=== PATIENT | male | born 1955 | race Caucasian/White ===

== ENCOUNTER → 2018-08-28 | Outpatient (CLI) | payer MEDICARE, OTHER | LOC: M.WC 07:49 | DX: E11.621 Type 2 diabetes mellitus with foot ulcer (principal); L97.522 Non-pressure chronic ulcer of other part of left foot with fat layer exposed; L97.512 Non-pressure chronic ulcer of other part of right foot with fat layer exposed; S80.212A Abrasion, left knee, initial encounter; I50.9 Heart failure, unspecified; E11.22 Type 2 diabetes mellitus with diabetic chronic kidney disease; N18.6 End stage renal disease; E11.40 Type 2 diabetes mellitus with diabetic neuropathy, unspecified; Z86.73 Personal history of transient ischemic attack (TIA), and cerebral infarction without residual deficits; Z79.4 Long term (current) use of insulin; Z99.2 Dependence on renal dialysis; X58.XXXA Exposure to other specified factors, initial encounter; Y93.89 Activity, other specified; Y92.89 Other specified places as the place of occurrence of the external cause; Y99.8 Other external cause status ==

== ENCOUNTER → 2018-08-30 | Outpatient (CLI) | payer MEDICARE, OTHER | LOC: M.WC 04:31 | DX: E11.621 Type 2 diabetes mellitus with foot ulcer (principal); L97.511 Non-pressure chronic ulcer of other part of right foot limited to breakdown of skin; L97.521 Non-pressure chronic ulcer of other part of left foot limited to breakdown of skin; S80.211A Abrasion, right knee, initial encounter; E11.22 Type 2 diabetes mellitus with diabetic chronic kidney disease; N18.6 End stage renal disease; I50.9 Heart failure, unspecified; Z99.2 Dependence on renal dialysis; Z86.73 Personal history of transient ischemic attack (TIA), and cerebral infarction without residual deficits; Z79.4 Long term (current) use of insulin; X58.XXXA Exposure to other specified factors, initial encounter; Y93.89 Activity, other specified; Y92.89 Other specified places as the place of occurrence of the external cause; Y99.8 Other external cause status ==

== ENCOUNTER → 2018-09-04 | Outpatient (CLI) | payer MEDICARE, OTHER | LOC: M.WC 04:56 | DX: E11.621 Type 2 diabetes mellitus with foot ulcer (principal); L97.511 Non-pressure chronic ulcer of other part of right foot limited to breakdown of skin; L97.521 Non-pressure chronic ulcer of other part of left foot limited to breakdown of skin; S80.211A Abrasion, right knee, initial encounter; E11.22 Type 2 diabetes mellitus with diabetic chronic kidney disease; N18.6 End stage renal disease; I50.9 Heart failure, unspecified; Z86.73 Personal history of transient ischemic attack (TIA), and cerebral infarction without residual deficits; Z79.4 Long term (current) use of insulin; X58.XXXA Exposure to other specified factors, initial encounter; Y93.89 Activity, other specified; Y92.89 Other specified places as the place of occurrence of the external cause; Y99.8 Other external cause status ==

== ENCOUNTER → 2018-09-11 | Outpatient (CLI) | payer MEDICARE, OTHER | LOC: M.WC 03:31 | DX: E11.621 Type 2 diabetes mellitus with foot ulcer (principal); L97.512 Non-pressure chronic ulcer of other part of right foot with fat layer exposed; L97.522 Non-pressure chronic ulcer of other part of left foot with fat layer exposed; L84 Corns and callosities; E11.22 Type 2 diabetes mellitus with diabetic chronic kidney disease; N18.6 End stage renal disease; I50.9 Heart failure, unspecified; Z99.2 Dependence on renal dialysis; Z79.4 Long term (current) use of insulin; Z86.73 Personal history of transient ischemic attack (TIA), and cerebral infarction without residual deficits ==

== ENCOUNTER → 2018-09-16 | Outpatient (CLI) | payer MEDICARE, OTHER | LOC: M.ULTRA 12:20 | DX: E11.621 Type 2 diabetes mellitus with foot ulcer (principal); L97.529 Non-pressure chronic ulcer of other part of left foot with unspecified severity; L97.519 Non-pressure chronic ulcer of other part of right foot with unspecified severity ==

== ENCOUNTER → 2018-09-18 | Outpatient (CLI) | payer MEDICARE, OTHER | LOC: M.WC 05:24 | DX: E11.621 Type 2 diabetes mellitus with foot ulcer (principal); L97.521 Non-pressure chronic ulcer of other part of left foot limited to breakdown of skin; L97.512 Non-pressure chronic ulcer of other part of right foot with fat layer exposed; L97.411 Non-pressure chronic ulcer of right heel and midfoot limited to breakdown of skin; L84 Corns and callosities; E11.22 Type 2 diabetes mellitus with diabetic chronic kidney disease; N18.6 End stage renal disease; E11.42 Type 2 diabetes mellitus with diabetic polyneuropathy; I50.9 Heart failure, unspecified; Z86.73 Personal history of transient ischemic attack (TIA), and cerebral infarction without residual deficits; Z99.2 Dependence on renal dialysis ==

== ENCOUNTER → 2018-10-02 | Outpatient (CLI) | payer MEDICARE, OTHER | LOC: M.WC 05:10 | DX: E11.621 Type 2 diabetes mellitus with foot ulcer (principal); L97.512 Non-pressure chronic ulcer of other part of right foot with fat layer exposed; L97.521 Non-pressure chronic ulcer of other part of left foot limited to breakdown of skin; E11.22 Type 2 diabetes mellitus with diabetic chronic kidney disease; N18.6 End stage renal disease; I50.9 Heart failure, unspecified; Z86.73 Personal history of transient ischemic attack (TIA), and cerebral infarction without residual deficits; Z99.2 Dependence on renal dialysis ==

== ENCOUNTER → 2018-10-16 | Outpatient (CLI) | payer MEDICARE, OTHER | LOC: M.WC 10-09 14:30 | DX: E11.621 Type 2 diabetes mellitus with foot ulcer (principal); L97.512 Non-pressure chronic ulcer of other part of right foot with fat layer exposed; L97.412 Non-pressure chronic ulcer of right heel and midfoot with fat layer exposed; L97.521 Non-pressure chronic ulcer of other part of left foot limited to breakdown of skin; E11.42 Type 2 diabetes mellitus with diabetic polyneuropathy; E11.22 Type 2 diabetes mellitus with diabetic chronic kidney disease; N18.6 End stage renal disease; I50.9 Heart failure, unspecified; Z86.73 Personal history of transient ischemic attack (TIA), and cerebral infarction without residual deficits; Z99.2 Dependence on renal dialysis ==

== ENCOUNTER → 2018-10-23 | Outpatient (CLI) | payer MEDICARE, OTHER | LOC: M.WC 04:57 | DX: E11.621 Type 2 diabetes mellitus with foot ulcer (principal); L97.521 Non-pressure chronic ulcer of other part of left foot limited to breakdown of skin; L97.511 Non-pressure chronic ulcer of other part of right foot limited to breakdown of skin; E11.22 Type 2 diabetes mellitus with diabetic chronic kidney disease; I50.9 Heart failure, unspecified; N18.6 End stage renal disease; Z86.73 Personal history of transient ischemic attack (TIA), and cerebral infarction without residual deficits; Z99.2 Dependence on renal dialysis ==

== ENCOUNTER 2018-11-06 04:57 | Inpatient (IN) | payer MEDICARE, OTHER ==
[~2018-11-06] VITALS: Ht 180.3 cm; Wt 82.6 kg
[2018-11-06 14:35] VITALS: BP 150/90
[2018-11-06 15:41] LABS: ABSOLUTE BASOPHILS 0.1 thou/uL (0.0-0.2); ABSOLUTE EOSINOPHILS 0.2 thou/uL (0.0-0.7); ABSOLUTE LYMPHOCYTES 1.2 thou/uL (0.8-5.3); ABSOLUTE MONOCYTES 0.4 thou/uL (0.0-1.2); ABSOLUTE NEUTROPHILS 6.3 thou/uL (1.6-8.1); BASOPHILS 0.8 %; EOSINOPHILS 1.9 %; HEMATOCRIT 27.4 % (42.0-52.0); HEMOGLOBIN 9.4 gm/dL (14.0-18.0); LYMPHOCYTES 14.1 %; MCH 31.7 pg (26.0-34.0); MCHC 34.4 g/dL (28.0-37.0); MCV 92.1 fL (80.0-100.0); MONOCYTES 5.5 %; MPV 7.7 fl. (7.2-11.1); NUCLEATED RBCS 0 /100WBC; PLATELET COUNT* 389 thou/uL (150-400); POLYS 77.7 %; RBC 2.97 mil/uL (4.50-6.00); RDW-CV 14.2 % (10.5-14.5); WBC 8.2 thou/uL (4.0-11.0)
[2018-11-06 15:51] LABS: APTT 31.9 Seconds (25.0-31.3); INR 1.1; PROTIME 10.8 Seconds (9.20-11.50)
[2018-11-06 15:55] LABS: ALBUMIN 2.4 g/dL (3.4-5.0); CALCIUM 7.5 mg/dL (8.5-10.1); CREATININE 5.1 mg/dL (0.6-1.3); MAGNESIUM 1.9 mg/dL (1.8-2.4); POTASSIUM 3.8 mmol/L (3.5-5.1); TOTAL BILIRUBIN 0.3 mg/dL (<0.1-1.0)
[2018-11-06 16:00] VITALS: BP 142/84
[2018-11-06] MEDS ORDERED: BUMEX2 MG PO (17:12)
[2018-11-06] MEDS ORDERED: DULERA 100 MCG/13 GM INH (17:13)
[2018-11-06] MEDS ORDERED: NEURONTIN 300300 M1 PO (17:13)
[2018-11-06] MEDS ORDERED: GABAPENTIN 100100 MG PO (17:14)
[2018-11-06] MEDS ORDERED: HUMULIN R100 UNIT/M SUBQ (17:14)
[2018-11-06] MEDS ORDERED: SYNTHROID125 MC1 PO (17:15)
[2018-11-06] MEDS ORDERED: HUMULIN N100 UNIT/1 SUBQ (17:15)
[2018-11-06] MEDS ORDERED: SIMVASTATIN40 MG PO (17:16)
[2018-11-06] MEDS ORDERED: PROTONIX40 M1 PO (17:16)
[2018-11-06] MEDS ORDERED: PLAVIX 75 MG TA75 M1 PO (17:17)
[2018-11-06] MEDS ORDERED: RENVELA800 MG PO (17:17)
[2018-11-06] MEDS ORDERED: ASPIR 8181 MG PO (17:17)
[2018-11-06] MEDS ORDERED: RENAL CAPS SOFTG1 MG PO (17:17)
--- NOTE | 2018-11-06 17:40 | NUR ---
PATIENT ARRIVED FROM WOUND CARE CENTER THIS AFTERNOON DIRECT ADMIT. WOUNDS TO RIGHT FOOT. IV STARTED AND IV ANTIBIOTICS INFUSED ORDERED. PATIENT HAS COMPLAINTS OF PAIN, TREATED ADEQUATELY WITH MORPHINE. PATIENT SEEN BY DR BROWNING AND WOUND CARE NURSE AND DR HUTCHINSON. PATIENT HAS DIALYSIS T//SAT NEPHROLOGY AWARE. PATIENT IS UP AD ISRAEL WITH SCOOTER. PATIENT DENIES ANY NEEDS AT THIS TIME. CALL LIGHT WITHIN REACH.
[2018-11-06 21:11] VITALS: BP 135/58
[2018-11-07 03:56] VITALS: BP 122/48
[2018-11-07 04:58] LABS: ALBUMIN 2.2 g/dL (3.4-5.0); CALCIUM 7.4 mg/dL (8.5-10.1); CREATININE 5.4 mg/dL (0.6-1.3); POTASSIUM 3.6 mmol/L (3.5-5.1); TOTAL BILIRUBIN 0.3 mg/dL (<0.1-1.0); TOTAL PROTEIN 5.7 g/dL (6.4-8.2)
--- NOTE | 2018-11-07 05:15 | NUR ---
PATIENT A/O X4. UP AD ISRAEL. LOWER EXTREMETIES ARE SWOLLEN. HE HAS DIALYSIS PORT ON LEFT SIDE. DIALYSIS NURSE KAYLENE CALLED AND REQUESTED A CMP FOR DR DURÁN SHE WILL BE IN TODAY FOR DIALYSIS APPOINTMENT AROUND 0730. PATIENT RECEIVED SCHEDULED NAFCILLIN IV THROUGH SHIFT AND MORPHINE 4MG EVERY 2 HOURS. HE WAS ABLE TO SLEEP THROUGH THE NIGHT. DOPPLERS ORDERED FOR TODAY AND PAIN MANAGEMENT STILL AN ISSUE. HE ONLY WANTED 30 OF HIS 40 UNITS INSULIN AND REFUSED HIS 3 UNITS OF SLIDING SCALE WITH BS AT 159 AT BED TIME. WILL CONTINUE TO MONITOR.
[2018-11-07 08:55] VITALS: BP 145/58
--- NOTE | 2018-11-07 12:10 | CON ---
[address] [address] CONSULTATION Name: ARTEM MANCILLA SALEEM Room: [address] ADM IN M.R.#: [id number] Admission: 11/06/18 Attend Phys: Vincent Greco MD Discharge: Date of : 59 Report #: [id number] THIS REPORT FOR: //name// CC: Pippa Greco DATE OF SERVICE: 11/06/2018 INFECTIOUS DISEASE CONSULTATION ATTENDING PHYSICIAN: Vincent Greco MD REASON FOR EVALUATION: Gangrenous changes involving the fourth and fifth right toes setting of chronic ulcers vasculopathy. HISTORY OF PRESENT ILLNESS: Chart reviewed, patient examined. This is a 63-year-old man with diabetes mellitus diagnosed roughly 40 years ago, has been complicated by vasculopathy, end-stage renal disease, on hemodialysis for the last 1-2 years, who has had a chronic ulceration involving the plantar aspect of his right foot as well as the lateral foot. Subsequently, developed gangrenous changes. He describes his toes turning black specifically the fourth and fifth due to concerns about progressive illness. It is felt he needed more intensive care. He is tentatively scheduled to undergo operative procedure. He did have a culture collected on 10/23/2018, polymicrobial growth including susceptible Staph aureus as well as pseudomonas. The latter vitro sensitive to ciprofloxacin, empirically placed on Cipro add nafcillin. At this point, he is not encephalopathic. He has a moderate amount of pain associated with the right distal lower extremity. No recent fevers or chills. Appetite has been fair. Weight has been reasonably stable. No pulmonary or gastrointestinal related complaints. ALLERGIES: None known. MEDICATIONS: Include nafcillin 1 gram q. 4h, Cipro, insulin, p.r.n. analgesics and antiemetics. PAST MEDICAL HISTORY: Includes above noted diabetes mellitus with sequelae including peripheral neuropathy, vasculopathy, end-stage renal disease, on thrice weekly hemodialysis, COPD, cardiomyopathy with congestive heart failure, previous stroke. FAMILY HISTORY: Reviewed available. REVIEW OF SYSTEMS: Otherwise, unremarkable 10-point review of systems was otherwise noted in [place] [address] CONSULTATION Name: ARTEM MANCILLA Room: [address] IN [facility]#: [id number] Admission: 11/06/18 Attend Phys: Vincent Greco MD Discharge: Date of : 59 Report #: [id number] PHYSICAL EXAMINATION: GENERAL: He is alert, cooperative, appropriate, appears reasonably well nourished, mild distress. VITAL SIGNS: Stable. HEENT: Normocephalic. Extraocular muscles intact. NECK: Supple. LUNGS: Somewhat diminished, otherwise clear breath sounds. HEART: Regular. Does have a systolic murmur. ABDOMEN: Soft, nontender, no peritoneal signs. EXTREMITIES: Distal lower extremities noted as a dressing on the right-side, review the photographs for areas of concern including the fifth toe, fourth toe, lateral foot as well as the plantar foot. GENITOURINARY: Deferred. LABORATORY DATA: Reviewed culture results from 10/23/2018 susceptible Pseudomonas including quinolones and also Staph aureus in vitro resistant to clindamycin, erythromycin, Oxacillin JOVANNY of 1. ASSESSMENT: Right distal lower extremity deep infection apparently polymicrobial. At this point, he is not toxic appearing or systemically ill. We will continue combination therapy. Did discussed with Dr. Casper ongoing evaluation. I suspect will need operative intervention. We will monitor expectantly. Certainly at risk for additional nosocomial related complications. <ELECTRONICALLY SIGNED> By: David Zabala MD 11/07/18 1210 1518 [id number] antonio Zabala MD /nt
--- NOTE | 2018-11-07 12:21 | NUR ---
SW met with pt to complete initial assessment, introduce self, and SW role. Pt expressed that he was not able to sleep well and he keeps trying to go to sleep but staff coming in and out of pt room as needed; pt said he was getting "grumpy". Pt lives at home with his son. Pt is unsure of any dc needs at this time. SW to continue to follow to assist with safe dc planning.
--- NOTE | 2018-11-07 18:50 | NUR ---
REPORT RECEIVED FROM KAYLENE AT 1740. PATIENT RETURNED TO UNIT 1750. PATIENT AWAKE IN BED WITH FAMILY AT BEDSIDE. NO SIGNS OF DISTRESS OBSERVED. ALL SAFETY MEASURES MAINTAINED.
[2018-11-07 19:40] VITALS: BP 116/50
[2018-11-08 03:57] LABS: HEMATOCRIT 27.2 % (42.0-52.0); HEMOGLOBIN 9.3 gm/dL (14.0-18.0); MCH 31.6 pg (26.0-34.0); MCHC 34.3 g/dL (28.0-37.0); MCV 92.2 fL (80.0-100.0); MPV 7.3 fl. (7.2-11.1); RBC 2.96 mil/uL (4.50-6.00); RDW-CV 14.8 % (10.5-14.5); WBC 9.7 thou/uL (4.0-11.0)
[2018-11-08 04:20] LABS: ALBUMIN 2.4 g/dL (3.4-5.0); CALCIUM 7.5 mg/dL (8.5-10.1); MAGNESIUM 1.7 mg/dL (1.8-2.4); POTASSIUM 4.1 mmol/L (3.5-5.1); TOTAL BILIRUBIN 0.5 mg/dL (<0.1-1.0); TOTAL PROTEIN 5.9 g/dL (6.4-8.2)
[2018-11-08 04:27] LABS: CREATININE 3.7 mg/dL (0.6-1.3)
--- NOTE | 2018-11-08 05:36 | NUR ---
PATIENT HAS REMAINED ALERT AND ORIENTED X 4 THROUGHOUT THE SHIFT AND RESTING AT INTERVALS ON HOURLY ROUNDS. MEDICATED FOR PAIN UTILIZING BOTH ORAL AND IV MEDICATIONS TO GOOD EFFECT. NPO AT MIDNIGHT FOR TODAY'S PROCEDURE. PER ORDER WHEN NPO RECEIVED 1/2 DOSE HS NPH INSULIN AND NO SLIDING SCALE. LAB DRAW GLUCOSE AT 0330 AND RESULTING AT 0430 WAS 49. FLOOR CHECK AT 0430 33. PER STANDING ORDERS RECEIVED 100ML D10 OVER SIX MINUTES BY PUMP. FOLLOW-UP GLUCOSE BY LAB DRAW POST INFUSION 87. PATIENT WAS NOT AWARE HIS SUGAR HAD DROPPED. SKIN WARM AND DRY. DRESSING RIGHT FOOT CLEAN AND DRY. ANTIBIOTICS PROVIDED ORDERED. VITAL SIGNS STABLE. CONTINUE TO MONITOR.
--- NOTE | 2018-11-08 09:08 | CON ---
[address] [address] CONSULTATION Name: ARTEM MANCILLA Room: [address] IN M.R.#: [id number] Admission: 11/06/18 Attend Phys: Vincent Greco MD Discharge: Date of : 59 Report #: [id number] THIS REPORT FOR: //name// CC: Pippa Greco DATE OF SERVICE: 11/07/2018 REASON FOR CONSULTATION: Consultation was obtained by Dr. Soto for end-stage renal disease, to provide dialysis during the hospital stay. HISTORY OF PRESENT ILLNESS: The patient is a 63-year-old gentleman well known to me. He has a history of end-stage renal disease, on hemodialysis at the [facility]. His dialysis days are Sunday, and Sunday. He was admitted because of worsening infection and gangrenous changes in his right foot second toe. He is supposed to have an amputation of the toe. We were asked to provide dialysis during the hospital stay. PAST MEDICAL HISTORY: End-stage renal disease, on hemodialysis; diabetes, he is on insulin; history of chronic obstructive pulmonary disease; history of cerebrovascular accidents; history of pacemaker and congestive heart failure. PERSONAL, SOCIAL AND FAMILY HISTORY: Reviewed. He continues to smoke. PHYSICAL EXAMINATION: GENERAL: On my examination, he is awake. He is alert. He answers all questions appropriately. No fevers, rigors or chills are reported. VITAL SIGNS: Blood pressure is 145/58, pulse is 78 and temperature is 36.3. LUNGS: Clear. HEART: Regular S1, S2. ABDOMEN: Soft. EXTREMITIES: Left upper arm brachiocephalic fistula with good thrill; 2+ edema bilateral lower extremities, more so on the right; right foot has a dressing and was not opened. LABORATORY DATA: His labs show white count of 8.2, hemoglobin of 9.4; BUN is 40, creatinine is 5.4, potassium is 3.6. ASSESSMENT: 1. End-stage renal disease. 2. Peripheral vascular disease. 3. Diabetes. 4. Hypertension. 5. Lower extremity edema. 6. Left [place] [address] CONSULTATION Name: ARTEM MANCILLA Room: [address] IN [facility]#: [id number] Admission: 11/06/18 Attend Phys: Vincent Greco MD Discharge: Date of : 59 Report #: [id number] PLAN: 1. End-stage renal disease, dialysis today on Sunday, and Sunday schedule and continue the same while in the hospital. 2. Anemia. Epogen while the patient is in the hospital. 3. Foot surgery with amputation planned for tomorrow morning. 4. We will continue to follow while the patient is in the hospital. Thank you for the consultation. <ELECTRONICALLY SIGNED> By: Conor Parks MD 11/08/18907 1232 0001Hemmary Parks MD /nt
[2018-11-08 09:35] VITALS: BP 136/55
[2018-11-08 10:48] VITALS: BP 136/55
--- NOTE | 2018-11-08 10:48 | NUR ---
PROVIDER ON FLOOR WHEN BLOOD SUGAR WAS TAKEN AND CL AT 30.
--- NOTE | 2018-11-08 12:04 | NUR ---
PT IN PREOP FOR BLOOD SUGAR OF 35.
--- NOTE | 2018-11-08 14:47 | NUR ---
PT ARRIVED BACK FROM PACU ABOUT 1430. VITALS STABLE. DENIED PAIN. IV PATENT. DRESSING C/D/I. WILL CONTINUE TO MONITOR.
--- NOTE | 2018-11-08 15:02 | EKG ---
[place] [address] ELECTROCARDIOGRAM REPORT Name: ARTEM MANCILLA Room: [address] ADM IN M.R.#: [id number] Admission: 11/06/18 Attend Phys: Vincent Greco MD Discharge: Date of : 59 Report #: [id number] THIS REPORT FOR: //name// [facility] Test Date: 2018-11-08 Test Time: 10:39:42 Pat Name: ARTEM MANCILLA Department: Room: [address] Gender: M Dramatic Director: AT : 1955 Requested By: Jasson Casper Order Number: [id number] Capri MD: Xu Cornelius Measurements Intervals [place] Rate: 65 P: 33 AK: 130 QRS: 129 QRSD: 157 T: -26 QT: 491 QTc: 511 Interpretive Statements Atrial-sensed ventricular-paced complexes No further analysis attempted due to paced rhythm No previous ECG available for comparison Electronically Signed On 11-08-2018 15:02:29 CDT by Xu Cornelius [email or web address] <ELECTRONICALLY SIGNED> By: Xu Cornelius MD, [facility] 11/08/18 1502 1039 Xu Cornelius MD, FACC /EPI
--- NOTE | 2018-11-08 16:45 | NUR ---
PT A&Ox4. VITALS STABLE. DRESSING IS C/D/I. DENIED PAIN. DENIED N/V. FAMILY IN ROOM. IV PATENT, SL. TOLERATING FOOD AND DRINK. HAS NOT GOT UP SINCE SURGERY. CALL LIGHT WITHIN REACH. FALL PRECAUTIONS IN PLACE. WILL CONTINUE TO MONITOR.
[2018-11-08 17:40] VITALS: BP 146/104
[2018-11-08 20:00] VITALS: BP 137/58
[2018-11-09 01:15] VITALS: BP 137/59
[2018-11-09 04:47] LABS: HEMATOCRIT 26.5 % (42.0-52.0); HEMOGLOBIN 8.9 gm/dL (14.0-18.0); MCHC 33.4 g/dL (28.0-37.0); MCV 92.8 fL (80.0-100.0); MPV 7.7 fl. (7.2-11.1); RBC 2.86 mil/uL (4.50-6.00); RDW-CV 14.6 % (10.5-14.5); WBC 9.7 thou/uL (4.0-11.0)
[2018-11-09 04:59] LABS: CALCIUM 7.8 mg/dL (8.5-10.1); MAGNESIUM 1.9 mg/dL (1.8-2.4); POTASSIUM 4.8 mmol/L (3.5-5.1)
[2018-11-09 05:00] VITALS: BP 147/57
[2018-11-09 05:00] LABS: CREATININE 5.4 mg/dL (0.6-1.3)
--- NOTE | 2018-11-09 06:30 | NUR ---
Alert and oriented x 4. He has been in bed all of this shift. R foot bulky acewrap dressing is clean,dry and intact and elevated on a pillow. Vitals have been stable all of this shift. O2 on roomair has been 94-95%. His left upper arm has dialysis fistula and it has positive bruit and thrill. He is supposed to have dialysis today. He has not had any urine output this shift but he said that is not unusual. His blood sugar was 98 at bedtime but no insulin was given b/c of sudden drops in blood sugar yesterday and also he's had a poor appetite and he has dialysis today. He has had pain meds x 4 this shift. He as slept in very short intervals this shift.
[2018-11-09 08:15] VITALS: BP 149/60
--- NOTE | 2018-11-09 10:37 | CON ---
[address] [address] CONSULTATION Name: ARTEM MANCILLA SALEEM Room: [address] IN M.R.#: [id number] Admission: 11/06/18 Attend Phys: Vincent Greco MD Discharge: Date of : 59 Report #: [id number] THIS REPORT FOR: //name// CC: Pippa Greco DATE OF SERVICE: 11/06/2018 REASON FOR ADMISSION: Gangrene right fourth toe with cellulitis and worsening pain. HISTORY OF PRESENT ILLNESS: The patient is a 63-year-old male admitted directly from [facility] for worsening infection to the right distal foot with gangrene of the fourth toe. He has type 2 diabetes mellitus with peripheral arterial disease with end-stage renal disease, on hemodialysis. Recent wound cultures grew methicillin sensitive Staph aureus and Pseudomonas. He has been on oral Cipro 250 mg p.o. b.i.d. for roughly 2 weeks with good tolerance. I have been treating him as an outpatient at [facility] for bilateral plantar forefoot wound sustained while walking on a hot surface around the pool. The foot wounds have healed, but he has residual ulceration to the right medial hallux and right fourth and fifth toes. He has had increasing pain, swelling and inflammation of the distal right foot with some purplish discoloration to the lateral fifth metatarsophalangeal joint. He denies fevers, chills, nausea or malaise. He has been limping on the foot in a surgical shoe the last several days. Recent foot radiographs were negative for osteomyelitis to the fourth toe. Recent arterial Doppler showed triphasic waveforms to the right leg, becoming monophasic to the infrapopliteal region with falsely elevated ABIs likely due to calcific medial sclerosis. He dialyzes Sunday, and Sunday. LABORATORY DATA: WBC 8.2, RBC 2.97, hemoglobin 9.4, hematocrit 27.4, platelets 389, BUN 40, creatinine 5.4, glucose 45, albumin 2.2. PHYSICAL EXAMINATION: VITAL SIGNS: Temperature 98.1, pulse 62, respirations 16, blood pressure 135/58. EXTREMITIES: The right fourth toe is completely necrotic with black discoloration and wet gangrene. No visible bone noted. There is localized inflammation to the base of the toe and to the distal right forefoot consistent with cellulitis. The area is exquisitely painful to touch. There is a full thickness ulceration with fibrotic tissue to the distal medial aspect of the right fifth toe. There is some purplish blotchy discoloration to the right lateral fifth metatarsophalangeal joint region. No popliteal adenopathy noted. Negative Homans' and Nicole sign to bilateral extremities. The lesions to the plantar forefoot are healed bilaterally without inflammation[place] [address] CONSULTATION Name: ARTEM MANCILLA SALEEM Room: [address] IN [facility]#: [id number] Admission: 11/06/18 Attend Phys: Vincent Greco MD Discharge: Date of : 59 Report #: [id number] pulses bilaterally. IMPRESSION: Gangrene right fourth toe with localized cellulitis, type 2 diabetes mellitus with peripheral artery disease, end-stage renal disease, on dialysis. PLAN: The patient requires further vascular workup and future toe amputation. He was directly admitted from [facility], and I ordered a noninvasive arterial Doppler ultrasound and foot radiographs. We will follow tomorrow with further recommendation. <ELECTRONICALLY SIGNED> By: Jasson Casper DPM 11/09/18 1037 1841 0207Jasson Casper DPM /nt
--- NOTE | 2018-11-09 10:37 | CON ---
[address] [address] CONSULTATION Name: ARTEM MANCILLA SALEEM Room: [address] IN M.R.#: [id number] Admission: 11/06/18 Attend Phys: Vincent Greco MD Discharge: Date of : 59 Report #: [id number] THIS REPORT FOR: //name// CC: Pippa Greco DATE OF SERVICE: 11/06/2018 ADMISSION DIAGNOSES: Gangrene, right fourth toe, with osteomyelitis, and diabetes mellitus with peripheral arterial disease. HISTORY OF PRESENT ILLNESS: A 63-year-old male admitted directly from [facility] for wet gangrene to the right fourth toe and clinical ischemia to the distal right foot. I have been treating him as an outpatient at [facility] for plantar forefoot wound sustained when he walked on hot concrete surrounding a pool earlier this summer. He had multiple full thickness ulcerations to the plantar forefeet with several digital wounds. X-ray from 10/23/2018 was negative for bone destruction. Arterial Doppler from 09/16/2018 showed triphasic waveforms to the right leg, becoming monophasic to the infrapopliteal region with no signs of focal stenosis. ABIs are falsely elevated bilaterally, likely due to medial calcific sclerosis. Wound culture from 10/23 grew Pseudomonas and methicillin-sensitive Staphylococcus aureus. He has been on oral Cipro 250 mg b.i.d. since with good tolerance. He has been afebrile. Denies fevers, chills, or malaise. He has had increasing pain to the right distal foot, particularly the necrotic fourth toe. He has chronic kidney disease, on hemodialysis. Currently placed on parenteral Cipro 400 mg b.i.d. PHYSICAL EXAMINATION: Right fourth toe is completely necrotic and moist. It is exquisitely tender to the touch, no visible bone. There is localized inflammation proximal to the toe with some ischemic skin changes to the distal forefoot along the base of the fourth and fifth toes, extending to the lateral fifth metatarsal region. There is some blotchy purpura along the lateral fifth metatarsal head and base of the fifth toe, which also has a wound to the distal medial aspect with necrotic slough. He has nonpalpable pedal pulses bilaterally. He has a wound to the right medial hallux with yellow slough. The plantar forefeet have dry keratosis with no exposure of the subcutaneous layer. No popliteal adenopathy, negative calf pain. Toenails are dystrophic, consistent with onychomycosis. IMPRESSION: Wet gangrene, right fourth toe; peripheral arterial disease; type 2 diabetes mellitus; and chronic kidney disease, on hemodialysis. PLAN: The patient requires amputation of the right fourth and possibly fifth toes. I would like a vascular consultation prior to surgical intervention since the distal forefoot has some changes typical [place] [address] CONSULTATION Name: MORENAIldaARTEMSAMSON MONGE Room: [address] IN ..#: [id number] Admission: 11/06/18 Attend Phys: Vincent Greco MD Discharge: Date of : 59 Report #: [id number] Infectious Disease consult note read, recommend painting the toe with Betadine and placing Aquacel Ag between them with a dry gauze dressing. We will follow the patient tomorrow. I ordered a noninvasive arterial Doppler exam with PVRs, ABIs, and segmental pressures. Foot radiographs were also ordered. <ELECTRONICALLY SIGNED> By: Jasson Casper DPM 11/09/18 1037 0726 [id number] Casper DPM /vinny
--- NOTE | 2018-11-09 10:37 | CON ---
[address] [address] CONSULTATION Name: ARTEM MANCILLA Room: [address] ADM IN M.R.#: [id number] Admission: 11/06/18 Attend Phys: Vincent Greco MD Discharge: Date of : 59 Report #: [id number] THIS REPORT FOR: //name// CC: Pippa Greco DATE OF SERVICE: 11/07/2018 CHIEF COMPLAINT: Followup of gangrene, right fourth toe with diabetes mellitus, PAD and cellulitis. Results of his arterial Doppler ultrasound are pending. A read Vascular Surgery's note, unclear at this time whether he will require any endovascular procedure. The patient's pain is improved on medication. He has been afebrile, nonweightbearing today. He is on parenteral nafcillin and Cipro per Dr. Zabala. Yesterday's foot radiographs were negative for bone destruction or subcutaneous emphysema. Blood cultures pending x 2. He dialyzed today. LABORATORY DATA: Sodium 138, potassium 3.6, chloride 101, CO2 of 30, BUN 40, creatinine 5.4, glucose 45 and albumin 2.2. PHYSICAL EXAMINATION: Right fourth toe has dry gangrene with localized inflammation of the distal forefoot along the articulation of the metatarsophalangeal joints. Ulceration at the distal medial fifth toe and some purplish splotchy discoloration along the lateral fifth metatarsophalangeal joint. The foot is exquisitely painful to the touch, no popliteal adenopathy. No pallor, cyanosis or signs of acute vascular embarrassment. Nonpalpable pedal pulses bilaterally. IMPRESSION: 1. Gangrene, right fourth toe. 2. Diabetes mellitus. 3. Peripheral arterial disease. 4. End-stage renal disease, on dialysis. 5. Right lower extremity cellulitis. PLAN: We will discuss with Vascular Surgery. He will require fourth and fifth toe amputation, unclear whether he will require any endovascular procedure at this point. Continue pain control, nonweightbearing, parenteral antibiotics. I will keep him n.p.o. past midnight in anticipation of possible surgery tomorrow. <ELECTRONICALLY SIGNED> By: Jasson Casper DPM 11/09/18 1037 1846 0153Dday Casper DPM /nt
[2018-11-09 16:00] VITALS: BP 135/64
--- NOTE | 2018-11-09 16:52 | NUR ---
PATIENT ALERT AND ORIENTED X 4. VITAL SIGNS STABLE ON ROOM AIR. AFEBRILE. VOIDING PER URINAL. IV PATENT AND SALINE LOCKED. PAIN BEING MANAGED WITH PO MEDICATION. DENIES NAUSEA. DRESSING TO RIGHT FOOT C/D/I. FISTULA IN LEFT UPPER ARM WITH POSITIVE BRUIT AND THRILL. DIALYSIS TODAY AND HAD 2.5 LITERS REMOVED. FALL PRECAUTIONS IN PLACE AND BED ALARM ON. HOURLY ROUNDS MAINTAINED THROUGHOUT THE SHIFT. CALL LIGHT WITHIN REACH. NURSING WILL CONTINUE TO MONITOR.
[2018-11-09 20:22] VITALS: BP 145/57
--- NOTE | 2018-11-10 04:57 | NUR ---
PATIENT REQUESTED THAT HIS PAIN MEDS BE BROUGHT IN EVERY 4 HOURS WHICH I DID. HE REQUESTED TO BE LEFT ALONE TO SLEEP AND WAS ABLE TO SLEEP THROUGH THE NIGHT. HIS DRESSING ON HIS RLE IS STILL CLEAN DRY AND INTACT. HE HAD VERY LITTLE URINE OUTPUT IN HIS URINAL THROUGH NIGHT. HIS BLOOD SUGAR AT BEDTIME WAS 88 SO I HELD ALL INSULIN HE STATED HE HAD NOT ATE MUCH. JUST REPORTED THAT HE WAS VERY FATIGUED AND WANTED TO SLEEP. STAYED IN BED ALL NIGHT. HE GOT HIS NAFCILLIN AND CIPRO THROUGH THE NIGHT ORDERED. WILL CONTINUE TO MONITOR.
[2018-11-10 08:15] VITALS: BP 164/59
--- NOTE | 2018-11-10 16:48 | NUR ---
PATIENT ALERT AND ORIENTED X 4. VITAL SIGNS STABLE ON ROOM AIR. AFEBRILE. VOIDING PER URINAL. UP TO CHAIR FOR MEALS. IV PATENT AND SALINE LOCKED. ANTIBIOTICS GIVEN PER MAY. PAIN BEING MANAGED WITH PO MEDICATION. DENIES NAUSEA. DRESSING TO RIGHT FOOT CHANGED TODAY BY DR. BRANNON. C/D/I. FALL PRECAUTIONS IN PLACE AND BED ALARM ON. HOURLY ROUNDS MAINTAINED THROUGHOUT THE SHIFT. CALL LIGHT WITHIN REACH. NURSING WILL CONTINUE TO MONITOR.
[2018-11-10 17:17] VITALS: BP 141/51
[2018-11-10 22:30] VITALS: BP 157/53
--- NOTE | 2018-11-11 04:59 | NUR ---
PATIENT REQUESTED HIS PAIN MEDS BE ADMINISTERED Q4 THIS SHIFT. HE WAS ABLE TO GET UP TO THE BATHROOM USING HIS SCOOTER WITH MINIMAL ASSISTANCE. RECEIVED HIS SCHEDULED PO CIPRO AND IV NAFICILLIN. DIALYSIS SCHEDULED FOR SUNDAY. HE DID NOT REPORT ANY NAUSEA. I HELD HIS INSULIN HIS BED TIME SUGAR WAS 121. HE SLEPT THROUGH THE NIGHT WITHOUT ANY FURTHER ISSUES OF PAIN OR WORSENING OF CONDITIONS. WILL CONTINUE TO MONITOR UNTIL DISCHARGE.
[2018-11-11 05:12] LABS: CALCIUM 7.4 mg/dL (8.5-10.1); CREATININE 5.5 mg/dL (0.6-1.3)
[2018-11-11 08:00] VITALS: BP 169/61
--- NOTE | 2018-11-11 14:00 | NUR ---
AWAITING FINAL WOUND CX. AWAITING DECISION ON REHAB CONSULT. WILL FOLLOW.
[2018-11-11 16:00] VITALS: BP 178/60
--- NOTE | 2018-11-11 16:58 | NUR ---
PT A&Ox4. VITALS STABLE. IV PATENT, SL. UP WITH 1 USING SCOOTER. DENIED N/V. PAIN CONTROLLED WITH NORCO. ACCU CHECK, DID NOT REQUIRE INSULIN DURING SHIFT. TOLERATING DIET. WORKED WELL WITH THERAPY. FALL PRECAUTIONS IN PLACE. CALL LIGHT WITHIN REACH. WILL CONTINUE TO MONITOR.
[2018-11-11 20:14] VITALS: BP 174/60
--- NOTE | 2018-11-12 04:59 | NUR ---
SLEPT THROUGHOUT THE SHIFT. HE DID NOT REPORT ANY PAIN OR NAUSEA. CONTINUED HIS IV NEFICILLIN Q4. DIALYSIS IS SCHEDULED FOR SUNDAY. HE IS UP WITH ASSISTANCE AND USING HIS SCOOTER. NO WORSENING OF CONDITIONS. PAIN IMPROVED AND DRESSING C/D/I. WILL CONTINUE TO MONITOR.
[2018-11-12 07:52] VITALS: BP 183/72
[2018-11-12] MEDS ORDERED: HUMALOG100 UNIT/1 SUBQ (10:16)
[2018-11-12] MEDS ORDERED: AMOX TR-K CLV1 EAC3 PO (10:16)
[2018-11-12] MEDS ORDERED: NORCO 7.5-3251 EACH PO (10:16)
--- NOTE | 2018-11-12 11:41 | NUR ---
CONTINUE TO FOLLOW, DR GAYTAN HERE AND EVALING PT. SPOKE WITH [facility] BROWNLEE, [facility] ACC[facility] HAS ORDERS FOR TODAY, FAXED TO REHAB. PT CURRENTLY IN DIALYSIS. GOES TO [facility] T/R/S WILL FOLLOW
[2018-11-12 11:59] VITALS: BP 183/72
[2018-11-12 16:00] VITALS: BP 184/67
--- NOTE | 2018-11-12 17:43 | NUR ---
PT TRANSFERED TO REHAB FLOOR ABOUT 1739. IV OUT. PT STABLE. PERSONAL ITEMS SENT WITH PT. DRESSING C/D/I.
--- NOTE | 2018-11-12 18:40 | CON ---
[address] [address] CONSULTATION Name: ARTEM MANCILLA SALEEM Room: [address] IN M.R.#: [id number] Admission: 11/06/18 Attend Phys: Vincent Greco MD Discharge: 11/12/18 Date of : 59 Report #: [id number] THIS REPORT FOR: //name// CC: Pippa Greco DATE OF SERVICE: 11/10/2018 CHIEF COMPLAINT: Follow up amputation, right fourth and fifth toes due to osteomyelitis and gangrene of the fourth toe and concomitant penetrating wound to the adjacent fifth toe. He had amputation with partial primary closure 2 days ago. Surgical bone and tissue cultures growing skin car. He is on oral Cipro and parenteral nafcillin with good tolerance. He has been afebrile, relates decreased pain to the foot. He uses a knee walker, although he is allowed to place some weight to the foot in a surgical shoe for transfers and short distances. Stable appetite. He dialyzed yesterday. No new labs for review. PHYSICAL EXAMINATION: Localized inflammation to the right distal kartik-wound. The lateral incision is well coapted, the medial wound measures 2.1 x 2.0 x 0.8 cm. There is yellow/brown fibronecrotic tissue with some red capillary buds to the wound bed. No visible or palpable bone or joint. No fluctuance or crepitation. No pallor, cyanosis or signs of acute vascular embarrassment. IMPRESSION: Osteomyelitis; type 2 diabetes mellitus; peripheral arterial disease; end-stage renal disease, on dialysis. PLAN: I performed an excisional wound debridement with scissors and forceps to remove subcutaneous tissue from the wound bed. Scant bleeding was achieved with pressure. The wound was cleansed and packed with Aquacel Ag and covered with 4 x 4s, Kerlix and Samuel wrap. We will follow up with the patient next Sunday afternoon at [facility] with Dr. Zabala. He currently denies going to a prison facility for rehabilitation. I recommend this, although he wants to go back to his home where he lives with his son. I stressed the importance of remaining nonweightbearing as much as possible, elevating the foot and maximizing glycemic control and nutrition. <ELECTRONICALLY SIGNED> By: Jasson Casper DPM 11/12/18 1840 1121 [id number] Casper DPM /nt
--- NOTE | 2018-11-12 18:40 | OP ---
[address] [address] OPERATIVE REPORT Name: ARTEM MANCILLA SALEEM Room: [address] IN M.R.#: [id number] Admission: 11/06/18 Attend Phys: Vincent Greco MD Discharge: 11/12/18 Date of : 59 Report #: [id number] THIS REPORT FOR: //name// CC: Pippa Greco DATE OF SERVICE: 11/08/2018 SURGEON: Jasson Casper DPM PREOPERATIVE DIAGNOSES: Osteomyelitis with gangrene of right fourth toe, ulceration of right fifth toe. POSTOPERATIVE DIAGNOSES: Osteomyelitis with gangrene of right fourth toe, ulceration of right fifth toe. PROCEDURE: Amputation of right fourth and fifth toes with partial primary closure. ANESTHESIA: General LMA. INJECTABLES: 20 mL of 0.5% Marcaine plain. HEMOSTASIS: Right ankle pneumatic tourniquet at 250 mmHg. SPECIMENS: Right fourth and fifth toes. CULTURES: 1. Bone, right fourth proximal phalanx, aerobic and anaerobic. 2. Soft tissue, right fourth toe, aerobic and anaerobic. ESTIMATED BLOOD LOSS: Minimal. COMPLICATIONS: None. SUTURES: 3-0 nylon. DESCRIPTION OF PROCEDURE: The patient brought to the OR and placed on the table supine with induction of general LMA anesthesia. The foot was exsanguinated with inflation of the tourniquet. A #10 blade was used to create a circumferential incision around the base of the right fourth and fifth toes. Layered anatomic dissection used with electrocautery for hemostasis and dissection. The fourth and fifth toes disarticulated the metatarsophalangeal joints. The metatarsals had normal color and texture with no signs of osteomyelitis at that level. There was some [place] [address] OPERATIVE REPORT Name: ARTEM MANCILLA [facility] Room: [address] IN [facility].#: [id number] Admission: 11/06/18 Attend Phys: Vincent Greco MD Discharge: 11/12/18 Date of : 59 Report #: [id number] tissue medial to the fourth MTP joint along the adjacent base of the third toe. I debrided this tissue sharply and used cauterization, all tendons, subcutaneous tissue and redundant skin were excised. The wound was flushed with sterile saline and dried, 4-0 nylon was used to repair the incision from lateral to medial, although roughly 30% of the medial incision could not be closed due to tissue loss from the infection, that wound was packed with Aquacel Ag, and the incision covered with the same, followed by fluffs, ABDs, Kerlix, and Samuel bandage. The tourniquet was deflated with no active bleeding through the bandage. The patient left the OR alert and oriented with no pain or complications noted. <ELECTRONICALLY SIGNED> By: Jasson Casper DPM 11/12/18 1840 1034 [id number] Casper DPM /vinny
--- NOTE | 2018-11-12 18:40 | CON ---
[address] [address] CONSULTATION Name: ARTEM MANCILLA SALEEM Room: [address] IN M.R.#: [id number] Admission: 11/06/18 Attend Phys: Vincent Greco MD Discharge: 11/12/18 Date of : 59 Report #: [id number] THIS REPORT FOR: //name// CC: Pippa Greco DATE OF SERVICE: 11/09/2018 CHIEF COMPLAINT: Postoperative day #1 for amputation of right fourth and fifth toes for gangrene and osteomyelitis. He relates moderate pain, surgical culture is pending. He is on parenteral Cipro and nafcillin. He is currently dialyzing. LABORATORY DATA: WBC 9.7, RBC 2.86, hemoglobin 8.9, hematocrit 26.5, platelets 387. BUN 30, creatinine 5.4, glucose is 84. PHYSICAL EXAMINATION: The surgical bandage is dry, clean and intact with no bleed through or drainage. No right popliteal adenopathy, negative right calf pain. PLAN: The patient to remain nonweightbearing today, I will initiate partial weightbearing to the heel in a surgical shoe tomorrow with physical therapy. I recommend he go to a retirement facility for rehabilitation, although he is opposed to this idea. I explained the importance of offloading, glycemic control, nutrition, physical rehabilitation and local wound care. I will follow up with him tomorrow for bandage change. <ELECTRONICALLY SIGNED> By: Jasson Casper DPM 11/12/18 1840 1031 [id number] Casper DPM /nt
--- NOTE | 2018-11-14 10:07 | PATH ---
[facility] [address] [place] [address] PATHOLOGY RPT PROCEDURE Name: ARTEM MANCILLA GENE Room: [address] IN M.R.#: [id number] Admission: 11/06/18 Date of : 59 Discharge: 11/12/18 Report #: [id number] Path Case #: [id number] LCA Accession Number: [id number] . 01 Material submitted: . toe - RIGHT FOURTH AND FIFTH TOE. Modifiers: right, fourth, fifth . 01 Clinical history: . Osteomyelitis right fourth toe . 02 Diagnosis: Right fourth/fifth toe: - Benign fourth toe with extensive distal necrosis, acute inflammation and osteomyelitis with proximal disarticulation margin viable and free of osteomyelitis. - Benign fifth toe with nonspecific ulceration, acute inflammation of soft tissues and osteomyelitis of underlying phalanx, with proximal disarticulation margin free of osteomyelitis, and with severe calcifying arteriosclerosis. (RUDDY:cem; 11/13/2018) QTP 11/13/2018 1418 Local . 02 Electronically signed: . Kem Mojica MD, Pathologist NPI- [id number] . 01 Gross description: . The specimen is received in formalin, labeled "Artem Mancilla, right fourth/fifth toe". Received are two separate amputated digits measuring 4.6 x 2.1 x 1.7 and 4.8 x 2.2 x 1.6 cm in greatest dimensions. The bone margins are smooth and concave in appearance, consistent with disarticulation. The bone and soft tissue margin of the smaller toe is inked black. On the smaller toe, the nail is present displaying a valera-brown and thickened appearance. Adjacent to the nail at the distal aspect, there is a poorly circumscribed, irregular in contour and galindo-valera lesion measuring 1.4 x 1.1 cm, which is 0.8 cm from the closest skin margin. The bone and soft tissue margins of the larger toe are inked blue. The nail is present displaying a pale valera and thickened appearance. The distal third of the specimen is brown-black and mummified in appearance. The remainder of the skin is ragged and pale valera to galindo-brown and necrotic in appearance, with exposed underlying bone. The specimen is submitted representatively as follows: . A1-A2 full-thickness cross-section of smaller toe submitted from proximal to distal aspects through the lesion, following decalcification A3-A4 full-thickness longitudinal cross-section through the larger toe submitted from proximal to distal aspects, following decalcification. (CAA; 11/12/2018) [place] [address] PATHOLOGY RPT PROCEDURE Name: ARTEM MANCILLA GENE Room: [address] DIS IN M.R.#: [id number] Admission: 11/06/18 Date of : 59 Discharge: 11/12/18 Report #: [id number] Path Case #: [id number] QAC/QAC 11/13/2018 1141 Local . 02 Pathologist provided ICD-10: M86.8X7, I96, L97.519 . 02 CPT . 210419, [id number] Specimen Comment: A courtesy copy of this report has been sent to Specimen Comment: [phone], , . Specimen Comment: Report sent to ,DR BAILEY / DR BENTLEY Specimen Comment: A duplicate report has been generated due to demographic updates. Performed at: 01 [facility] [address], [place] [address] MD Elliot Lloyd MD Phone: [phone] Performed at: 02 [facility] [address], [place], [place] [id number] MD Kem Mojica MD Phone: [phone]
== END 2018-11-12 17:37 | DRG 255 ==
LOC: M.WC 04:57 → M.ORTHSURG 13:19 → M.WC 14:00 → M.ORTHSURG 11-12 17:37
PROVIDERS: Internal Medicine Nephrology; ADMIT Internal Medicine
PROC: 5A1D70Z Performance of Urinary Filtration, Intermittent, Less than 6 Hours Per Day (ICD-10-PCS; principal; 2018-11-07)
PROC: 0Y6V0Z0 Detachment at Right 4th Toe, Complete, Open Approach (ICD-10-PCS; 2018-11-08)
PROC: 0Y6X0Z0 Detachment at Right 5th Toe, Complete, Open Approach (ICD-10-PCS; 2018-11-08)
PROC: 5A1D70Z Performance of Urinary Filtration, Intermittent, Less than 6 Hours Per Day (ICD-10-PCS; 2018-11-09)
PROC: 5A1D70Z Performance of Urinary Filtration, Intermittent, Less than 6 Hours Per Day (ICD-10-PCS; 2018-11-12)
DX: E11.52 Type 2 diabetes mellitus with diabetic peripheral angiopathy with gangrene (principal); N18.6 End stage renal disease; L03.115 Cellulitis of right lower limb; E44.0 Moderate protein-calorie malnutrition; I42.9 Cardiomyopathy, unspecified; M86.8X7 Other osteomyelitis, ankle and foot; L97.919 Non-pressure chronic ulcer of unspecified part of right lower leg with unspecified severity; M31.9 Necrotizing vasculopathy, unspecified; I96 Gangrene, not elsewhere classified; E11.69 Type 2 diabetes mellitus with other specified complication; E11.42 Type 2 diabetes mellitus with diabetic polyneuropathy; J44.9 Chronic obstructive pulmonary disease, unspecified; I50.9 Heart failure, unspecified; E11.22 Type 2 diabetes mellitus with diabetic chronic kidney disease; B96.89 Other specified bacterial agents as the cause of diseases classified elsewhere; F17.210 Nicotine dependence, cigarettes, uncomplicated; D64.9 Anemia, unspecified; B96.5 Pseudomonas (aeruginosa) (mallei) (pseudomallei) as the cause of diseases classified elsewhere; E11.621 Type 2 diabetes mellitus with foot ulcer; E11.649 Type 2 diabetes mellitus with hypoglycemia without coma; Z99.2 Dependence on renal dialysis; Z79.899 Other long term (current) drug therapy; Z79.4 Long term (current) use of insulin; Z86.73 Personal history of transient ischemic attack (TIA), and cerebral infarction without residual deficits; Z95.0 Presence of cardiac pacemaker; Z22.321 Carrier or suspected carrier of Methicillin susceptible Staphylococcus aureus; Z82.3 Family history of stroke; Z83.6 Family history of other diseases of the respiratory system; Z68.25 Body mass index [BMI] 25.0-25.9, adult

== ENCOUNTER 2018-11-12 11:59 | Inpatient (IN) | payer MEDICARE, OTHER ==
[~2018-11-12] VITALS: Ht 180.3 cm; Wt 81.5 kg
--- NOTE | ~2018-11-12 | CON ---
[address] [address] CONSULTATION Name: ARTEM MANCILLA Room: [address] ADM IN M.R.#: [id number] Admission: 11/12/18 Attend Phys: Nando Robles MD Discharge: Date of : 59 Report #: [id number] THIS REPORT FOR: //name// CC: Pippa Robles REASON FOR ADMISSION: Rehabilitation related to right foot deep tissue infection with digital amputation. CHIEF COMPLAINT: The patient admitted to [facility] on 11/06/2018 due to worsening deep tissue infection and gangrene of the right fourth toe. He underwent amputation of the 4th and 5th toes with partial primary closure. He was initially on parenteral antibiotics and transitioned to oral Augmentin 500 mg b.i.d. He is on renal hemodialysis and performing physical and occupational therapy daily. He feels well with good appetite, minimal foot pain after therapy. Surgical cultures positive for group F streptococcus and Bacteroides uniformis. PHYSICAL EXAMINATION: Dressing is dry, clean and intact with no drainage. It was changed earlier today by Blaine, the wound care nurse. I reviewed yesterday's photos which show a healing granular wound bed with some yellowish slough. No erythema or cardinal signs of infection. Lateral sutures are intact with no signs of dehiscence or acute vascular embarrassment. IMPRESSION: Status post amputation, right fourth and fifth digits with osteomyelitis, type 2 diabetes mellitus, peripheral arterial disease, chronic renal insufficiency, on hemodialysis. PLAN: I will follow up with the patient as an outpatient at [facility] in 9 days. Continue current dressing changes 3 times a week with Aquacel Ag and gauze. The patient may place partial weight to the foot with assistive device for up to 20 feet. Encouraged to rest and elevate the extremity, maximize glycemic control and nutrition. By: 1739 [id number] Casper DPM /vinny
[~2018-11-12 11:59] MED LIST: AMOX TR-K CLV1 EAC3 PO; ASPIR 8181 MG PO; BUMEX2 MG PO; DULERA 100 MCG/13 GM INH; GABAPENTIN 100100 MG PO; HUMALOG100 UNIT/1 SUBQ; HUMULIN N100 UNIT/1 SUBQ; HUMULIN R100 UNIT/M SUBQ; NEURONTIN 300300 M1 PO; NORCO 7.5-3251 EACH PO; PLAVIX 75 MG TA75 M1 PO; PROTONIX40 M1 PO; RENAL CAPS SOFTG1 MG PO; RENVELA800 MG PO; SIMVASTATIN40 MG PO; SYNTHROID125 MC1 PO
[2018-11-12 17:55] VITALS: BP 181/61
--- NOTE | 2018-11-12 19:09 | NUR ---
OBTAINED REPORT FROM MARIA DOLORES MURRY. SHE STATED SHE CHANGED RLE S/I DRSG DUE AND IT WAS DISCUSSED THAT ORTHO HAD NOT PLACED NEW ORDERS, THEY WILL BE CONSULTED ONCE PT ORDERS GET IN. PT TOLERATING PAIN AT THIS TIME, AND RATES HIS PAIN 5/10 UPON ARRIVAL. L ARM AV FISTULA +/+ NOTED AND DRSG ON SITE AT THIS TIME. PT HAD HEMODIALYSIS TODAY AND IT WAS STATED 2.5 L WAS REMOVED. PT GETS HEMODIALYSIS [facility], SAT. REPORT GIVEN TO TANA. WILL SIGN OFF AT THIS TIME
[2018-11-12 19:30] VITALS: BP 170/58
[2018-11-13 04:59] LABS: HEMATOCRIT 27.8 % (42.0-52.0); HEMOGLOBIN 9.6 gm/dL (14.0-18.0); MCH 31.7 pg (26.0-34.0); MCHC 34.6 g/dL (28.0-37.0); MCV 91.4 fL (80.0-100.0); MPV 6.9 fl. (7.2-11.1); RBC 3.04 mil/uL (4.50-6.00); WBC 6.1 thou/uL (4.0-11.0)
[2018-11-13 05:28] LABS: CALCIUM 8.1 mg/dL (8.5-10.1); POTASSIUM 4.4 mmol/L (3.5-5.1)
[2018-11-13 05:31] LABS: CREATININE 4.5 mg/dL (0.6-1.3)
--- NOTE | 2018-11-13 05:38 | NUR ---
ASSUMED CARES AT 1920. ALERT AND ORIENTED. PLEASANT. DENIED ANY NEED FOR PAIN MEDS SAYS THAT PAIN IS TOLERABLE. NWB RLE. DRESSING INTACT TO RIGHT FOOT WITH SMALL AMOUNT OF SANGUINOUS DRAINAGE. GABRIELLA FISTULA WITH DRSG INTACT. ON O2 2L NC PER PT REQUEST. OLIGURIA. PT ASLEEP DURING ROUNDS. CALL LIGHT IN REACH AND BED ALARM ON.
[2018-11-13 07:30] VITALS: BP 173/63
--- NOTE | 2018-11-13 09:16 | NUR ---
Nutrition: Pt admitted to rehab s/p Rt foot amputation. H/o DM, neuropathy, HTN, COPD, PVD, ESRD on HD. RD ordered Cristhian TID for added protein. BG ok, alb 2.4, prealb 16.8, BUN 23, cr 4.5. CHO controlled diet. Wt: stable at 180#. Increased nutrient needs R/T protein AEB protein losses in dialysis, labs above, new foot amputation. GOALS: Cristhian TID, >75% of meals consumed, tight BG control. Mild risk. Will follow weekly.
--- NOTE | 2018-11-13 16:32 | NUR ---
MAMADOU and Dr Robles met with pt to review team conference summary and plan for pt remain on rehab unit another week with team to reassess pt length of stay during team conference on Monday 11/20. Pt okay with plan. Pt lives at home with son who works during the day. Pt is established dialysis pt. Pt has a knee scooter. SW attempted to meet with pt again later in the day; pt sleeping soundly. SW to continue to follow to assist with safe dc planning.
--- NOTE | 2018-11-13 18:47 | NUR ---
1000-CALLED TO FOLLOW UP ON CONSULT WITH DR BRANNON AND WAS TOLD BY STAFF THAT HE WOULD STOP BY AT LUNCH TIME 173-LEFT MESSAGE WITH DR BRANNON ON OFFICE VOICEMAIL AND CALLED WET PLANT OPERATOR TO DISCUSS POSSIBLE OPTIONS REGARDING GETTING ORDERS FROM DR BRANNON. 1740-DR BRANNON CALLED UNIT AND GAVE TELEPHONE ORDERS REGARDING WOUND CARE AND WEIGHTBEARING STATUS, ORDERS PLACED BY THIS RN. DR BRANNON WAS NOT SURE WHY THE PREVIOUS ORDER WAS NOT BEING FOLLOWED AND THIS RN EXPLAINED THAT THE PREVIOUS RN STATED THAT THOSE ORDERS WERE NOT CURRENT AND THAT THEY WERE FROM BEFORE THE AMPUTATION PROCEDURE. THIS RN PASSED THIS INFORMATION ON TO NIGHT RN SINCE PT ARRIVED SO LATE IN THE SHIFT ON 11/12/18. AT THIS TIME THE PT WOUND HAS BEEN CLEANED, PHOTOS TAKEN, AND REDRESSED PER THE ORDER. WOUND RN HAS ALSO BEEN CONSULTED FOR FOLLOW UP CARE. WILL PASS ON TO NIGHT RN.
[2018-11-13 20:08] VITALS: BP 145/59
--- NOTE | 2018-11-13 23:56 | NUR ---
ASSUMED CARE AT 1930. PATIENT HAD VISITORS. ATE HS SNACK SITTING ON SIDE OF BED. TURNS SELF. ALERT AND ORIENTED. DRESSING C/D/I TO RT FOOT, ELEVATED ON PILLOW. HAS BEEN IN BED SINCE BEGINNING OF SHIFT, BUT IS PWB TO HEEL. GABRIELLA FISTULA C/D/I. O2 2L/NC PER REQUEST. HAS NOT VOIDED THUS FAR THIS SHIFT. NO C/O PAIN. TAKES PILLS WHOLE WITH WATER. HOURLY ROUNDS CONTINUE. BED ALARM ON. CALL LITE IN REACH.
--- NOTE | 2018-11-14 05:21 | NUR ---
RESTED IN BED ALL SHIFT, SOMETIMES WAS OBSERVED AWAKE WATCHING TV, OTHER TIMES SLEEPING. NO VOIDS THUS FAR THIS SHIFT. TURNS SELF. NO C/O PAIN. HOURLY ROUNDS CONTINUE. BED ALARM ON. CALL LITE IN REACH.
[2018-11-14 08:00] VITALS: BP 145/59
--- NOTE | 2018-11-14 10:33 | NUR ---
DR. BRANNON'S OFFICE CALLED AND MESSAGE LEFT ASKING WHEN HE WOULD BE HERE TO SEE PT,PT HAS VOICED CONSERNS. DRESSING WAS CHANGED LAST NIGHT AND REINFORCED THIS AM PER PT REQUEST WITH NO DRAINAGE NOTED.PT SITS IN CHAIR WITH RT.FOOT ELEVATED.PRN FOR PAIN GIVEN WITH REPORT OF FAIR EFFECT. PT ALERT AND ORIENTATED.
--- NOTE | 2018-11-14 13:43 | NUR ---
WOUND CARE NOTE: CONSULT RECEIVED FOR PATIENT IS POD #6 FROM A 4TH AND 5TH RIGHT TOE AMPUTATION. ULCERATION TO THE AREA WHERE THE 4TH TOE WOULD HAVE BEEN, MEASURING 2X2.2X1. YELLOW, MOIST ADHERENT SLOUGH TISSUE. CLEANSED WITH SALINE, PATTED DRY. INCISION LINE DISTAL TO THIS ULCERATION, SUTURES IN PLACE. INCISION LINE IS EDEMATOUS WITH INFLAMMATION. INFLAMMATION AND EDEMA NOTED TO ULCER CALVIN-WOUND. APPLIED AQUACEL AG TO ULCER AND OVER INCISION LINE. COVERED WITH ABD. SECURED WITH KERLIX THEN JASSON WRAP. SPOKE WITH DR. BROWNING REGARDING FINDINGS. SPOKE AT LENGTH WITH PATIENT REGARDING NUTRTION, OFFLOADING, BLOOD SUGAR CONTROL. PATIENT COMMUNICATED UNDERSTANDING, WILL NEED ENCOURAGEMENT. PATIENT QUESTIONED IF HE COULD STILL DRIVE, INSTRUCTED HIM TO SPEAK WITH TRAINING AND DEVELOPMENT PROJECT LEADER REGARDING THIS. PATIENT STATES HE NEEDS TO DRIVE TO DIALYSIS. SPOKE WITH TILTING SAW OPERATOR REGARDING PATIENT'S SITUATION. RECOMMEND LIMIT WEIGHT BEARING ON RIGHT FOOT SURGICAL SHOE WHEN AMBULATING ENCOURAGE GOOD NUTRTION/HYDRATION TIGHT BLOOD GLUCOSE CONTROL DAILY DRESSING CHANGES.
--- NOTE | 2018-11-14 16:54 | NUR ---
SW met with pt to discuss and provide resources/referrals for possible transportation assistance, cares program, other general community resources/information. SW attempted to brainstorm options to assist with transport but pt said that he really did not think he had anyone who would be willing to take him to dialysis at 5:30 am. SW to assist with possible Share a Fare application and discussed other options but pt not extremely receptive and also said that he would not be able to pay much for a long time.
--- NOTE | 2018-11-14 18:15 | NUR ---
pt has participated with therapies today adn calls for assist with transferrs useing knee scooter with gaitbelt on.prn for rt.foot pain given this am with good effect.dressing changed by wound nurse this afternoon. pt in dialysis now and has lt upper arm shunt with good b+t.pt remains alert and orientated but is depressed with wound to foot and dialysis being late today. pt reasured. pt did eat early supper box lunch befor dialysis.
[2018-11-14 21:08] VITALS: BP 174/64
--- NOTE | 2018-11-15 05:17 | NUR ---
ASSUMED CARES AT 1920. PT RETURNED FROM DIALYSIS AT 2100. ALERT AND ORIENTED. PLEASANT. BOXED LUNCH GIVEN PER PT REQUEST. GABRIELLA FISTULA WITH DRSG INTACT WITH GOOD THRILL/BRUIT. DRSG TO RIGHT FOOT INTACT. O2 2L NC AT NIGHT. DENIED ANY NEED FOR PAIN MED. OLIGURIA. PT SEEN SLEEPING ON ROUNDS. CALL LIGHT IN REACH AND BED ALARM ON.
[2018-11-15 08:22] VITALS: BP 154/65
[2018-11-15 16:09] LABS: HEPATITIS B SURFACE AG Negative (Negative)
--- NOTE | 2018-11-15 16:29 | NUR ---
PT HAS PARTICIPATED WITH THERAPIES TODAY. PRN FOR RT.FOOT PAIN GIVEN THIS AM WITH GOOD EFFECT. DRESSING TO RT. FOOT DRY AND INTACT,PT AWAITING VISIT FROM DR. BRANNON THIS EVENING. PT HAS EATEN LUNCH IN DINNINGROOM LOW DOSE SLIDING SCALE INDICATED. PT HAD DIALYSIS LAST EVENING WITH NO BLEEDING FROM CATH SITES.PT REMAINS ALERT AND ORIENTATED.
[2018-11-15 18:42] LABS: URINE BLOOD 1+ (Negative); URINE CLARITY CLEAR; URINE COLOR YELLOW; URINE GLUCOSE-RANDOM 1+ (Negative); URINE KETONES TRACE (Negative); URINE LEUKOCYTES-REFLEX NEGATIVE (Negative); URINE NITRITE-REFLEX NEGATIVE (Negative); URINE PROTEIN 3+ (Negative); URINE SPECIFIC GRAVITY 1.015 (1.005-1.030); URINE UROBILINOGEN 0.2 E.U./dl (0.2-1.0)
[2018-11-15 18:46] LABS: ICTOTEST (BILI CONFIRMATORY) Negative (Negative); URINE BILIRUBIN 1+ (Negative)
[2018-11-15 18:54] LABS: HYALINE CASTS >10 Many /LPF (None Seen); MUCUS None Seen strn/LPF (None Seen); SQUAMOUS 0-3 Few /LPF (0-3)
[2018-11-15 18:55] LABS: BACTERIA-REFLEX 1-9 Few /HPF (None Seen); CRYSTALS None Seen /LPF (None Seen); URINE RBC 0-2 Rare /HPF (0-2); URINE WBC-REFLEX 0-5 Rare /HPF (0-5)
[2018-11-15 20:14] VITALS: BP 151/57
--- NOTE | 2018-11-16 05:00 | NUR ---
ASSUMED CARES AT 1920. ALERT AND ORIENTED. IRRITABLE AT TIMES. PT SAID "I JUST WANT TO SLEEP!" AND DIDN'T WANT TO BE BOTHERED. PARTIAL WT BEARING RLE. O2 2L NC. DRSG TO RIGHT FOOT INTACT. DENIED ANY NEED FOR PAIN MED. REFUSED HS SNACK. NO ISSUES OVERNIGHT. CALL LIGHT IN REACH.
[2018-11-16 08:17] VITALS: BP 146/66
--- NOTE | 2018-11-16 16:54 | NUR ---
ASSUMED CARE AT 0730. ALERT ORIENTED PLEASANT COOPERATIVE. HX OF AMPUTATION OF 4TH AND 5TH TOES RT. FOOT. JASSON WRAP C/D/I TO RT. LEG AND FOOT. MEDICATED X 1 WITH PRN PAIN MED BEFORE O.T. THIS A.M. TAKES MEDS WITHOUT DIFFICULTY. FEEDS SELF APPETITE GOOD. USES KNEE SCOOTER DUE TO WEIGHT BEARING STATUS RT. FOOT. TRANSFERS WITH SBA G BELT VOIDED 200CCS OF MARIA R URINE PER URINAL AT 0900. USES CALL LIGHT APPROPRIATELY FOR ASSIST. PTS. ABDOMEN RT. LOWER QUADRANT CONTINUES TO BLEED AFTER HEPARIN SUBCUTNEOUS INJECTION. BANDAIDS X 2. PLACED. PT. IN DIALYSIS AFTER THERAPIES COMPLETED.
[2018-11-16 20:13] VITALS: BP 166/60
--- NOTE | 2018-11-17 01:19 | NUR ---
ASSUMED CARE AT 1930. PATIENT RESTING IN BED. C/O THAT HE CONTINUES TO FEEL THE NEED FOR OXYGEN. O2 SAT CHECKED MULTIPLE TIMES WITH MULTIPLE FINGERS, AND ALL 98-100 WITH OXYGEN. STATES AT HOME HE ONLY NEEDS IT AT NIGHT. REPORTS HE HAS A CONCENTRATOR AT HOME AND DOES NOT HAVE OXYGEN TANKS AT HOME. EDUCATION AND REASSURANCE GIVEN. ALSO C/O THAT HIS GABAPENTIN WAS CHANGED, EDUCATED ON EFFECTS OF DIMINISHED RENAL FUNCTION AND ELIMINATION OF GABAPENTIN. VERBALIZED UNDERSTANDING OF ALL INFO. DRESSING TO RT FOOT C/D/I, OCCLUSIVE AND WOUND NOT VISUALIZED. TAKES PILLS WHOLE WITH WATER. NO C/O PAIN. TURNS SELF IN BED. AV FISTULA TO RT UPPER ARM DRESSING C/D/I. THRILL AND BRUIT PRESENT. HOURLY ROUNDS CONTINUE. BED ALARM ON. CALL LITE IN REACH.
--- NOTE | 2018-11-17 05:37 | NUR ---
SLEPT MOST OF THE NIGHT. NO C/O PAIN. NO NEED TO VOID EXPRESSED. TURNS SELF. HOURLY ROUNDS CONTINUE. BED ALARM ON. CALL LITE IN REACH.
[2018-11-17 07:00] VITALS: BP 156/60
--- NOTE | 2018-11-17 15:58 | NUR ---
ASSUMED CARE AT 0730. ALERT ORIENTED PLEASANT COOPERATIVE. HX OF AMPUTATION OF 4TH AND 5TH TOES RT. FOOT DRESSING CHANGED THIS AFTERNOON. TRANSFERS WITH SBA G BELT KNEE SCOOTER. MEDICATED WITH PRN PAIN MED THIS A.M. PER PT. REQUEST. APPETITE GOOD TAKES MEDS WITHOUT DIFFICULTY. L UPPER ARM FISTULA HAS DRESSING FROM DIALYSIS YESTERDAY. USES CALL LIGHT APPPROPRIATELY FOR ASSISTANCE. VISITORS THIS AFTERNOON.
[2018-11-17 19:30] VITALS: BP 160/64
--- NOTE | 2018-11-18 02:53 | NUR ---
ASSUMED CARE @ -SUN.SITS IN BSCHAIR W/ RIGHT LE UP ON A SCOOTER. FAMILY VISITING.ORTHOPEDIC SHOE ON RIGHT FOOT & OFF @ 2019.FOUND IN BED @ 2014 W/ HOB UP.02 ON ALREADY @ 2L/NC.BED ALARM PUT ON @ 2014.LEFT UPPER ARM SHUNT/ FISTULA W/ GOOD BRUIT & GOOD THRILL.TWO URINALS W/IN REACH.WANTS DOOR CLOSED & ALL LIGHTS OFF @ NIGHT.PWB RIGHT HEEL OBSERVED.ICE PACK APPLIED TO RIGHT LOWER ABD AFTER HEPARIN SQ GIVEN @ HS.ON HOURLY ROUNDS.STORE STANDARDS ASSOCIATE DOING ODD HOUR ROUNDS.
--- NOTE | 2018-11-18 06:51 | NUR ---
sleeping since 2200 & slept good ALL NIGHT.USED URINAL X1 ONLY.REFUSED HS SNACK.
[2018-11-18 07:36] VITALS: BP 141/61
--- NOTE | 2018-11-18 14:48 | NUR ---
WOUND NURSE: PATIENT SEEN TO ADDRESS SKIN LESION ON THE RIGHT GREAT TOE WHICH OCCURRED WHEN PATIENT WAS TRANSPORTED OFF THE UNIT IN HIS WHEELCHAIR. PRESENTS A SHALLOW EROSION CONTAINING PARTIAL THICKNESS TISSUE LOSS AND EXPOSING RED, NONGRANULATING TISSUE IN THE WOUND BED. THERE WAS A SMALL AMOUNT OF SANGUINOUS DRAINAGE APPARENT. CLEANSED WITH WOUND CLEANSER AND GAUZE, APPLIED AQUACEL AG UNDER GAUZE, THEN SECURED WITH TAPE. THIS WAS TOLERATED WELL BY THE PATIENT. ALSO REMOVED DRESSING FROM RIGHT FOOT POSTOPERATIVE SITE AND CLEANSED WITH WOUND CLEANSER AND GAUZE, APPLIED AQUACEL AG UNDER ABD, THEN WRAPPED WITH KERLEX ROLL GAUZE AND SECURED WITH AN JASSON WRAP. THE WOUND BED CONTAINS SUTURES ALONG A WELL APPROXIMATED EDGE ON THE PROXIMAL END OF THE WOUND, AND THERE IS AN OPENING AT THE DISTAL POINT CONTAINING A LAYER OF LIGHT YELLOW SLOUGH. THERE IS A MODERATE AMOUNT OF YELLOW DRAINAGE NOTED. THERE IS SOME LOCALIZED REDNESS AND SWELLING NOTED.
--- NOTE | 2018-11-18 17:44 | NUR ---
ASSUMED CARE AT 0730. ALERT ORIENTED PLEASANT COOPERATIVE. HX OF RT. 4TH-5TH TOES AMPUTATION. PARTICIPATING IN THERAPIES AND ORDER RECEIVED FOR MODIFIED INDEPENDENT IN ROOM ON KNEE SCOOTER. WHILE PARTICIPATING IN P.T. SESSION PT. WAS USING KNEE SCOOTER OUTSIDE A ROCK WAS ON WALKWAY AND PT. PLACED RT. FOOT ON GROUND RECEIVED ABRASION WHICH BLED A BIT AREA CLEANSED REDRESSED BY R. N. THEN WOUND NURSE SAW PT. AND CHANGED DRESSING TO RT. TOES AMPUTATION AND TOOK PICTURE. DR. BROWNING HERE THIS AFTERNOON SAW PT. WANTS TO SEE PT. APPT. IS IN ORDERS.
[2018-11-18 19:30] VITALS: BP 122/59
--- NOTE | 2018-11-19 01:12 | NUR ---
ASSUMED CARE @ 1939-11/18-SUNDAY.ALREADY SLEEPING IN BED @ 1939 W/ HOB UP. URINALS W/IN REACH.ORTHOPEDIC SHOE RIGHT FOOT OFF @ THIS TIME.BED ALARM PUT ON @ 1939.AWAKENED @ 2009 FOR HS MEDS & ASSESSMENT.O2 2L/NC ALREADY ON @ 2009. WANTS ONLY SIDERAILS X2 UP,ALL LIGHTS OFF & DOOR CLOSED @ NIGHT.MOD.IND IN ROOM.ON HOURLY ROUNDS.BEHAVIORAL INTERVENTION SPECIALIST DOING ODD HOUR ROUNDS.
--- NOTE | 2018-11-19 05:07 | NUR ---
SLEEPING EARLY SINCE 194 & SLEPT GOOD ALL NIGHT.AWAKENED @ 0400 FOR BLOOD DRAW BY LAB.REFUSED HS SNACK.FOR DIALYSIS TODAY-SUNDAY.
--- NOTE | 2018-11-19 05:21 | NUR ---
NO VOIDING DURING NIGHT.
[2018-11-19 05:33] LABS: ABSOLUTE BASOPHILS 0.1 thou/uL (0.0-0.2); ABSOLUTE EOSINOPHILS 0.2 thou/uL (0.0-0.7); ABSOLUTE LYMPHOCYTES 1.2 thou/uL (0.8-5.3); ABSOLUTE MONOCYTES 0.5 thou/uL (0.0-1.2); ABSOLUTE NEUTROPHILS 6.8 thou/uL (1.6-8.1); BASOPHILS 0.9 %; EOSINOPHILS 2.5 %; HEMATOCRIT 27.9 % (42.0-52.0); HEMOGLOBIN 9.7 gm/dL (14.0-18.0); LYMPHOCYTES 13.8 %; MCH 31.9 pg (26.0-34.0); MCHC 34.7 g/dL (28.0-37.0); MCV 91.8 fL (80.0-100.0); MONOCYTES 6.1 %; MPV 7.8 fl. (7.2-11.1); NUCLEATED RBCS 0 /100WBC; PLATELET COUNT* 428 thou/uL (150-400); POLYS 76.7 %; RBC 3.04 mil/uL (4.50-6.00); RDW-CV 15.1 % (10.5-14.5); WBC 8.8 thou/uL (4.0-11.0)
[2018-11-19 05:37] LABS: HEMATOCRIT 26.6 % (42.0-52.0); HEMOGLOBIN 9.3 gm/dL (14.0-18.0); MCH 32.2 pg (26.0-34.0); MCHC 35.1 g/dL (28.0-37.0); MCV 91.8 fL (80.0-100.0); MPV 7.8 fl. (7.2-11.1); RBC 2.9 mil/uL (4.50-6.00); RDW-CV 14.9 % (10.5-14.5); WBC 8.9 thou/uL (4.0-11.0)
[2018-11-19 06:31] LABS: ALBUMIN 2.4 g/dL (3.4-5.0); CALCIUM 8.2 mg/dL (8.5-10.1); CREATININE 6.1 mg/dL (0.6-1.3); MAGNESIUM 2.1 mg/dL (1.8-2.4); POTASSIUM 5.2 mmol/L (3.5-5.1); TOTAL BILIRUBIN 0.4 mg/dL (<0.1-1.0); TOTAL PROTEIN 6.1 g/dL (6.4-8.2)
--- NOTE | 2018-11-19 06:44 | NUR ---
VOIDED 500 ML @ 0615 X1 ONLY DURING NIGHT.NURSE ONLY EMPTIES URINAL.
[2018-11-19 08:00] VITALS: BP 159/56
[2018-11-19 10:45] VITALS: BP 138/49
[2018-11-19 12:10] VITALS: BP 138/49
[2018-11-19 12:25] VITALS: BP 135/51
[2018-11-19 12:45] VITALS: BP 143/52
--- NOTE | 2018-11-19 13:34 | NUR ---
PT IN THERAPY IN [facility] AND COMPLAINED TO THERAPIST OF A FEELING OF ELEPHANT SITTING ON CHEST, VS TAKEN, DR GAYTAN ON UNIT, ORDERS OBTAINED FOR EKG AND TROPONINS, PT RETURNED TO BED, DR EMMANUEL NOTIFIED, ORDER FOR NITRO OBTAINED, RATES PAIN/PRESSURE AT A "5" , NITRO GIVEN X 3 WITH ONLY A SLIGHT DECREASE IN DISCOMFORT, PT DENIES NAUSEA, CONSULT FOR CARDIOLOGY, DR EMMANUEL ON UNIT TO SEE PT, WILL CONTINUE TO MONITOR. THERAPIES BEING HELD THIS PM.
--- NOTE | 2018-11-19 16:52 | NUR ---
ASSUMMED CARE OF PT AT 0730, PT ALERT AND ORIENTED, MOD I IN ROOM, DRESSING CHANGED TO RIGHT FOOT, SMALL AMOUNT OF BLEEDING FROM GREAT TOE ABRASION, SHUNT TO LEFT UPPER ARM HAS GD BRUIT, PT IN THERAPY IN [facility] AND THERAPIST NOTIFIED ME OF PT COMPLAINING OF CHEST PRESSURE, (SEE ADDITIONAL NOTE), CHES T PAIN HAS GOTTEN BETTER AFTERNOON PROGRESSED, CARDIOLOGY HERE TO SEE PT, FEELS IT IS A MUSCULAR PAIN, PT HAVING DIALYSIS THIS AFTERNOON, PT HAS HAD O2 ON MUCH OF SHIFT, PT STATES IT MAKES HIM FEEL BETTER, O2 SATS 98-99 %, PARTICPATED IN SOME THERAPIES THIS SHIFT, LATE MORNING AND AFTERNOON THERAPIES ON HOLD, ASSESSMENT COMPLETE, HOURLY ROUNDING COMPLETE, WILL CONTINUE TO MONITOR.
--- NOTE | 2018-11-19 17:25 | EKG ---
[place] [address] ELECTROCARDIOGRAM REPORT Name: ARTEM MANCILLA Room: [address] ADM IN M.R.#: [id number] Admission: 11/12/18 Attend Phys: Nando Robles MD Discharge: Date of : 59 Report #: [id number] THIS REPORT FOR: //name// [facility] Test Date: 2018-11-19 Test Time: 11:22:14 Pat Name: ARTEM MANCILLA Department: Room: [address] Gender: M [employer] Supervisor: : 1955 Requested By: Nando Robles Order Number: [id number] Capri MD: Dominguez Paula Measurements Intervals [place] Rate: 60 P: 15 NM: 155 QRS: -72 QRSD: 163 T: 77 QT: 478 QTc: 478 Interpretive Statements Atrial-ventricular dual-paced rhythm No further analysis attempted due to paced rhythm Compared to ECG 11/08/2018 10:39:42 Atrial-sensed ventricular-paced complex(es) or rhythm no longer present Electronically Signed On 11-19-2018 17:25:19 CDT by Dominguez Paula [email or web address] <ELECTRONICALLY SIGNED> By: Dominguez Paula MD, FACC 11/19/18 1725 1122 1122 Dominguez Paula MD, [facility] /EPI
[2018-11-19 19:30] VITALS: BP 149/60
--- NOTE | 2018-11-20 02:20 | NUR ---
ASSUMED CARE @ 1934-11/19-.SITS IN BSCHAIR W/ O2 ON.WEARING ORTHOPEDIC SHOE RIGHT FOOT.ANXIOUS.REFUSED DINNER TRAY.WANTS ONLY TURKEY SANDWICH FOR DINNER & GIVEN @ 1934.MOD.IND IN ROOM.SITS EDGE OF BED @ 2005.AT 1934-GOT ORDER FROM DR GAYTAN FOR NOW XANAX & PRN IF NEEDED.XANAX 0.25 MG TAB GIVEN ORAL @ 2005. APPEARS CALM @ 2039.assisted to lie down IN BED @ 2044 W/ HOB UP.TWO URINALS W/IN REACH.WANTS ONLY SIDERAILS X2 UP.WANTS LIGHT IN BATHROOM ON ALL NIGHT & DOOR OPEN ALL NIGHT.GABRIELLA SHUNT W/ GOOD BRUIT & GOOD THRILL.BRP W/ SCOOOTER FOR RIGHT FOOT @ 2209.HAD BM.ON HOURLY ROUNDS.
--- NOTE | 2018-11-20 05:32 | NUR ---
SLEEPING SINCE 2129 & SLEPT GOOD ALL NIGHT.REFUSED HS SNACK.USED URINAL x1. BRP X1 FOR MOD.BM.FOR DISCHARGE TODAY-.
[2018-11-20 07:45] VITALS: BP 140/60
[2018-11-20 09:52] VITALS: BP 140/60
--- NOTE | 2018-11-20 11:47 | 2DMMODE ---
[place] [address] 2 D/M-MODE ECHOCARDIOGRAM Name: ARTEM MANCILLA GENE Room: [address] ADM IN [facility]#: [id number] Admission: 11/12/18 Attend Phys: Nando Robles MD Discharge: Date of : 59 Date of Service: 11/20/18 1146 Report #: [id number] THIS REPORT FOR: //name// APPROVED REPORT Study performed: 11/20/2018 09:56:01 EXAM: Comprehensive 2D, Doppler, and color-flow Echocardiogram Patient Location: In-Patient Room #: [facility] BSA: 2.02 HR: 64 bpm BP: 140/60 mmHg Other Information Study Quality: Excellent Indications Chest Pressure 2D Dimensions IVSd: 10.73 (7-11mm) LVOT Diam: 20.19 (18-24mm) LVDd: 49.81 mm PWd: 12.75 (7-11mm) Ascending Ao: 28.25 (22-36mm) LVDs: 33.27 (25-40mm) Aortic Root: 31.43 mm Volumes Left Atrial Volume (Systole) LA ESV Index: 28.00 mL/m2 Aortic Valve AoV Peak Jacques.: 2.14 m/s AO Peak Gr.: 18.25 mmHg LVOT Max P.59 mmHg AO Mean Gr.: 10.83 mmHg LVOT Mean P.58 mmHg LVOT Max V: 0.81 m/s AO V2 VTI: 47.46 cm LVOT Mean V: 0.60 m/s NAM (VTI): 1.33 cm2 LVOT V1 VTI: 19.77 cm Mitral Valve E/A Ratio: 1.30 MV Decel. Time: 234.13 ms MV E Max Jacques.: 0.83 m/s MV PHT: 67.90 [place] [address] 2 D/M-MODE ECHOCARDIOGRAM Name: ARTEM MANCILLA [facility] Room: [address] IN [facility]#: [id number] Admission: 11/12/18 Attend Phys: Nando Robles MD Discharge: Date of : 59 Date of Service: 11/20/18 1146 Report #: [id number] MVA (PHT): 3.24 cm2 TDI E/Lateral E': 11.86 E/Medial E': 11.86 Medial E' Jacques.: 0.07 m/s Lateral E' Jacques.: 0.07 m/s Pulmonary Valve PV Peak Jacques.: 0.93 m/s PV Peak Gr.: 3.45 mmHg Tricuspid Valve RAP Estimate: 5.00 mmHg TR Peak Gr.: 20.12 mmHg RVSP: 25.12 mmHg PA Pressure: 25.12 mmHg Left Ventricle The left ventricle is normal size. There is normal LV segmental wall motion. Mild concentric left ventricular hypertrophy. Left ventricular systolic function is normal. The left ventricular ejection fraction is within the normal range. LVEF is 55-60%. The left ventricular diastolic function is normal. Right Ventricle The right ventricle is normal size. The right ventricular systolic function is normal. Pacemaker lead is present in the right ventricle. Atria The left atrium size is normal. Pacemaker lead is present in the right atrium. The right atrium size is normal. Aortic Valve Aortic valve is mildly calcified. Mild aortic regurgitation. There is no aortic valvular stenosis. Mitral Valve The mitral valve is normal in structure. Mild mitral regurgitation. No evidence of mitral valve stenosis. Tricuspid Valve The tricuspid valve is normal in structure. Trace tricuspid regurgitation. Pulmonic Valve The pulmonary valve is normal in structure. There is no pulmonic [place] [address] 2 D/M-MODE ECHOCARDIOGRAM Name: ARTEM MANCILLA Room: [address] IN [facility]#: [id number] Admission: 11/12/18 Attend Phys: Nando Robles MD Discharge: Date of : 59 Date of Service: 11/20/18 1146 Report #: [id number] Great Vessels The aortic root is normal in size. IVC is normal in size and collapses >50% with inspiration. Pericardium There is no pericardial effusion. Pleural effusion present <Conclusion> Mild concentric left ventricular hypertrophy. LVEF is 55-60%. Mild aortic regurgitation. Mild mitral regurgitation. Pleural effusion present <ELECTRONICALLY SIGNED> By: Zack Perez MD, [facility] 11/20/18 1146 1146 1146 Zack Perez MD, FACC /INF
[2018-11-20 13:02] VITALS: BP 140/60
--- NOTE | 2018-11-20 13:36 | NUR ---
Team conference held today and MAMADOU and Dr Robles met with pt to review team conference summary and discuss plan for possible dc today pending the assurance that pt would have transportation arranged and that pt would not be driving himself at this point. Pt was upset stating that Dr Casper told him on Sunday that he could drive himself to dialysis. Pt threw his phone across the room in anger when Dr Robles explained that team double checked with Dr Casper's office and the result was that pt was not yet cleared to bear weight on foot and was not advised to be able to drive yet. Dr Robles explained that pt would be able to dc if pt confirmed pt had safe rides. Pt then communicated with his son who agreed to provide pt rides and so pt was cleared to be able to dc. MAMADOU arranged HH services with pt preference of [facility] for RN, PT, OT. Team recommended crutches for mobility in addition to pt knee scooter that pt purchased, SW arranged through [facility] and PT issued to pt prior to pt dc. SW provided Share a fare application to pt that was completed, pt to sign and mail to [employer] to possibly assist with transportation to doctor's appts. SW mentioned [facility] as possible resource, pt thought about it but dc before referral completed; pt wasn't sure he would accept. SW to [facility] with [facility] information, pt to resume dialysis beginning tomorrow.
--- NOTE | 2018-11-20 13:50 | NUR ---
ASSUMMED CARE OF PT AT 0730 PT ALERT AND ORIENTED, PT DENIES ANY CHEST PRESSURE/PAIN THIS SHIFT, TAKING FOOD AND FLUIDS WELL, SHUNT HAS GD BRUIT, DRESSING CHANGE DONE TO RIGHT FOOT, PT MOD I IN ROOM,PARTICIPATED IN ALL THERAPIES, HOURLY ROUNDING COMPLETED, ASSESSMENT COMPLETE, WILL CONTINUE TO MONITOR, DISCHARGE ORDERS OBTAINED, PT NOT TO DRIVE PER DR BROWNING, PT INSTRUCTED ON HOME MEDICATIONS, FALL PRECAUTIONS, HOME HEALTH, WOUND CARE, DIET, FOLLOW UP APPTS, DISCHARGED WITH BELONGINGS TO MAIN ENTRANCE, WITH SCOOTER AND CRUTCHES.
--- NOTE | 2018-11-22 16:35 | NUR ---
PATIENT DISCHARGED ON 11/20/18 HOWEVER LEFT PRIOR TO PM SESSION AND NOLAN REFUSED FAMILY TRAINING.
== END 2018-11-20 13:45 | disposition home health service (06) | DRG 299 ==
LOC: M.REH 11:59
PROVIDERS: Family Medicine; Internal Medicine; Internal Medicine Nephrology; Specialist; ADMIT Physical Medicine & Rehabilitation
PROC: 5A1D70Z Performance of Urinary Filtration, Intermittent, Less than 6 Hours Per Day (ICD-10-PCS; principal; 2018-11-14)
DX: E11.52 Type 2 diabetes mellitus with diabetic peripheral angiopathy with gangrene (principal); N18.6 End stage renal disease; L03.115 Cellulitis of right lower limb; M86.8X7 Other osteomyelitis, ankle and foot; J98.11 Atelectasis; J91.8 Pleural effusion in other conditions classified elsewhere; E11.621 Type 2 diabetes mellitus with foot ulcer; B96.5 Pseudomonas (aeruginosa) (mallei) (pseudomallei) as the cause of diseases classified elsewhere; B95.8 Unspecified staphylococcus as the cause of diseases classified elsewhere; J44.9 Chronic obstructive pulmonary disease, unspecified; E11.40 Type 2 diabetes mellitus with diabetic neuropathy, unspecified; E11.22 Type 2 diabetes mellitus with diabetic chronic kidney disease; E03.9 Hypothyroidism, unspecified; E11.69 Type 2 diabetes mellitus with other specified complication; I50.9 Heart failure, unspecified; D63.1 Anemia in chronic kidney disease; E78.5 Hyperlipidemia, unspecified; Z99.2 Dependence on renal dialysis; Z79.4 Long term (current) use of insulin; Z79.899 Other long term (current) drug therapy; Z95.0 Presence of cardiac pacemaker; Z86.73 Personal history of transient ischemic attack (TIA), and cerebral infarction without residual deficits; Z82.3 Family history of stroke; Z82.5 Family history of asthma and other chronic lower respiratory diseases

== ENCOUNTER → 2018-11-27 | Outpatient (CLI) | payer MEDICARE, OTHER | LOC: M.WC 04:49 | DX: T87.89 Other complications of amputation stump (principal); E11.621 Type 2 diabetes mellitus with foot ulcer; L97.511 Non-pressure chronic ulcer of other part of right foot limited to breakdown of skin; L97.521 Non-pressure chronic ulcer of other part of left foot limited to breakdown of skin; L97.411 Non-pressure chronic ulcer of right heel and midfoot limited to breakdown of skin; E11.22 Type 2 diabetes mellitus with diabetic chronic kidney disease; N18.6 End stage renal disease; I50.9 Heart failure, unspecified; Z86.73 Personal history of transient ischemic attack (TIA), and cerebral infarction without residual deficits; Z99.2 Dependence on renal dialysis; Y83.5 Amputation of limb(s) as the cause of abnormal reaction of the patient, or of later complication, without mention of misadventure at the time of the procedure ==

== ENCOUNTER → 2018-12-11 | Outpatient (CLI) | payer MEDICARE, OTHER | LOC: M.WC 05:25 | DX: T87.89 Other complications of amputation stump (principal); E11.621 Type 2 diabetes mellitus with foot ulcer; L97.512 Non-pressure chronic ulcer of other part of right foot with fat layer exposed; L97.411 Non-pressure chronic ulcer of right heel and midfoot limited to breakdown of skin; L97.521 Non-pressure chronic ulcer of other part of left foot limited to breakdown of skin; E11.69 Type 2 diabetes mellitus with other specified complication; M86.8X7 Other osteomyelitis, ankle and foot; E11.51 Type 2 diabetes mellitus with diabetic peripheral angiopathy without gangrene; E11.22 Type 2 diabetes mellitus with diabetic chronic kidney disease; N18.6 End stage renal disease; I50.9 Heart failure, unspecified; Z99.2 Dependence on renal dialysis; Z86.73 Personal history of transient ischemic attack (TIA), and cerebral infarction without residual deficits; Y83.5 Amputation of limb(s) as the cause of abnormal reaction of the patient, or of later complication, without mention of misadventure at the time of the procedure ==

== ENCOUNTER → 2018-12-25 | Outpatient (CLI) | payer MEDICARE, OTHER | LOC: M.WC 03:59 | DX: T87.89 Other complications of amputation stump (principal); E11.621 Type 2 diabetes mellitus with foot ulcer; L97.512 Non-pressure chronic ulcer of other part of right foot with fat layer exposed; L97.412 Non-pressure chronic ulcer of right heel and midfoot with fat layer exposed; L97.521 Non-pressure chronic ulcer of other part of left foot limited to breakdown of skin; E11.22 Type 2 diabetes mellitus with diabetic chronic kidney disease; N18.6 End stage renal disease; I50.9 Heart failure, unspecified; Z99.2 Dependence on renal dialysis; Z86.73 Personal history of transient ischemic attack (TIA), and cerebral infarction without residual deficits; Y83.5 Amputation of limb(s) as the cause of abnormal reaction of the patient, or of later complication, without mention of misadventure at the time of the procedure ==

== ENCOUNTER → 2019-01-01 | Outpatient (CLI) | payer MEDICARE, OTHER | LOC: M.WC 05:30 | DX: T87.89 Other complications of amputation stump (principal); E11.621 Type 2 diabetes mellitus with foot ulcer; L97.521 Non-pressure chronic ulcer of other part of left foot limited to breakdown of skin; L97.411 Non-pressure chronic ulcer of right heel and midfoot limited to breakdown of skin; L97.512 Non-pressure chronic ulcer of other part of right foot with fat layer exposed; E11.51 Type 2 diabetes mellitus with diabetic peripheral angiopathy without gangrene; E11.22 Type 2 diabetes mellitus with diabetic chronic kidney disease; N18.6 End stage renal disease; I50.9 Heart failure, unspecified; Z99.2 Dependence on renal dialysis; Z86.73 Personal history of transient ischemic attack (TIA), and cerebral infarction without residual deficits; Y83.5 Amputation of limb(s) as the cause of abnormal reaction of the patient, or of later complication, without mention of misadventure at the time of the procedure ==

== ENCOUNTER → 2019-01-08 | Outpatient (CLI) | payer MEDICARE, OTHER | LOC: M.WC 03:18 | DX: T87.89 Other complications of amputation stump (principal); E11.621 Type 2 diabetes mellitus with foot ulcer; L97.411 Non-pressure chronic ulcer of right heel and midfoot limited to breakdown of skin; L97.512 Non-pressure chronic ulcer of other part of right foot with fat layer exposed; L97.521 Non-pressure chronic ulcer of other part of left foot limited to breakdown of skin; E11.40 Type 2 diabetes mellitus with diabetic neuropathy, unspecified; E11.51 Type 2 diabetes mellitus with diabetic peripheral angiopathy without gangrene; E11.22 Type 2 diabetes mellitus with diabetic chronic kidney disease; N18.6 End stage renal disease; I50.9 Heart failure, unspecified; Z99.2 Dependence on renal dialysis; Z86.73 Personal history of transient ischemic attack (TIA), and cerebral infarction without residual deficits; Y83.5 Amputation of limb(s) as the cause of abnormal reaction of the patient, or of later complication, without mention of misadventure at the time of the procedure ==

== ENCOUNTER → 2019-01-22 | Outpatient (CLI) | payer MEDICARE, OTHER | LOC: M.WC 04:55 | DX: T87.89 Other complications of amputation stump (principal); E11.621 Type 2 diabetes mellitus with foot ulcer; L97.411 Non-pressure chronic ulcer of right heel and midfoot limited to breakdown of skin; L97.511 Non-pressure chronic ulcer of other part of right foot limited to breakdown of skin; L97.521 Non-pressure chronic ulcer of other part of left foot limited to breakdown of skin; E11.22 Type 2 diabetes mellitus with diabetic chronic kidney disease; N18.6 End stage renal disease; I50.9 Heart failure, unspecified; Z86.73 Personal history of transient ischemic attack (TIA), and cerebral infarction without residual deficits; Z99.2 Dependence on renal dialysis; Y83.5 Amputation of limb(s) as the cause of abnormal reaction of the patient, or of later complication, without mention of misadventure at the time of the procedure ==

== ENCOUNTER → 2019-02-05 | Outpatient (CLI) | payer MEDICARE, OTHER | LOC: M.WC 03:57 | DX: T87.89 Other complications of amputation stump (principal); E11.621 Type 2 diabetes mellitus with foot ulcer; L97.511 Non-pressure chronic ulcer of other part of right foot limited to breakdown of skin; L97.411 Non-pressure chronic ulcer of right heel and midfoot limited to breakdown of skin; L97.521 Non-pressure chronic ulcer of other part of left foot limited to breakdown of skin; E11.22 Type 2 diabetes mellitus with diabetic chronic kidney disease; N18.6 End stage renal disease; E11.40 Type 2 diabetes mellitus with diabetic neuropathy, unspecified; E11.51 Type 2 diabetes mellitus with diabetic peripheral angiopathy without gangrene; E11.69 Type 2 diabetes mellitus with other specified complication; M86.8X8 Other osteomyelitis, other site; I50.9 Heart failure, unspecified; Z99.2 Dependence on renal dialysis; Z86.73 Personal history of transient ischemic attack (TIA), and cerebral infarction without residual deficits; Y83.5 Amputation of limb(s) as the cause of abnormal reaction of the patient, or of later complication, without mention of misadventure at the time of the procedure ==

== ENCOUNTER → 2019-02-19 | Outpatient (CLI) | payer MEDICARE, OTHER | LOC: M.WC 05:18 | DX: T87.89 Other complications of amputation stump (principal); E11.621 Type 2 diabetes mellitus with foot ulcer; L97.412 Non-pressure chronic ulcer of right heel and midfoot with fat layer exposed; L97.522 Non-pressure chronic ulcer of other part of left foot with fat layer exposed; E11.51 Type 2 diabetes mellitus with diabetic peripheral angiopathy without gangrene; E11.69 Type 2 diabetes mellitus with other specified complication; M86.8X7 Other osteomyelitis, ankle and foot; E11.22 Type 2 diabetes mellitus with diabetic chronic kidney disease; N18.6 End stage renal disease; I50.9 Heart failure, unspecified; Z99.2 Dependence on renal dialysis; Z86.73 Personal history of transient ischemic attack (TIA), and cerebral infarction without residual deficits; Y83.5 Amputation of limb(s) as the cause of abnormal reaction of the patient, or of later complication, without mention of misadventure at the time of the procedure ==

== ENCOUNTER → 2019-02-28 | Outpatient (CLI) | payer MEDICARE, OTHER | LOC: M.WC 04:46 | DX: T87.89 Other complications of amputation stump (principal); E11.621 Type 2 diabetes mellitus with foot ulcer; L97.412 Non-pressure chronic ulcer of right heel and midfoot with fat layer exposed; L97.512 Non-pressure chronic ulcer of other part of right foot with fat layer exposed; E11.22 Type 2 diabetes mellitus with diabetic chronic kidney disease; N18.6 End stage renal disease; E11.42 Type 2 diabetes mellitus with diabetic polyneuropathy; I50.9 Heart failure, unspecified; Z86.73 Personal history of transient ischemic attack (TIA), and cerebral infarction without residual deficits; Z99.2 Dependence on renal dialysis; Y83.5 Amputation of limb(s) as the cause of abnormal reaction of the patient, or of later complication, without mention of misadventure at the time of the procedure ==

== ENCOUNTER → 2019-03-12 | Outpatient (CLI) | payer MEDICARE, OTHER | LOC: M.WC 11:57 | DX: T87.89 Other complications of amputation stump (principal); E11.621 Type 2 diabetes mellitus with foot ulcer; L97.411 Non-pressure chronic ulcer of right heel and midfoot limited to breakdown of skin; L97.511 Non-pressure chronic ulcer of other part of right foot limited to breakdown of skin; L97.521 Non-pressure chronic ulcer of other part of left foot limited to breakdown of skin; E11.22 Type 2 diabetes mellitus with diabetic chronic kidney disease; N18.6 End stage renal disease; E11.42 Type 2 diabetes mellitus with diabetic polyneuropathy; I50.9 Heart failure, unspecified; Z99.2 Dependence on renal dialysis; Z86.73 Personal history of transient ischemic attack (TIA), and cerebral infarction without residual deficits; Y83.8 Other surgical procedures as the cause of abnormal reaction of the patient, or of later complication, without mention of misadventure at the time of the procedure ==

== ENCOUNTER → 2019-03-19 | Outpatient (CLI) | payer MEDICARE, OTHER | LOC: M.WC 07:19 | DX: T87.89 Other complications of amputation stump (principal); E11.621 Type 2 diabetes mellitus with foot ulcer; L97.412 Non-pressure chronic ulcer of right heel and midfoot with fat layer exposed; L97.512 Non-pressure chronic ulcer of other part of right foot with fat layer exposed; E11.22 Type 2 diabetes mellitus with diabetic chronic kidney disease; N18.6 End stage renal disease; I50.9 Heart failure, unspecified; Z99.2 Dependence on renal dialysis; Z86.73 Personal history of transient ischemic attack (TIA), and cerebral infarction without residual deficits; Y83.5 Amputation of limb(s) as the cause of abnormal reaction of the patient, or of later complication, without mention of misadventure at the time of the procedure ==

== ENCOUNTER → 2019-04-02 | Outpatient (CLI) | payer MEDICARE, OTHER | LOC: M.WC 04:24 | DX: E11.621 Type 2 diabetes mellitus with foot ulcer (principal); L97.412 Non-pressure chronic ulcer of right heel and midfoot with fat layer exposed; L97.521 Non-pressure chronic ulcer of other part of left foot limited to breakdown of skin; E11.42 Type 2 diabetes mellitus with diabetic polyneuropathy; E11.22 Type 2 diabetes mellitus with diabetic chronic kidney disease; N18.6 End stage renal disease; I50.9 Heart failure, unspecified; Z86.73 Personal history of transient ischemic attack (TIA), and cerebral infarction without residual deficits; Z89.421 Acquired absence of other right toe(s); Z99.2 Dependence on renal dialysis ==

== ENCOUNTER → 2019-04-16 | Outpatient (CLI) | payer MEDICARE, OTHER | LOC: M.WC 01:33 | DX: T87.89 Other complications of amputation stump (principal); E11.621 Type 2 diabetes mellitus with foot ulcer; L97.412 Non-pressure chronic ulcer of right heel and midfoot with fat layer exposed; L97.521 Non-pressure chronic ulcer of other part of left foot limited to breakdown of skin; E11.22 Type 2 diabetes mellitus with diabetic chronic kidney disease; N18.6 End stage renal disease; I50.9 Heart failure, unspecified; E11.40 Type 2 diabetes mellitus with diabetic neuropathy, unspecified; Z99.2 Dependence on renal dialysis; Z86.73 Personal history of transient ischemic attack (TIA), and cerebral infarction without residual deficits; Y83.5 Amputation of limb(s) as the cause of abnormal reaction of the patient, or of later complication, without mention of misadventure at the time of the procedure ==

== ENCOUNTER → 2019-04-30 | Outpatient (CLI) | payer MEDICARE, OTHER | LOC: M.WC 02:12 | DX: T81.89XD Other complications of procedures, not elsewhere classified, subsequent encounter (principal); E11.621 Type 2 diabetes mellitus with foot ulcer; L97.412 Non-pressure chronic ulcer of right heel and midfoot with fat layer exposed; L97.512 Non-pressure chronic ulcer of other part of right foot with fat layer exposed; L97.521 Non-pressure chronic ulcer of other part of left foot limited to breakdown of skin; L84 Corns and callosities; E11.51 Type 2 diabetes mellitus with diabetic peripheral angiopathy without gangrene; E11.22 Type 2 diabetes mellitus with diabetic chronic kidney disease; N18.6 End stage renal disease; I50.9 Heart failure, unspecified; Z86.73 Personal history of transient ischemic attack (TIA), and cerebral infarction without residual deficits; Z99.2 Dependence on renal dialysis; Y83.8 Other surgical procedures as the cause of abnormal reaction of the patient, or of later complication, without mention of misadventure at the time of the procedure ==

== ENCOUNTER → 2019-05-14 | Outpatient (CLI) | payer MEDICARE, OTHER | LOC: M.WC 04:51 | DX: E11.621 Type 2 diabetes mellitus with foot ulcer (principal); L97.412 Non-pressure chronic ulcer of right heel and midfoot with fat layer exposed; L97.521 Non-pressure chronic ulcer of other part of left foot limited to breakdown of skin; E11.42 Type 2 diabetes mellitus with diabetic polyneuropathy; E11.69 Type 2 diabetes mellitus with other specified complication; M86.8X7 Other osteomyelitis, ankle and foot; E11.51 Type 2 diabetes mellitus with diabetic peripheral angiopathy without gangrene; E11.22 Type 2 diabetes mellitus with diabetic chronic kidney disease; N18.6 End stage renal disease; I50.9 Heart failure, unspecified; Z99.2 Dependence on renal dialysis; Z86.73 Personal history of transient ischemic attack (TIA), and cerebral infarction without residual deficits ==

== ENCOUNTER → 2019-05-21 | Outpatient (CLI) | payer MEDICARE, OTHER | LOC: M.WC 04:15 | DX: E11.621 Type 2 diabetes mellitus with foot ulcer (principal); L97.412 Non-pressure chronic ulcer of right heel and midfoot with fat layer exposed; L97.521 Non-pressure chronic ulcer of other part of left foot limited to breakdown of skin; E11.22 Type 2 diabetes mellitus with diabetic chronic kidney disease; N18.6 End stage renal disease; E11.51 Type 2 diabetes mellitus with diabetic peripheral angiopathy without gangrene; B95.62 Methicillin resistant Staphylococcus aureus infection as the cause of diseases classified elsewhere; I50.9 Heart failure, unspecified; Z99.2 Dependence on renal dialysis; Z86.73 Personal history of transient ischemic attack (TIA), and cerebral infarction without residual deficits ==

== ENCOUNTER → 2019-05-28 | Outpatient (CLI) | payer MEDICARE, OTHER | LOC: M.WC 03:36 | DX: E11.621 Type 2 diabetes mellitus with foot ulcer (principal); L97.412 Non-pressure chronic ulcer of right heel and midfoot with fat layer exposed; L97.521 Non-pressure chronic ulcer of other part of left foot limited to breakdown of skin; E11.22 Type 2 diabetes mellitus with diabetic chronic kidney disease; N18.6 End stage renal disease; E11.40 Type 2 diabetes mellitus with diabetic neuropathy, unspecified; I50.9 Heart failure, unspecified; Z86.73 Personal history of transient ischemic attack (TIA), and cerebral infarction without residual deficits; Z99.2 Dependence on renal dialysis ==

== ENCOUNTER → 2019-06-04 | Outpatient (CLI) | payer MEDICARE, OTHER | LOC: M.WC 05:00 | DX: E11.621 Type 2 diabetes mellitus with foot ulcer (principal); L97.412 Non-pressure chronic ulcer of right heel and midfoot with fat layer exposed; L97.521 Non-pressure chronic ulcer of other part of left foot limited to breakdown of skin; E11.22 Type 2 diabetes mellitus with diabetic chronic kidney disease; N18.6 End stage renal disease; E11.51 Type 2 diabetes mellitus with diabetic peripheral angiopathy without gangrene; E11.42 Type 2 diabetes mellitus with diabetic polyneuropathy; I50.9 Heart failure, unspecified; Z86.73 Personal history of transient ischemic attack (TIA), and cerebral infarction without residual deficits; Z99.2 Dependence on renal dialysis ==

== ENCOUNTER → 2019-06-11 | Outpatient (CLI) | payer MEDICARE, OTHER | LOC: M.WC 04:34 | DX: E11.621 Type 2 diabetes mellitus with foot ulcer (principal); L97.412 Non-pressure chronic ulcer of right heel and midfoot with fat layer exposed; L97.511 Non-pressure chronic ulcer of other part of right foot limited to breakdown of skin; B95.62 Methicillin resistant Staphylococcus aureus infection as the cause of diseases classified elsewhere; E11.51 Type 2 diabetes mellitus with diabetic peripheral angiopathy without gangrene; E11.42 Type 2 diabetes mellitus with diabetic polyneuropathy; E11.69 Type 2 diabetes mellitus with other specified complication; M86.8X7 Other osteomyelitis, ankle and foot; E11.22 Type 2 diabetes mellitus with diabetic chronic kidney disease; N18.6 End stage renal disease; I50.9 Heart failure, unspecified; Z99.2 Dependence on renal dialysis; Z86.73 Personal history of transient ischemic attack (TIA), and cerebral infarction without residual deficits; Z89.421 Acquired absence of other right toe(s) ==

== ENCOUNTER → 2019-06-25 | Outpatient (CLI) | payer MEDICARE, OTHER | LOC: M.WC 03:23 | DX: E11.621 Type 2 diabetes mellitus with foot ulcer (principal); L97.412 Non-pressure chronic ulcer of right heel and midfoot with fat layer exposed; L97.521 Non-pressure chronic ulcer of other part of left foot limited to breakdown of skin; E11.42 Type 2 diabetes mellitus with diabetic polyneuropathy; E11.22 Type 2 diabetes mellitus with diabetic chronic kidney disease; N18.6 End stage renal disease; I50.9 Heart failure, unspecified; Z99.2 Dependence on renal dialysis; Z86.73 Personal history of transient ischemic attack (TIA), and cerebral infarction without residual deficits ==

== ENCOUNTER → 2019-07-02 | Outpatient (CLI) | payer MEDICARE, OTHER | LOC: M.WC 03:16 | DX: E11.621 Type 2 diabetes mellitus with foot ulcer (principal); L97.412 Non-pressure chronic ulcer of right heel and midfoot with fat layer exposed; L97.512 Non-pressure chronic ulcer of other part of right foot with fat layer exposed; L97.521 Non-pressure chronic ulcer of other part of left foot limited to breakdown of skin; E11.42 Type 2 diabetes mellitus with diabetic polyneuropathy; E11.22 Type 2 diabetes mellitus with diabetic chronic kidney disease; N18.6 End stage renal disease; I50.9 Heart failure, unspecified; B95.62 Methicillin resistant Staphylococcus aureus infection as the cause of diseases classified elsewhere; Z99.2 Dependence on renal dialysis; Z86.73 Personal history of transient ischemic attack (TIA), and cerebral infarction without residual deficits ==

== ENCOUNTER → 2019-07-09 | Outpatient (CLI) | payer MEDICARE, OTHER ==
[2019-07-09 13:54] LABS: ABSOLUTE BASOPHILS 0.1 thou/uL (0.0-0.2); ABSOLUTE EOSINOPHILS 0.2 thou/uL (0.0-0.7); ABSOLUTE LYMPHOCYTES 1.4 thou/uL (0.8-5.3); ABSOLUTE MONOCYTES 0.4 thou/uL (0.0-1.2); EOSINOPHILS 2.1 %; HEMATOCRIT 37.7 % (42.0-52.0); MCHC 34.6 g/dL (28.0-37.0); MCV 92.5 fL (80.0-100.0); MONOCYTES 4.6 %; MPV 7.8 fl. (7.2-11.1); NUCLEATED RBCS 0 /100WBC; PLATELET COUNT* 374 thou/uL (150-400); POLYS 77.3 %; RBC 4.08 mil/uL (4.50-6.00); RDW-CV 13.9 % (10.5-14.5)
[2019-07-09 14:02] LABS: CALCIUM 7.7 mg/dL (8.5-10.1); CREATININE 6.3 mg/dL (0.6-1.3)
[2019-07-09 14:07] LABS: ALBUMIN 3.2 g/dL (3.4-5.0); TOTAL BILIRUBIN 0.2 mg/dL (<0.1-1.0); TOTAL PROTEIN 6.9 g/dL (6.4-8.2)
[2019-07-09 14:53] LABS: ESR (SEDRATE) 40 mm/hr (0-20)
[2019-07-10 02:09] LABS: GLYCOHEMOGLOBIN (HGB A1C) 8.1 % (4.8-5.6)
== END ==
LOC: M.WC 05:26
PROVIDERS: Podiatrist Foot & Ankle Surgery
DX: E11.621 Type 2 diabetes mellitus with foot ulcer (principal); L97.416 Non-pressure chronic ulcer of right heel and midfoot with bone involvement without evidence of necrosis; L97.511 Non-pressure chronic ulcer of other part of right foot limited to breakdown of skin; L97.521 Non-pressure chronic ulcer of other part of left foot limited to breakdown of skin; E11.22 Type 2 diabetes mellitus with diabetic chronic kidney disease; N18.6 End stage renal disease; E11.42 Type 2 diabetes mellitus with diabetic polyneuropathy; N18.9 Chronic kidney disease, unspecified; A49.02 Methicillin resistant Staphylococcus aureus infection, unspecified site; I50.9 Heart failure, unspecified; Z86.73 Personal history of transient ischemic attack (TIA), and cerebral infarction without residual deficits; Z99.2 Dependence on renal dialysis; Z89.421 Acquired absence of other right toe(s)

== ENCOUNTER → 2019-07-16 | Outpatient (CLI) | payer MEDICARE, OTHER | LOC: M.WC 02:39 | DX: E11.621 Type 2 diabetes mellitus with foot ulcer (principal); L97.416 Non-pressure chronic ulcer of right heel and midfoot with bone involvement without evidence of necrosis; L97.511 Non-pressure chronic ulcer of other part of right foot limited to breakdown of skin; L97.521 Non-pressure chronic ulcer of other part of left foot limited to breakdown of skin; E11.42 Type 2 diabetes mellitus with diabetic polyneuropathy; E11.22 Type 2 diabetes mellitus with diabetic chronic kidney disease; N18.6 End stage renal disease; I50.9 Heart failure, unspecified; Z86.73 Personal history of transient ischemic attack (TIA), and cerebral infarction without residual deficits; Z99.2 Dependence on renal dialysis ==

== ENCOUNTER → 2019-07-21 | Outpatient (CLI) | payer MEDICARE, OTHER | LOC: M.MRI 12:46 | DX: M86.8X7 Other osteomyelitis, ankle and foot (principal); R60.0 Localized edema; Z89.432 Acquired absence of left foot ==

== ENCOUNTER → 2019-07-23 | Outpatient (CLI) | payer MEDICARE, OTHER ==
--- NOTE | 2019-07-23 15:55 | CON ---
[address] [address] CONSULTATION Name: LAURENTARTEM Contreras Room: [facility].#: [id number] Admission: 07/23/19 Attend Phys: Jasson Casper DPM Discharge: Date of : 59 Report #: [id number] THIS REPORT FOR: //name// cc: Pippa Rothman MD, Allison Louise MD ~ THIS REPORT FOR: //name// CC: Pippa Casper DATE OF SERVICE: 07/23/2019 INFECTIOUS DISEASE CONSULTATION He is seen as a referral from Dr. Jasson Casper at the outpatient wound care center, [facility], [place], [place]. REASON FOR EVALUATION: Suspected chronic osteomyelitis involving the lateral aspect of his right foot with prominent longstanding ulcer with culture-proven MRSA and MRI evidence of bony changes to suggest osteomyelitis. HISTORY OF PRESENT ILLNESS: Chart reviewed, the patient examined. This is a 64-year-old, actually known to myself, who has had seen in 11/2018, has diabetes mellitus type 2, longstanding, has been complicated by vasculopathy, including end-stage renal disease; he is on dialysis. At that point, he had undergone amputation of right fourth and fifth toes and partial primary closure in the setting of an ulcer with gangrene. He did receive therapy at that point. Isolation of group F strep as well as Bacteroides. More recent culture has chronic wound that has been there for last several months with growth of MRSA. He was initiated on therapy with vancomycin 3 times a week with dialysis. He denies systemic illness. No fevers or chills. Appetite has been good. Weight has been stable. No pulmonary or gastrointestinal-related complaints. Due to the recent MRI with changes, suggestive of osteomyelitis, there was a discussion about further surgical intervention. ALLERGIES: None known. MEDICATIONS: Include gabapentin, simvastatin, Proventil, Dulera, Renvela, sevelamer, Humulin, Novolin, bumetanide, [place], clopidogrel, levothyroxine, and vancomycin. PAST MEDICAL HISTORY: Includes diabetes mellitus with its attended complications, previous toe amputations, peripheral neuropathy, end-stage renal disease; on dialysis, COPD, cardiomyopathy with congestive heart failure, [place] [address] CONSULTATION Name: LAURENTARTEM G Room: [facility]#: [id number] Admission: 07/23/19 Attend Phys: Jasson Casper DPM Discharge: Date of : 59 Report #: [id number] SOCIAL HISTORY: Is disabled. FAMILY HISTORY: Is not available. Otherwise, unremarkable. REVIEW OF SYSTEMS: Otherwise, unremarkable 10-point review of systems with exception of the above. PHYSICAL EXAMINATION: GENERAL: He is alert, cooperative, appropriate. He is in no overt distress. He appears somewhat chronically ill, mildly undernourished. VITAL SIGNS: Stable. HEENT: Normocephalic. LUNGS: Breathing is nonlabored. EXTREMITIES: Right foot has a roughly circular lesion over bony prominence lateral aspect of the foot at the fifth metatarsal site; there is exposed bone and has a yellowish color. There is no particular odor, no purulence. Some moderate degree of inflammation noted in the surface periwound area. LABORATORY DATA: As described above and the culture. ASSESSMENT: Suspected osteomyelitis involving the right foot. We will continue parenteral therapy. Vancomycin with dialysis is a reasonable option. In the interim, we will likely continue that, sounds like will be a postoperative period of 1 week to remove any infected bone, which likely be the extent of the fifth metatarsal. We will monitor expectantly. <ELECTRONICALLY SIGNED> By: David Zabala MD 07/23/19 1555 1446 1514Jodarshan Zabala MD /nt
== END ==
LOC: M.WC 01:40
DX: E11.621 Type 2 diabetes mellitus with foot ulcer (principal); L97.412 Non-pressure chronic ulcer of right heel and midfoot with fat layer exposed; L97.512 Non-pressure chronic ulcer of other part of right foot with fat layer exposed; L84 Corns and callosities; E11.42 Type 2 diabetes mellitus with diabetic polyneuropathy; E11.69 Type 2 diabetes mellitus with other specified complication; M86.8X7 Other osteomyelitis, ankle and foot; E11.22 Type 2 diabetes mellitus with diabetic chronic kidney disease; N18.6 End stage renal disease; I50.9 Heart failure, unspecified; Z99.2 Dependence on renal dialysis; Z86.73 Personal history of transient ischemic attack (TIA), and cerebral infarction without residual deficits

== ENCOUNTER → 2019-07-24 | Outpatient (CLI) | payer MEDICARE, OTHER ==
[~2019-07-24] MED LIST changes: +HYDROCODON-ACE1 EAC7 PO
== END ==
LOC: M.LAB 11:51
PROVIDERS: ATTEND Podiatrist Foot & Ankle Surgery
DX: Z01.818 Encounter for other preprocedural examination (principal); Z11.59 Encounter for screening for other viral diseases

== ENCOUNTER 2019-07-30 06:26 | Inpatient (IN) | payer MEDICARE, OTHER ==
[~2019-07-30] VITALS: Ht 180.3 cm; Wt 82.1 kg
--- NOTE | ~2019-07-30 | CON ---
[address] [address] CONSULTATION Name: ARTEM MANCILLA Room: [address] IN .R.#: [id number] Admission: 07/30/19 Attend Phys: Vincent Greco MD Discharge: Date of : 59 Report #: [id number] THIS REPORT FOR: //name// cc: Pippa Rothman MD, Allison Louise MD ~ THIS REPORT FOR: //name// CC: Pippa Greco DATE OF SERVICE: 07/31/2019 NEPHROLOGY CONSULTATION CONSULTING PHYSICIAN: Dr. Ruano and Dr. Greco. REASON FOR NEPHROLOGY CONSULTATION: ESRD, for maintenance hemodialysis. REASON FOR ADMISSION: Nonhealing foot wound. HISTORY OF PRESENT ILLNESS: This is a 64-year-old male with past medical history of end-stage renal disease, on hemodialysis every Sunday, and Sunday; diabetic foot ulcer and osteomyelitis and history of right fifth and partial fourth ray resection. He has been on antibiotics for MRSA infection, vancomycin with dialysis. He was admitted yesterday by Podiatry for resection of fifth metatarsal head of right foot as well as fourth metatarsal. He underwent metatarsectomy of right fifth metatarsal and right distal fourth metatarsal resection as well as a skin flap placement with pedicle, right foot. We were consulted for dialysis and he was seen just before dialysis today. He is saying that his pain is starting to come back. He goes for dialysis to [facility] under the care of Dr. Begum. ALLERGIES: No known drug allergies. REVIEW OF SYSTEMS: As mentioned in history of present illness, otherwise 10-point review of systems are negative. HOME MEDICATIONS: Include bumetanide, gabapentin, levothyroxine, ____, simvastatin, sevelamer, clopidogrel, aspirin, folic acid. PAST MEDICAL AND SURGICAL HISTORY: Includes ESRD, on hemodialysis every Sunday, and Sunday; diabetes, on insulin, neuropathy, chronic diastolic congestive heart failure, ejection fraction of 55% in 2019; aortic and mitral regurgitation, pacemaker, peripheral arterial disease, hypothyroidism [place] [address] CONSULTATION Name: LAURENTARTEM G Room: [address] IN [facility]#: [id number] Admission: 07/30/19 Attend Phys: Vincent Greco MD Discharge: Date of : 59 Report #: [id number] FAMILY HISTORY: Reviewed, not pertinent. SOCIAL HISTORY: Does not smoke or drink alcohol or use illicit drugs. PHYSICAL EXAMINATION: VITAL SIGNS: Blood pressure is 144/60, temperature 36.9, pulse rate is 61, respiratory rate is 20, his pulse ox was normal. He is on no oxygen. GENERAL: He is awake, alert, oriented x 3. HEAD AND EYES: Atraumatic, normocephalic and normal conjunctivae. EARS, NOSE, AND THROAT: Normal ears and nose. Mucous membranes are moist. NECK: No JVD. CHEST: Bilateral clear to auscultation. No crackles or wheezing. CARDIOVASCULAR: S1, S2 normal. No murmur. ABDOMEN: Soft, nondistended, nontender. Bowel sounds are present. EXTREMITIES: Lower extremities, there is no lower extremity edema. Right foot is wrapped. NEUROLOGICAL FUNCTION: Grossly intact. PSYCHIATRIC: Mood and affect seem to be normal. DIALYSIS ACCESS: Left radiocephalic AV fistula with good bruit and thrill. LABORATORY DATA: WBC 7.2, hemoglobin is 10.0, phosphorus was 6.0, sodium was 138, potassium was 3.8. Other labs are reviewed. IMAGING: Foot x-ray was reviewed. ASSESSMENT: 1. End-stage renal disease, on hemodialysis every Sunday, and Sunday. 2. Anemia of chronic kidney disease. 3. History of hypertension. 4. History of diabetes with neuropathy, nephropathy and vasculopathy. 5. History of a nonhealing infected right foot diabetic wound, status post fifth metatarsectomy and fourth distal metatarsal resection with skin flap. This was on 07/30/2019, on antibiotics as per primary team. History of methicillin-resistant Staphylococcus aureus infection. Infectious Disease is following. 7. Secondary hyperparathyroidism and hyperphosphatemia. PLAN: 1. The patient seen just before dialysis. 2. Hemoglobin 10.0. We will give him erythropoietin for anemia. 3. Phosphorus is 6.0. We will continue his sevelamer. 4. He should be on a renal diet. 5. [place] [address] CONSULTATION Name: MORENAIldaARTEM G Room: [address] IN [facility]#: [id number] Admission: 07/30/19 Attend Phys: Vincent Greco MD Discharge: Date of : 59 Report #: [id number] Thank you for this consultation. We will continue to follow with you and discussed with the patient and dialysis nurse. By: 0936 1025Aadelaida Coley MD /vinny
[~2019-07-30 06:26] MED LIST changes: -HYDROCODON-ACE1 EAC7 PO
[2019-07-30 13:23] LABS: CALCIUM 7.6 mg/dL (8.5-10.1); CREATININE 6.4 mg/dL (0.6-1.3); POTASSIUM 4.2 mmol/L (3.5-5.1)
--- NOTE | 2019-07-30 14:14 | EKG ---
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: ALISTAIR : 1955 Requested By: Neno Guerrero Order Number: [id number] Capri MD: Xu Cornelius Measurements Intervals [place] Rate: 62 P: 1 TN: 185 QRS: -75 QRSD: 175 T: 99 QT: 522 QTc: 531 Interpretive Statements Atrial-ventricular dual-paced complexes No further analysis attempted due to paced rhythm Compared to ECG 11/19/2018 11:22:14 No significant changes Electronically Signed On 07-30-2019 14:12:33 CDT by Xu Cornelius [email or web address] <ELECTRONICALLY SIGNED> By: Xu Cornelius MD, [facility] 07/30/19 1412 1406 1406 Xu Cornelius MD, [facility] /EPI
[2019-07-30 18:27] VITALS: BP 150/80
[2019-07-30 19:48] LABS: ABSOLUTE BASOPHILS 0.1 thou/uL (0.0-0.2); ABSOLUTE EOSINOPHILS 0.1 thou/uL (0.0-0.7); ABSOLUTE LYMPHOCYTES 1.5 thou/uL (0.8-5.3); ABSOLUTE MONOCYTES 0.4 thou/uL (0.0-1.2); HEMATOCRIT 28.9 % (42.0-52.0); HEMOGLOBIN 10.4 gm/dL (14.0-18.0); LYMPHOCYTES 21.4 %; MCH 33.3 pg (26.0-34.0); MCV 92.6 fL (80.0-100.0); MPV 7.6 fl. (7.2-11.1); NUCLEATED RBCS 0 /100WBC; PLATELET COUNT* 306 thou/uL (150-400); POLYS 69.6 %; RBC 3.12 mil/uL (4.50-6.00); RDW-CV 13.9 % (10.5-14.5); WBC 7.2 thou/uL (4.0-11.0)
[2019-07-30 21:00] VITALS: BP 137/61
[2019-07-31 04:09] LABS: CALCIUM 7.2 mg/dL (8.5-10.1); CREATININE 6.9 mg/dL (0.6-1.3); MAGNESIUM 1.9 mg/dL (1.8-2.4); POTASSIUM 3.8 mmol/L (3.5-5.1)
[2019-07-31 04:18] LABS: HEMATOCRIT 28.9 % (42.0-52.0)
--- NOTE | 2019-07-31 06:57 | NUR ---
PATIENT HAS SLEPT WELL THROUGHOUT THE NIGHT. VSS ON RA AND CAPNO. NO C/O PAIN. MEDICATIONS GIVEN ORDERED AND CHARTED. FISTULA IN LEFT ARM HAS GOOD THRILL AND BRUIT. IV IN RIGHT FOREARM-LR @ 40ML/HR. DRESSING TO RIGHT FOOT IS C/D/I AND ELEVATED. PATIENT INSTRUCTED TO USE CALL LIGHT WHEN NEEDING ASSISTANCE. HOURLY ROUNDS MADE. WILL CONTINUE WITH PLAN OF CARE AND NURSING TO MONITOR.
[2019-07-31 07:25] VITALS: BP 144/60
--- NOTE | 2019-07-31 09:58 | NUR ---
PT OFF UNIT FOR DIALYSIS. WILL CONTINUE TO MONITOR.
[2019-07-31 13:00] VITALS: BP 121/53
--- NOTE | 2019-07-31 15:00 | NUR ---
CM SPOKE WITH PT. HE WAS ALERT AND ORIENTED. HE SAID HE LIVES WITH HIS SON,CHRISTOPHER. HE IS INDEPENDENT. HAS A CANE,02 ,BATH SEAT,WALKER AND KNEE SCOOTER. HIS CURRENT WITH [facility] FOR DRESSING CHANGES. HE GOS TO HEMO DIALYSIS AT [facility] T[facility]TH-SAT AT 5 AM. HE DRIVES HIMSELF. HE IS HOPING HE CAN CONTINUE TO JUST NEED IV VANC WITH HIS DIALYSIS LIKE HE IS DOING NOW. CM WILL FOLLOW.
[2019-07-31 16:12] VITALS: BP 138/56
--- NOTE | 2019-07-31 16:44 | NUR ---
PT RETURN FROM IR AND WILL REMAIN FLAT ON BACK FOR SEVERAL HOURS.
[2019-07-31 17:13] VITALS: BP 116/51
--- NOTE | 2019-07-31 17:15 | NUR ---
PT REMAINED ALERT AND ORIENTED. PT RESTING IN BED,. PT HAD DIALYSIS TODAY. PT C/O PAIN, MEDS GIVEN ORDERED. FLUIDS RUNNING. ACCU CHECKS COMPLETED. FALL RISK PRECAUTIONS IN PLACE. HOURLY ROUNDING COMPLETED. WILL CONTINUE TO MONITOR.
[2019-07-31 19:45] VITALS: BP 116/53
[2019-08-01 00:04] VITALS: BP 135/58
--- NOTE | 2019-08-01 04:30 | NUR ---
PATIENT HAS REMAINED ALERT AND ORIENTED X 4 THROUGHOUT THE SHIFT AND RESTING QUIETLY ON HOURLY ROUNDS. MEDICATED X 1 WITH GOOD EFFECT FOR RIGHT FOOT PAIN. DRESSING RIGHT FOOT CLEAN AND DRY. DRESSING WAS CHANGED BY DR. BROWNING AT SHIFT CHANGE. VITAL SIGNS STABLE. PT EVAL ORDERED. CONTINUE TO MONITOR.
[2019-08-01 04:58] VITALS: BP 133/59
[2019-08-01 09:10] VITALS: BP 122/67
[2019-08-01 15:42] VITALS: BP 119/69
--- NOTE | 2019-08-01 16:00 | NUR ---
PT.IS CURRENT WITH NURSING WITH [facility]. [phone] AND [phone].
--- NOTE | 2019-08-01 19:00 | NUR ---
PATIENT PLESANT AND COOPERATIVE W/ ASSESS AND CARES THIS SHIFT. DR BROWNING IN TO SEE PATIENT FOR RT FT DRSG CHANGE THIS PM. SEE MAR FOR PAIN RELIEF. CALL LIGHT IN REACH. PATIENT RESTING IN BED W/ RLE ELEVATED ON PILLOW. HRLY ROUNDS DONE. ISO PRECAUTIONS MAINTAINED. ~TJRN
[2019-08-01 20:00] VITALS: BP 132/53
--- NOTE | 2019-08-01 21:31 | NUR ---
ASSUMED CARE AT 1930. PATIENT RESTING IN BED. RT LEG ELEVATED WITH HEEL OFFLOADED. DRESSING C/D/I. MOVES SELF IN BED. DRINKS FLUIDS WITHOUT DIFF. SL TO RTFA INTACT. HOURLY ROUNDS CONTINUE. CALL LITE IN REACH.
[2019-08-02 05:03] LABS: ABSOLUTE BASOPHILS 0.1 thou/uL (0.0-0.2); ABSOLUTE EOSINOPHILS 0.1 thou/uL (0.0-0.7); ABSOLUTE LYMPHOCYTES 1.3 thou/uL (0.8-5.3); ABSOLUTE MONOCYTES 0.5 thou/uL (0.0-1.2); EOSINOPHILS 1.8 %; HEMOGLOBIN 10.3 gm/dL (14.0-18.0); LYMPHOCYTES 18.8 %; MCH 32.8 pg (26.0-34.0); MCHC 35.4 g/dL (28.0-37.0); MCV 92.8 fL (80.0-100.0); MONOCYTES 6.8 %; MPV 7.5 fl. (7.2-11.1); NUCLEATED RBCS 0 /100WBC; PLATELET COUNT* 301 thou/uL (150-400); POLYS 71.6 %; RBC 3.13 mil/uL (4.50-6.00); RDW-CV 14.1 % (10.5-14.5)
[2019-08-02 05:07] LABS: CREATININE 6.8 mg/dL (0.6-1.3); POTASSIUM 5.1 mmol/L (3.5-5.1)
--- NOTE | 2019-08-02 05:33 | NUR ---
SLEPT MOST OF THE NIGHT. TURNS SELF IN BED. RT LEG UP ON PILLOW. HAS NOT VOIDED THUS FAR, ON DIALYSIS. NO C/O PAIN. HOURLY ROUNDS CONTINUE. CALL LITE IN REACH.
[2019-08-02 08:00] VITALS: BP 151/56
[2019-08-02 16:00] VITALS: BP 156/62
--- NOTE | 2019-08-02 16:08 | NUR ---
PT IS IN [employer] PLEASANT C/O R FOOT PAIN DRESSING DRY AND INTACT CAP REFILL <3 SECONDS PT HAD DIALYSIS REMOVED 3 L TOLERATED WELL RESTING IN BED
[2019-08-02 19:50] VITALS: BP 143/51
--- NOTE | 2019-08-03 05:12 | NUR ---
PT CARE ASSUMED AT 1930. SAT MAINTAINED IN RA. C/O PAIN, MEDICATION GIVEN PER EMAR. DENIES SOB. DRESSING C/D/I. CALL LIGHT WITHIN REACH AND BED IN LOW POSITION. HOURLY ROUNDING DONE FOR PT SAFETY.
[2019-08-03 08:00] VITALS: BP 125/58
[2019-08-03 16:00] VITALS: BP 112/55
--- NOTE | 2019-08-03 16:59 | NUR ---
PATIENT ALERT AND ORIENTED X 4. VITAL SIGNS STABLE ON ROOM AIR. NON-WEIGHT BEARING STATUS TO RIGHT LOWER EXTREMITY MAINTAINED. MRSA ISOLATION MAINTAINED. IV PATENT AND SALINE LOCKED. DENIES NAUSEA. PAIN BEING MANAGED WITH PO MEDICATION. DRESSING TO RIGHT FOOT CHANGED BY DR. BROWNING TODAY. PICTURES TAKEN. FAMILY NOT CALLED TODAY, PER PATIENT REQUEST. FALL PRECAUTIONS IN PLACE AND BED ALARM ON. HOURLY ROUNDS MAINTAINED THORUGHOUT THE SHIFT. CALL LIGHT WITHIN REACH. NURSING WILL CONTINUE TO MONITOR.
[2019-08-03 20:00] VITALS: BP 140/61
--- NOTE | 2019-08-04 05:10 | NUR ---
PT A&O, VSS ON RA. MEDS GIVEN ORDERED. DRESSING TO RT FOOT C/D/I. RLE MAINTAINED. NO C/O PAIN. PT SLEEPING QUIETLY THROUGH THE NIGHT. CALL LIGHT WITHIN REACH. NO OTHER CONCERNS AT THIS TIME. WILL CONTINUE TO MONITOR.
[2019-08-04 07:50] VITALS: BP 145/64
[2019-08-04] MEDS ORDERED: HYDROCODON-ACE1 EAC7 PO (07:57)
--- NOTE | 2019-08-04 10:30 | NUR ---
PT A&OX4 VSS. PT A&OX4 VSS. DRESSING TO R FOOT C/D/I. PT MAY DC TODAY ONCE HOPITALIST PLACES DC TO CHART. PT REMAINS ON PRECAUTIONS FOR MRSA OF THE WOUND. PT IS DIALYSIS PT ON //SAT. PT IS TO BE NWB TO RLE PER PT. PT HAS DIALYSIS FISTULA TO [facility]. IV TO RFA DC'D THIS AM IN ANTICIPTION OF DC TO HOME. PT IS ACCUCHECK, INSULIN ORDERED AND GIVEN WHEN INDICATED. PT USES CALL LIGHT TO MAKE NEEDS KNOWN. NO C/O PAIN AT THIS TIME. PT RESTS IN ROOM WITH NATO LIGHT IN REACH. WILL CONTINUE TO MONITOR.
[2019-08-04 11:30] VITALS: BP 145/64
--- NOTE | 2019-08-04 11:30 | NUR ---
FAXED ORDERS FOR IV VANC,LABS,FOLLOW UP APPT. AND DIALYSIS FLOW SHEET TO [facility] AND THAT PT. WAS DISCHARGING TODAY. NEEDS HOME HEALTH FOR NURSING AND P.T. HE WANTED TO CONTINUE WITH [facility]. NOTIFIED THEM (KAYCEE) AND FAXED DISCHARGE ORDERS TO [phone].ALONG WITH H&P,OP REPORT AND FACE TO FACE FORM .
[2019-08-04 12:00] VITALS: BP 145/64
--- NOTE | 2019-08-04 12:20 | NUR ---
PT A&OX4 VSS. PT DRESSED INDEPENDENTLY. PT WALKED DOWN [place] WITH CANE, DISREGARDING WB STATUS FOR R FOOT. PT STATES HE IS "PISSED" AND DOES NOT HAVE TIME TO WAIT FOR HIS DC ORDERS. PT STATES HIS RIDE IS WAITING. PT WAS PROVIDED RX FOR PAIN MEDICATION. PT LEFT UNIT WITH ALL PERSONAL BELONGINGS. 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
--- NOTE | 2019-08-04 16:08 | PATH ---
[facility] [address] [place] [address] PATHOLOGY RPT PROCEDURE Name: ARTEM MANCILLA Room: [address] IN M.R.#: [id number] Admission: 07/30/19 Date of : 59 Discharge: 08/04/19 Report #: [id number] Path Case #: [id number] LCA Accession Number: [id number] . 01 Material submitted: . PART A: foot - 5TH METATARSAL RIGHT FOOT. Modifiers: right, fifth PART B: foot - 4TH METATARSAL RIGHT FOOT PARTIAL. Modifiers: right, fourth . 01 Clinical history: . Osteomyelitis of fifth metatarsal, right . 02 Diagnosis: A. Fifth metatarsal right foot: - Benign osteocartilaginous segment with osteomyelitis near flat end (black inked) and opposite, (convex end) free of involvement. . B. Fourth metatarsal partial right foot: - Benign bone segment with acutely inflamed fibrotic soft tissues at one end in association with adjacent osteomyelitis, with opposite (black inked transection) end free of involvment. (RUDDY/db; 08/04/2019) LBQ 08/04/2019 1509 Local . 02 Electronically signed: . Kem Moijca MD, Pathologist NPI- [id number] . 01 Gross description: . A. The specimen is received fresh, and placed into formalin after verification of testing, labeled "Artem Coale, fifth metatarsal right foot". Received is a metatarsal measuring 7.5 x 2.0 x 1.6 cm in greatest dimensions. One margin is smooth and convex in appearance, consistent with disarticulation. The opposite margin is smooth and predominately flattened in appearance, also consistent with disarticulation, and is inked black. A full-thickness longitudinal cross-section is submitted in cassettes A1 through A3, following decalcification. . B. The specimen is received fresh, and placed into formalin after verification of testing, labeled "Artem Lepee, fourth metatarsal partial right foot". Received is a segment of bone measuring 2.6 x 1.3 x 1.2 cm in greatest dimensions. One margin is covered in overlying soft tissue and the opposite margin is blunt in appearance, consistent with transection. The transected margin is inked black. A full-thickness cross-section is submitted in cassette B1, following decal. (CAA; 08/01/2019) QA/[facility] 08/01/2019 1044 Local . 02 Pathologist provided ICD-10: [place] [address] PATHOLOGY RPT PROCEDURE Name: ARTEM MANCILLA Room: [facility]- DIS IN .R.#: [id number] Admission: 07/30/19 Date of : 59 Discharge: 08/04/19 Report #: [id number] Path Case #: [id number] . 02 CPT . 815238, [id number], [id number], [id number] Specimen Comment: A courtesy copy of this report has been sent to [phone] Specimen Comment: [id number], Specimen Comment: Report sent to ,DR BAILEY / DR WOLFE Performed at: 01 [facility] [place] [address], [place] [id number] MD Elliot Lloyd MD Phone: [phone] Performed at: 02 [facility] [address], [place], [place] [id number] MD Kem Mojica MD Phone: [phone]
--- NOTE | 2019-08-06 12:55 | OP ---
[address] [address] OPERATIVE REPORT Name: ARTEM MANCILLA Room: [address] IN M.R.#: [id number] Admission: 07/30/19 Attend Phys: Vincent Greco MD Discharge: 08/04/19 Date of : 59 Report #: [id number] THIS REPORT FOR: //name// cc: Pippa Rothman MD, Allison Louise MD ~ THIS REPORT FOR: //name// CC: Pippa Ruano DATE OF SERVICE: 07/30/2019 SURGEON: Jasson Casper DPM PREOPERATIVE DIAGNOSIS: Osteomyelitis, right distal fourth metatarsal and right proximal fifth metatarsal with nonhealing ulcerations. POSTOPERATIVE DIAGNOSIS: Osteomyelitis, right distal fourth metatarsal and right proximal fifth metatarsal with nonhealing ulcerations. PROCEDURES: 1. Metatarsectomy right fifth metatarsal (total metatarsectomy). 2. Resection right distal fourth metatarsal. 3. Incision and drainage, right foot. 4. Skin flap with pedicle, right foot. ANESTHESIA: MAC. INJECTABLES: 26 mL of 0.5% Marcaine plain. SPECIMENS: Right distal fourth and the entire fifth metatarsals. CULTURES: 1. Bone, right proximal fifth metatarsal, aerobic/anaerobic. 2. Soft tissue, right foot wound, aerobic/anaerobic. SUTURES: 3-0 nylon. ESTIMATED BLOOD LOSS: Roughly 50 mL. COMPLICATIONS: None. DESCRIPTION OF PROCEDURE: The patient was brought to the OR and placed on the table supine with induction of MAC anesthesia. A well-padded right ankle pneumatic tourniquet was placed and a local anesthetic block was given to the [place] [id number] OPERATIVE REPORT Name: ARTEM MANCILLA Room: [address]#: [id number] Admission: 07/30/19 Attend Phys: Vincent Greco MD Discharge: 08/04/19 Date of : 59 Report #: [id number] foot. The foot was prepped and draped aseptically. After exsanguination and inflation of the tourniquet, #10 blade was used to create a circumferential incision around the wound overlying the proximal fifth metatarsal base with a linear incision extending along the lateral aspect of the fifth metatarsal. The incision curved distally to the distal fourth metatarsal region. Electrocautery was utilized for hemostasis and sharp dissection was carried down to the fifth metatarsal, which was disarticulated from the cuboid and removed from the surgical wound. The bone underlying the ulceration was discolored and somewhat soft, consistent with osteomyelitis. A small portion of that bone was sent for bone culture and the remaining fifth metatarsal sent for surgical pathology. The distal fourth metatarsal had previously been debrided, however, there was a piece of cartilage and the soft tissue, which was a remnant from prior debridement. The distal fourth metatarsal stump was yellow/brown discolored and I transected the distal one-third of the fourth metatarsal with a sagittal saw and sent that portion for surgical pathology. The wound was debrided, cauterized and flushed with sterile saline and bacitracin irrigant. The plantar lateral skin flap was mobilized dorsolaterally and sutured with 3-0 nylon in simple interrupted fashion with complete closure of the wound. The foot was cleansed and dried and a sterile compressive bandage with Betadine-soaked Adaptic, fluffs, ABD, Kerlix, Samuel bandage were applied. The tourniquet was deflated and the patient left the OR with no pain or complications noted. <ELECTRONICALLY SIGNED> By: Jasson Casper DPM 08/06/19 1255 49 2104Dday Casper DPM /nt
--- NOTE | 2019-08-06 12:55 | CON ---
[address] [address] CONSULTATION Name: MORENAIldaARTEM G Room: [address] IN .R.#: [id number] Admission: 07/30/19 Attend Phys: Vincent Greco MD Discharge: 08/04/19 Date of : 59 Report #: [id number] THIS REPORT FOR: //name// cc: Pippa Rothman MD, Allison Louise MD ~ THIS REPORT FOR: //name// CC: Pippa Spaulding T[place]ne Vincent Greco DATE OF SERVICE: 07/31/2019 CHIEF COMPLAINT: Postoperative day #1 for right total fifth ray resection and resection of distal fourth metatarsal for osteomyelitis and nonhealing ulceration. HISTORY OF PRESENT ILLNESS: His pain is a 7/10, controlled fairly well on [place]. He dialyzed today. Surgical cultures pending with Gram-positive cocci, on Gram stain. He has been afebrile, good appetite. He has remained nonweightbearing with his leg elevated today. LABORATORY DATA: WBC 7.2, RBC 3.12, hemoglobin 10.0, hematocrit 28.9, platelets 306. BUN 57, creatinine 6.9, glucose 74. PHYSICAL EXAMINATION: VITAL SIGNS: Temperature 97.8, blood pressure 116/51. SKIN: The incision is well coapted with no inflammation, pallor or cyanosis. No dehiscence/fluctuance/crepitation. EXTREMITIES: Foot is warm with good color and temperature. Negative Homans' or Nicole sign either extremity, no right popliteal tenderness. IMPRESSION: Status post ray resections with osteomyelitis, diabetes mellitus, peripheral arterial disease; end-stage renal disease, on dialysis. PLAN: The incision was cleansed and redressed with ABDs, Kerlix and Samuel. He is to remain strictly nonweightbearing and elevate foot. Awaiting surgical cultures, he remains on parenteral vancomycin post dialysis. <ELECTRONICALLY SIGNED> By: Jasson Casper DPM 08/06/19 1255 1913 2122Dday Casper DPM /nt
--- NOTE | 2019-08-06 12:55 | CON ---
[address] [address] CONSULTATION Name: LAURENTARTEM Contreras Room: [address] IN M.R.#: [id number] Admission: 07/30/19 Attend Phys: Vincent Greco MD Discharge: 08/04/19 Date of : 59 Report #: [id number] THIS REPORT FOR: //name// cc: Pippa Rothman MD, Allison Louise MD ~ THIS REPORT FOR: //name// CC: Pippa Pughmariola Casper Vincent Greco DATE OF SERVICE: 08/03/2019 CHIEF COMPLAINT: Status post resection right fifth total and fourth partial metatarsals for osteomyelitis with primary closure. Surgical pathology is pending. Surgical cultures growing oxacillin-resistant coagulase-negative Staphylococcus. He is on parenteral vancomycin post-dialysis. He feels well, improved appetite, decreased foot pain. He has remained nonweightbearing during the hospitalization, working with physical therapy. LABORATORY DATA: WBC 7.0, RBC 3.13, hemoglobin 10.3, hematocrit 29.0, platelets 301. BUN 49, creatinine 6.8, glucose 104. PHYSICAL EXAMINATION: The incision is well approximated with minimal inflammation, substantially decreased since surgery. No dehiscence, no pallor/cyanosis. No underlying fluctuance or crepitation. The foot is warm with no signs of acute vascular embarrassment. No open lesions noted to the left lower extremity. IMPRESSION: Osteomyelitis, status post metatarsal resections; type 2 diabetes mellitus; peripheral arterial disease; end-stage renal disease, on dialysis. PLAN: Incision was cleansed, redressed with ABD, Kerlix, and Samuel. The patient to remain strictly nonweightbearing to the extremity. I will follow up with him at [facility] in roughly 10 days. <ELECTRONICALLY SIGNED> By: Jasson Casper DPM 08/06/19 1255 1227 1339Dajohnny Casper DPM /nt
== END 2019-08-04 12:10 | disposition home health service (06) | DRG 617 ==
LOC: M.PRE 06:26 → M.ORTHSURG 12:45 → M.TBA 12:45 → M.ORTHSURG 18:07
PROVIDERS: Anesthesiology; Internal Medicine; ADMIT Internal Medicine
DX: E11.69 Type 2 diabetes mellitus with other specified complication (principal); I50.32 Chronic diastolic (congestive) heart failure; I13.0 Hypertensive heart and chronic kidney disease with heart failure and stage 1 through stage 4 chronic kidney disease, or unspecified chronic kidney disease; M86.8X7 Other osteomyelitis, ankle and foot; N18.6 End stage renal disease; N25.81 Secondary hyperparathyroidism of renal origin; Z99.2 Dependence on renal dialysis; E11.40 Type 2 diabetes mellitus with diabetic neuropathy, unspecified; E11.51 Type 2 diabetes mellitus with diabetic peripheral angiopathy without gangrene; E11.22 Type 2 diabetes mellitus with diabetic chronic kidney disease; D63.1 Anemia in chronic kidney disease; E11.621 Type 2 diabetes mellitus with foot ulcer; E03.9 Hypothyroidism, unspecified; M60.871 Other myositis, right ankle and foot; B95.62 Methicillin resistant Staphylococcus aureus infection as the cause of diseases classified elsewhere; I08.0 Rheumatic disorders of both mitral and aortic valves; Z79.01 Long term (current) use of anticoagulants; Z79.82 Long term (current) use of aspirin; Z79.899 Other long term (current) drug therapy; Z79.4 Long term (current) use of insulin

== ENCOUNTER → 2019-08-13 | Outpatient (CLI) | payer MEDICARE, OTHER ==
[~2019-08-13] MED LIST changes: +HYDROCODON-ACE1 EAC7 PO
--- NOTE | 2019-08-15 07:51 | CON ---
[address] [address] CONSULTATION Name: ARTEM MANCILLA Room: [facility].#: [id number] Admission: 08/13/19 Attend Phys: Jasson Casper DPM Discharge: Date of : 59 Report #: [id number] THIS REPORT FOR: //name// cc: Pippa Rothman MD, Allison Louise MD ~ THIS REPORT FOR: //name// CC: Pippa Casper DATE OF SERVICE: 08/13/2019 INFECTIOUS DISEASE CONSULTATION ATTENDING PHYSICIAN: Jasson Casper DPM HISTORY OF PRESENT ILLNESS: The patient returns today for follow up at the [facility] [place], undergoing treatment for osteomyelitis involving his right foot. He is status post resection of the fourth and fifth metatarsals. Generally, he has done well over the course of the last 2 weeks since his discharge from the hospital. He has completed that course of therapy with vancomycin. This is dosed on a hemodialysis schedule with 3 times weekly. He has generally been tolerating the procedure well. Review of the culture was noted to have oxacillin-resistant Staphylococcus epidermidis. Denies any systemic illness. Generally, he has been free of localizing pain or discomfort. Appetite has been generally good. ASSESSMENT AND PLAN: Osteomyelitis. We will continue the vancomycin for at least additional 2-4 weeks. Again, we will get that given with dialysis thrice weekly basis. He will be seen in 2 weeks in the [facility] by myself and Dr. Casper, next week as well. <ELECTRONICALLY SIGNED> By: David Zabala MD 08/15/19 0751 0826 [id number] Zabala MD /nt
== END ==
LOC: M.WC 08-06 14:00
PROVIDERS: ATTEND Podiatrist Foot & Ankle Surgery
DX: T81.89XA Other complications of procedures, not elsewhere classified, initial encounter (principal); E11.621 Type 2 diabetes mellitus with foot ulcer; L97.511 Non-pressure chronic ulcer of other part of right foot limited to breakdown of skin; L97.416 Non-pressure chronic ulcer of right heel and midfoot with bone involvement without evidence of necrosis; L97.521 Non-pressure chronic ulcer of other part of left foot limited to breakdown of skin; E11.42 Type 2 diabetes mellitus with diabetic polyneuropathy; E11.69 Type 2 diabetes mellitus with other specified complication; M86.8X7 Other osteomyelitis, ankle and foot; E11.22 Type 2 diabetes mellitus with diabetic chronic kidney disease; N18.6 End stage renal disease; I50.9 Heart failure, unspecified; Z99.2 Dependence on renal dialysis; Z86.73 Personal history of transient ischemic attack (TIA), and cerebral infarction without residual deficits; Y92.89 Other specified places as the place of occurrence of the external cause; Y83.8 Other surgical procedures as the cause of abnormal reaction of the patient, or of later complication, without mention of misadventure at the time of the procedure

== ENCOUNTER → 2019-08-20 | Outpatient (CLI) | payer MEDICARE, OTHER | LOC: M.WC 04:40 | PROVIDERS: ATTEND Podiatrist Foot & Ankle Surgery | DX: T87.89 Other complications of amputation stump (principal); E11.621 Type 2 diabetes mellitus with foot ulcer; L97.511 Non-pressure chronic ulcer of other part of right foot limited to breakdown of skin; L97.521 Non-pressure chronic ulcer of other part of left foot limited to breakdown of skin; E11.22 Type 2 diabetes mellitus with diabetic chronic kidney disease; E11.69 Type 2 diabetes mellitus with other specified complication; M86.8X7 Other osteomyelitis, ankle and foot; E11.51 Type 2 diabetes mellitus with diabetic peripheral angiopathy without gangrene; I50.9 Heart failure, unspecified; N18.6 End stage renal disease; Z99.2 Dependence on renal dialysis; Z86.73 Personal history of transient ischemic attack (TIA), and cerebral infarction without residual deficits; Y83.5 Amputation of limb(s) as the cause of abnormal reaction of the patient, or of later complication, without mention of misadventure at the time of the procedure ==

== ENCOUNTER → 2019-08-27 | Outpatient (CLI) | payer MEDICARE, OTHER ==
--- NOTE | 2019-09-02 07:53 | CON ---
[address] [address] CONSULTATION Name: ARTEM MANCILLA Room: [facility].#: [id number] Admission: 08/27/19 Attend Phys: Jasson Casper DPM Discharge: Date of : 59 Report #: [id number] THIS REPORT FOR: //name// cc: Pippa Rothman MD, Allison Louise MD ~ THIS REPORT FOR: //name// CC: Pippa Casper DATE OF SERVICE: 08/27/2019 INFECTIOUS DISEASE CONSULTATION ATTENDING PHYSICIAN: Jasson Casper DPM. HISTORY OF PRESENT ILLNESS: The patient presented for followup, 08/27/2019, for ongoing treatment right lateral foot osteomyelitis post osteectomy with ray amputation. He is postop roughly 4 weeks. He had received parenteral therapy over the interim with vancomycin with dialysis, still he has been doing fairly well. He is generally animated. Denies any significant localizing pain nor has he been systemically ill. No fever or chills. Appetite has been good. PHYSICAL EXAMINATION: EXTREMITIES: On examination, Dr. Casper did remove the sutures. There was a small amount of dehiscence on the distal part of the incision, apparently bled fairly well, and did undergo a silver nitrate treatment. ASSESSMENT AND PLAN: Chronic osteomyelitis. At this point, we would extend the antibiotics to complete the 6-week total course 2 additional weeks. We will see him back at that point. Continue offloading and wound care per Dr. Casper, optimize his nutritional status. <ELECTRONICALLY SIGNED> By: David Zabala MD 09/02/19 0753 1053 1119Jodarshan Zabala MD /nt
== END ==
LOC: M.WC 03:17
PROVIDERS: ATTEND Podiatrist Foot & Ankle Surgery
DX: T87.89 Other complications of amputation stump (principal); E11.621 Type 2 diabetes mellitus with foot ulcer; L97.511 Non-pressure chronic ulcer of other part of right foot limited to breakdown of skin; L97.521 Non-pressure chronic ulcer of other part of left foot limited to breakdown of skin; E11.51 Type 2 diabetes mellitus with diabetic peripheral angiopathy without gangrene; E11.42 Type 2 diabetes mellitus with diabetic polyneuropathy; E11.69 Type 2 diabetes mellitus with other specified complication; M86.8X7 Other osteomyelitis, ankle and foot; E11.22 Type 2 diabetes mellitus with diabetic chronic kidney disease; N18.6 End stage renal disease; Z99.2 Dependence on renal dialysis; I50.9 Heart failure, unspecified; Z86.73 Personal history of transient ischemic attack (TIA), and cerebral infarction without residual deficits; Y83.5 Amputation of limb(s) as the cause of abnormal reaction of the patient, or of later complication, without mention of misadventure at the time of the procedure

== ENCOUNTER → 2019-09-03 | Outpatient (CLI) | payer MEDICARE, OTHER | LOC: M.WC 03:26 | PROVIDERS: ATTEND Podiatrist Foot & Ankle Surgery | DX: T87.89 Other complications of amputation stump (principal); E11.621 Type 2 diabetes mellitus with foot ulcer; L97.511 Non-pressure chronic ulcer of other part of right foot limited to breakdown of skin; L97.521 Non-pressure chronic ulcer of other part of left foot limited to breakdown of skin; E11.22 Type 2 diabetes mellitus with diabetic chronic kidney disease; N18.6 End stage renal disease; E11.51 Type 2 diabetes mellitus with diabetic peripheral angiopathy without gangrene; E11.40 Type 2 diabetes mellitus with diabetic neuropathy, unspecified; I50.9 Heart failure, unspecified; Z86.73 Personal history of transient ischemic attack (TIA), and cerebral infarction without residual deficits; Z99.2 Dependence on renal dialysis; Y83.5 Amputation of limb(s) as the cause of abnormal reaction of the patient, or of later complication, without mention of misadventure at the time of the procedure ==

== ENCOUNTER → 2019-09-10 | Outpatient (CLI) | payer MEDICARE, OTHER ==
--- NOTE | 2019-09-11 11:34 | CON ---
[address] [address] CONSULTATION Name: ARTEM MANCILLA Room: [facility].#: [id number] Admission: 09/10/19 Attend Phys: Jasson Casper DPM Discharge: Date of : 59 Report #: [id number] THIS REPORT FOR: //name// cc: Pippa Rothman MD, Allison Louise MD ~ THIS REPORT FOR: //name// CC: Pippa Casper DATE OF SERVICE: 09/10/2019 INFECTIOUS DISEASE CONSULTATION ATTENDING PHYSICIAN: Jasson Casper DPM REASON FOR EVALUATION: He is here for chronic osteomyelitis involving his right foot post-osteectomy. HISTORY OF PRESENT ILLNESS: Chart reviewed, the patient examined. The patient returns to follow up with ongoing wound care issues related to lateral foot incisional dehiscence. Generally, the overall appearance is improved in terms of the inflammation. He does have less undermining. The depth is slightly less as well. There is no particular odor, no purulence. Dr. Casper did debride some nonviable tissue and had vigorous bleeding and asked him to do a culture. He had extended period of parenteral first treatment with vancomycin with dialysis over roughly 6 weeks post-surgery. He denies any localizing signs and symptoms or systemic illness in terms of fevers or chills. Appetite has generally been good. ASSESSMENT AND PLAN: Chronic osteomyelitis. At this point, would discontinue the antibiotics, go ahead and get a culture, await results, indeed there is colonization. Would consider some oral antibiotics at that point. Continue wound care as prescribed. There is some discussion about hyperbaric oxygen as well. We will see him back in 1 week. <ELECTRONICALLY SIGNED> By: David Zabala MD 09/11/19 1134 1052 1101Jodarshan Zabala MD /nt
== END ==
LOC: M.WC 05:02
PROVIDERS: ATTEND Podiatrist Foot & Ankle Surgery
DX: T87.81 Dehiscence of amputation stump (principal); E11.621 Type 2 diabetes mellitus with foot ulcer; L97.511 Non-pressure chronic ulcer of other part of right foot limited to breakdown of skin; L97.521 Non-pressure chronic ulcer of other part of left foot limited to breakdown of skin; E11.22 Type 2 diabetes mellitus with diabetic chronic kidney disease; N18.6 End stage renal disease; E11.51 Type 2 diabetes mellitus with diabetic peripheral angiopathy without gangrene; E11.40 Type 2 diabetes mellitus with diabetic neuropathy, unspecified; E11.69 Type 2 diabetes mellitus with other specified complication; M86.8X7 Other osteomyelitis, ankle and foot; I50.9 Heart failure, unspecified; Z86.73 Personal history of transient ischemic attack (TIA), and cerebral infarction without residual deficits; Z99.2 Dependence on renal dialysis; Y83.5 Amputation of limb(s) as the cause of abnormal reaction of the patient, or of later complication, without mention of misadventure at the time of the procedure

== ENCOUNTER → 2019-09-17 | Outpatient (CLI) | payer MEDICARE, OTHER | LOC: M.WC 03:36 | PROVIDERS: ATTEND Surgery | DX: E11.621 Type 2 diabetes mellitus with foot ulcer (principal); L97.512 Non-pressure chronic ulcer of other part of right foot with fat layer exposed; L97.521 Non-pressure chronic ulcer of other part of left foot limited to breakdown of skin; E11.69 Type 2 diabetes mellitus with other specified complication; M86.8X7 Other osteomyelitis, ankle and foot; E11.22 Type 2 diabetes mellitus with diabetic chronic kidney disease; N18.6 End stage renal disease; E11.42 Type 2 diabetes mellitus with diabetic polyneuropathy; I50.9 Heart failure, unspecified; F40.240 Claustrophobia; Z99.2 Dependence on renal dialysis; Z86.73 Personal history of transient ischemic attack (TIA), and cerebral infarction without residual deficits; Z79.4 Long term (current) use of insulin ==

== ENCOUNTER → 2019-09-22 | Outpatient (CLI) | payer MEDICARE, OTHER | LOC: M.WC 02:49 | DX: E11.621 Type 2 diabetes mellitus with foot ulcer (principal); L97.511 Non-pressure chronic ulcer of other part of right foot limited to breakdown of skin; L97.521 Non-pressure chronic ulcer of other part of left foot limited to breakdown of skin; E11.22 Type 2 diabetes mellitus with diabetic chronic kidney disease; N18.6 End stage renal disease; I50.9 Heart failure, unspecified; Z99.2 Dependence on renal dialysis; Z86.73 Personal history of transient ischemic attack (TIA), and cerebral infarction without residual deficits ==

== ENCOUNTER → 2019-09-24 | Outpatient (CLI) | payer MEDICARE, OTHER | LOC: M.WC 05:13 | PROVIDERS: ATTEND Podiatrist Foot & Ankle Surgery | DX: E11.621 Type 2 diabetes mellitus with foot ulcer (principal); L97.512 Non-pressure chronic ulcer of other part of right foot with fat layer exposed; L97.521 Non-pressure chronic ulcer of other part of left foot limited to breakdown of skin; E11.22 Type 2 diabetes mellitus with diabetic chronic kidney disease; N18.6 End stage renal disease; I50.9 Heart failure, unspecified; Z99.2 Dependence on renal dialysis; Z86.73 Personal history of transient ischemic attack (TIA), and cerebral infarction without residual deficits; Z79.4 Long term (current) use of insulin ==

== ENCOUNTER → 2019-09-25 | Outpatient (CLI) | payer MEDICARE, OTHER | LOC: M.WC 04:20 | PROVIDERS: ATTEND Family Medicine | DX: E11.621 Type 2 diabetes mellitus with foot ulcer (principal); L97.511 Non-pressure chronic ulcer of other part of right foot limited to breakdown of skin; L97.521 Non-pressure chronic ulcer of other part of left foot limited to breakdown of skin; E11.22 Type 2 diabetes mellitus with diabetic chronic kidney disease; N18.6 End stage renal disease; I50.9 Heart failure, unspecified; Z99.2 Dependence on renal dialysis; Z86.73 Personal history of transient ischemic attack (TIA), and cerebral infarction without residual deficits ==

== ENCOUNTER → 2019-09-26 | Outpatient (CLI) | payer MEDICARE, OTHER | LOC: M.WC 05:18 | PROVIDERS: ATTEND Family Medicine | DX: E11.621 Type 2 diabetes mellitus with foot ulcer (principal); L97.511 Non-pressure chronic ulcer of other part of right foot limited to breakdown of skin; L97.521 Non-pressure chronic ulcer of other part of left foot limited to breakdown of skin; E11.22 Type 2 diabetes mellitus with diabetic chronic kidney disease; I50.9 Heart failure, unspecified; N18.6 End stage renal disease; Z86.73 Personal history of transient ischemic attack (TIA), and cerebral infarction without residual deficits; Z99.2 Dependence on renal dialysis ==

== ENCOUNTER → 2019-09-29 | Outpatient (CLI) | payer MEDICARE, OTHER | LOC: M.WC 06:35 | PROVIDERS: ATTEND Surgery | DX: E11.621 Type 2 diabetes mellitus with foot ulcer (principal); L97.511 Non-pressure chronic ulcer of other part of right foot limited to breakdown of skin; L97.521 Non-pressure chronic ulcer of other part of left foot limited to breakdown of skin; E11.22 Type 2 diabetes mellitus with diabetic chronic kidney disease; N18.6 End stage renal disease; I50.9 Heart failure, unspecified; Z99.2 Dependence on renal dialysis; Z86.73 Personal history of transient ischemic attack (TIA), and cerebral infarction without residual deficits ==

== ENCOUNTER → 2019-10-01 | Outpatient (CLI) | payer MEDICARE, OTHER | LOC: M.WC 05:00 | PROVIDERS: ATTEND Surgery | DX: E11.621 Type 2 diabetes mellitus with foot ulcer (principal); L97.511 Non-pressure chronic ulcer of other part of right foot limited to breakdown of skin; L97.521 Non-pressure chronic ulcer of other part of left foot limited to breakdown of skin; L84 Corns and callosities; E11.22 Type 2 diabetes mellitus with diabetic chronic kidney disease; N18.6 End stage renal disease; I50.9 Heart failure, unspecified; E11.42 Type 2 diabetes mellitus with diabetic polyneuropathy; E11.69 Type 2 diabetes mellitus with other specified complication; M86.8X7 Other osteomyelitis, ankle and foot; Z86.73 Personal history of transient ischemic attack (TIA), and cerebral infarction without residual deficits; Z89.421 Acquired absence of other right toe(s); Z79.4 Long term (current) use of insulin; Z99.2 Dependence on renal dialysis ==

== ENCOUNTER → 2019-10-02 | Outpatient (CLI) | payer MEDICARE, OTHER | LOC: M.WC 03:58 | PROVIDERS: ATTEND Family Medicine | DX: E11.621 Type 2 diabetes mellitus with foot ulcer (principal); L97.511 Non-pressure chronic ulcer of other part of right foot limited to breakdown of skin; L97.521 Non-pressure chronic ulcer of other part of left foot limited to breakdown of skin; E11.22 Type 2 diabetes mellitus with diabetic chronic kidney disease; N18.6 End stage renal disease; I50.9 Heart failure, unspecified; Z99.2 Dependence on renal dialysis; Z86.73 Personal history of transient ischemic attack (TIA), and cerebral infarction without residual deficits ==

== ENCOUNTER → 2019-10-03 | Outpatient (CLI) | payer MEDICARE, OTHER | LOC: M.WC 03:48 | PROVIDERS: ATTEND Family Medicine | DX: E11.621 Type 2 diabetes mellitus with foot ulcer (principal); L97.511 Non-pressure chronic ulcer of other part of right foot limited to breakdown of skin; L97.521 Non-pressure chronic ulcer of other part of left foot limited to breakdown of skin; E11.22 Type 2 diabetes mellitus with diabetic chronic kidney disease; I50.9 Heart failure, unspecified; N18.6 End stage renal disease; Z86.73 Personal history of transient ischemic attack (TIA), and cerebral infarction without residual deficits; Z99.2 Dependence on renal dialysis ==

== ENCOUNTER → 2019-10-06 | Outpatient (CLI) | payer MEDICARE, OTHER | LOC: M.WC 01:01 | PROVIDERS: ATTEND Surgery | DX: E11.621 Type 2 diabetes mellitus with foot ulcer (principal); L97.511 Non-pressure chronic ulcer of other part of right foot limited to breakdown of skin; L97.521 Non-pressure chronic ulcer of other part of left foot limited to breakdown of skin; I50.9 Heart failure, unspecified; N18.6 End stage renal disease; Z99.2 Dependence on renal dialysis; Z86.73 Personal history of transient ischemic attack (TIA), and cerebral infarction without residual deficits ==

== ENCOUNTER → 2019-10-08 | Outpatient (CLI) | payer MEDICARE, OTHER | LOC: M.WC 04:54 | PROVIDERS: ATTEND Podiatrist Foot & Ankle Surgery | DX: E11.621 Type 2 diabetes mellitus with foot ulcer (principal); L97.512 Non-pressure chronic ulcer of other part of right foot with fat layer exposed; L97.521 Non-pressure chronic ulcer of other part of left foot limited to breakdown of skin; E11.22 Type 2 diabetes mellitus with diabetic chronic kidney disease; N18.6 End stage renal disease; I50.9 Heart failure, unspecified; Z99.2 Dependence on renal dialysis; Z86.73 Personal history of transient ischemic attack (TIA), and cerebral infarction without residual deficits ==

== ENCOUNTER → 2019-10-09 | Outpatient (CLI) | payer MEDICARE, OTHER | LOC: M.WC 03:59 | PROVIDERS: ATTEND Family Medicine | DX: E11.621 Type 2 diabetes mellitus with foot ulcer (principal); L97.511 Non-pressure chronic ulcer of other part of right foot limited to breakdown of skin; L97.521 Non-pressure chronic ulcer of other part of left foot limited to breakdown of skin; E11.22 Type 2 diabetes mellitus with diabetic chronic kidney disease; I13.2 Hypertensive heart and chronic kidney disease with heart failure and with stage 5 chronic kidney disease, or end stage renal disease; N18.6 End stage renal disease; I50.9 Heart failure, unspecified; Z99.2 Dependence on renal dialysis; Z86.73 Personal history of transient ischemic attack (TIA), and cerebral infarction without residual deficits ==

== ENCOUNTER → 2019-10-10 | Outpatient (CLI) | payer MEDICARE, OTHER | LOC: M.WC 01:21 | PROVIDERS: ATTEND Family Medicine | DX: E11.621 Type 2 diabetes mellitus with foot ulcer (principal); L97.511 Non-pressure chronic ulcer of other part of right foot limited to breakdown of skin; L97.521 Non-pressure chronic ulcer of other part of left foot limited to breakdown of skin; E11.22 Type 2 diabetes mellitus with diabetic chronic kidney disease; I50.9 Heart failure, unspecified; N18.6 End stage renal disease; Z99.2 Dependence on renal dialysis ==

== ENCOUNTER → 2019-10-13 | Outpatient (CLI) | payer MEDICARE, OTHER | LOC: M.WC 02:46 | PROVIDERS: ATTEND Surgery | DX: E11.621 Type 2 diabetes mellitus with foot ulcer (principal); L97.511 Non-pressure chronic ulcer of other part of right foot limited to breakdown of skin; L97.521 Non-pressure chronic ulcer of other part of left foot limited to breakdown of skin; E11.22 Type 2 diabetes mellitus with diabetic chronic kidney disease; I50.9 Heart failure, unspecified; N18.6 End stage renal disease; Z99.2 Dependence on renal dialysis; Z86.73 Personal history of transient ischemic attack (TIA), and cerebral infarction without residual deficits ==

== ENCOUNTER → 2019-10-14 | Outpatient (CLI) | payer MEDICARE, OTHER | LOC: M.WC 05:16 | PROVIDERS: ATTEND Emergency Medicine Undersea and Hyperbaric Medicine | DX: E11.621 Type 2 diabetes mellitus with foot ulcer (principal); L97.511 Non-pressure chronic ulcer of other part of right foot limited to breakdown of skin; L97.521 Non-pressure chronic ulcer of other part of left foot limited to breakdown of skin; E11.22 Type 2 diabetes mellitus with diabetic chronic kidney disease; I50.9 Heart failure, unspecified; N18.6 End stage renal disease; Z86.73 Personal history of transient ischemic attack (TIA), and cerebral infarction without residual deficits; Z99.2 Dependence on renal dialysis ==

== ENCOUNTER → 2019-10-15 | Outpatient (CLI) | payer MEDICARE, OTHER | LOC: M.WC 04:30 | PROVIDERS: ATTEND Surgery | DX: E11.621 Type 2 diabetes mellitus with foot ulcer (principal); L97.512 Non-pressure chronic ulcer of other part of right foot with fat layer exposed; L97.521 Non-pressure chronic ulcer of other part of left foot limited to breakdown of skin; E11.22 Type 2 diabetes mellitus with diabetic chronic kidney disease; I50.9 Heart failure, unspecified; N18.6 End stage renal disease; Z86.73 Personal history of transient ischemic attack (TIA), and cerebral infarction without residual deficits; Z99.2 Dependence on renal dialysis ==

== ENCOUNTER → 2019-10-17 | Outpatient (CLI) | payer MEDICARE, OTHER | LOC: M.WC 01:15 | PROVIDERS: ATTEND Family Medicine | DX: E11.621 Type 2 diabetes mellitus with foot ulcer (principal); L97.511 Non-pressure chronic ulcer of other part of right foot limited to breakdown of skin; L97.521 Non-pressure chronic ulcer of other part of left foot limited to breakdown of skin; E11.22 Type 2 diabetes mellitus with diabetic chronic kidney disease; I50.9 Heart failure, unspecified; N18.6 End stage renal disease; Z86.73 Personal history of transient ischemic attack (TIA), and cerebral infarction without residual deficits; Z99.2 Dependence on renal dialysis ==

== ENCOUNTER → 2019-10-20 | Outpatient (CLI) | payer MEDICARE, OTHER | LOC: M.WC 04:03 | PROVIDERS: ATTEND Surgery | DX: E11.621 Type 2 diabetes mellitus with foot ulcer (principal); L97.511 Non-pressure chronic ulcer of other part of right foot limited to breakdown of skin; L97.521 Non-pressure chronic ulcer of other part of left foot limited to breakdown of skin; E11.22 Type 2 diabetes mellitus with diabetic chronic kidney disease; N18.6 End stage renal disease; I50.9 Heart failure, unspecified; Z99.2 Dependence on renal dialysis; Z86.73 Personal history of transient ischemic attack (TIA), and cerebral infarction without residual deficits ==

== ENCOUNTER → 2019-10-21 | Outpatient (CLI) | payer MEDICARE, OTHER | LOC: M.WC 02:51 | PROVIDERS: ATTEND Emergency Medicine Undersea and Hyperbaric Medicine | DX: E11.621 Type 2 diabetes mellitus with foot ulcer (principal); L97.511 Non-pressure chronic ulcer of other part of right foot limited to breakdown of skin; L97.521 Non-pressure chronic ulcer of other part of left foot limited to breakdown of skin; E11.22 Type 2 diabetes mellitus with diabetic chronic kidney disease; N18.6 End stage renal disease; I50.9 Heart failure, unspecified; Z99.2 Dependence on renal dialysis; Z86.73 Personal history of transient ischemic attack (TIA), and cerebral infarction without residual deficits ==

== ENCOUNTER → 2019-10-22 | Outpatient (CLI) | payer MEDICARE, OTHER | LOC: M.WC 03:02 | PROVIDERS: ATTEND Surgery | DX: E11.621 Type 2 diabetes mellitus with foot ulcer (principal); L97.511 Non-pressure chronic ulcer of other part of right foot limited to breakdown of skin; L97.521 Non-pressure chronic ulcer of other part of left foot limited to breakdown of skin; E11.22 Type 2 diabetes mellitus with diabetic chronic kidney disease; N18.6 End stage renal disease; I50.9 Heart failure, unspecified; E11.40 Type 2 diabetes mellitus with diabetic neuropathy, unspecified; Z99.2 Dependence on renal dialysis; Z86.73 Personal history of transient ischemic attack (TIA), and cerebral infarction without residual deficits; Z79.4 Long term (current) use of insulin ==

== ENCOUNTER → 2019-10-23 | Outpatient (CLI) | payer MEDICARE, OTHER | LOC: M.WC 03:52 | PROVIDERS: ATTEND Family Medicine | DX: E11.621 Type 2 diabetes mellitus with foot ulcer (principal); L97.511 Non-pressure chronic ulcer of other part of right foot limited to breakdown of skin; L97.521 Non-pressure chronic ulcer of other part of left foot limited to breakdown of skin; E11.22 Type 2 diabetes mellitus with diabetic chronic kidney disease; N18.6 End stage renal disease; I50.9 Heart failure, unspecified; Z99.2 Dependence on renal dialysis; Z86.73 Personal history of transient ischemic attack (TIA), and cerebral infarction without residual deficits ==

== ENCOUNTER → 2019-10-24 | Outpatient (CLI) | payer MEDICARE, OTHER | LOC: M.WC 04:02 | PROVIDERS: ATTEND Family Medicine | DX: E11.621 Type 2 diabetes mellitus with foot ulcer (principal); L97.511 Non-pressure chronic ulcer of other part of right foot limited to breakdown of skin; L97.521 Non-pressure chronic ulcer of other part of left foot limited to breakdown of skin; E11.22 Type 2 diabetes mellitus with diabetic chronic kidney disease; I50.9 Heart failure, unspecified; N18.6 End stage renal disease; Z99.2 Dependence on renal dialysis; Z86.73 Personal history of transient ischemic attack (TIA), and cerebral infarction without residual deficits ==

== ENCOUNTER → 2019-10-27 | Outpatient (CLI) | payer MEDICARE, OTHER | LOC: M.WC 06:40 | PROVIDERS: ATTEND Surgery | DX: E11.621 Type 2 diabetes mellitus with foot ulcer (principal); L97.511 Non-pressure chronic ulcer of other part of right foot limited to breakdown of skin; L97.521 Non-pressure chronic ulcer of other part of left foot limited to breakdown of skin; E11.22 Type 2 diabetes mellitus with diabetic chronic kidney disease; N18.6 End stage renal disease; I50.9 Heart failure, unspecified; Z99.2 Dependence on renal dialysis; Z86.73 Personal history of transient ischemic attack (TIA), and cerebral infarction without residual deficits ==

== ENCOUNTER → 2019-10-28 | Outpatient (CLI) | payer MEDICARE, OTHER | LOC: M.WC 04:01 | PROVIDERS: ATTEND Emergency Medicine Undersea and Hyperbaric Medicine | DX: E11.621 Type 2 diabetes mellitus with foot ulcer (principal); L97.511 Non-pressure chronic ulcer of other part of right foot limited to breakdown of skin; L97.521 Non-pressure chronic ulcer of other part of left foot limited to breakdown of skin; E11.22 Type 2 diabetes mellitus with diabetic chronic kidney disease; N18.6 End stage renal disease; I50.9 Heart failure, unspecified; Z99.2 Dependence on renal dialysis; Z86.73 Personal history of transient ischemic attack (TIA), and cerebral infarction without residual deficits ==

== ENCOUNTER → 2019-10-29 | Outpatient (CLI) | payer MEDICARE, OTHER | LOC: M.WC 01:51 | PROVIDERS: ATTEND Surgery | DX: E11.621 Type 2 diabetes mellitus with foot ulcer (principal); L97.512 Non-pressure chronic ulcer of other part of right foot with fat layer exposed; L97.521 Non-pressure chronic ulcer of other part of left foot limited to breakdown of skin; L84 Corns and callosities; E11.22 Type 2 diabetes mellitus with diabetic chronic kidney disease; N18.6 End stage renal disease; I50.9 Heart failure, unspecified; E11.40 Type 2 diabetes mellitus with diabetic neuropathy, unspecified; F40.240 Claustrophobia; Z99.2 Dependence on renal dialysis; Z86.73 Personal history of transient ischemic attack (TIA), and cerebral infarction without residual deficits; Z79.4 Long term (current) use of insulin ==

== ENCOUNTER → 2019-11-03 | Outpatient (CLI) | payer MEDICARE, OTHER | LOC: M.WC 02:59 | PROVIDERS: ATTEND Surgery | DX: E11.621 Type 2 diabetes mellitus with foot ulcer (principal); L97.511 Non-pressure chronic ulcer of other part of right foot limited to breakdown of skin; L97.521 Non-pressure chronic ulcer of other part of left foot limited to breakdown of skin; L84 Corns and callosities; E11.22 Type 2 diabetes mellitus with diabetic chronic kidney disease; N18.6 End stage renal disease; E11.69 Type 2 diabetes mellitus with other specified complication; M86.8X7 Other osteomyelitis, ankle and foot; I50.9 Heart failure, unspecified; Z89.421 Acquired absence of other right toe(s); Z79.4 Long term (current) use of insulin; Z99.2 Dependence on renal dialysis; Z86.73 Personal history of transient ischemic attack (TIA), and cerebral infarction without residual deficits ==

== ENCOUNTER → 2019-11-04 | Outpatient (CLI) | payer MEDICARE, OTHER | LOC: M.WC 03:28 | PROVIDERS: ATTEND Emergency Medicine Undersea and Hyperbaric Medicine | DX: E11.621 Type 2 diabetes mellitus with foot ulcer (principal); L97.511 Non-pressure chronic ulcer of other part of right foot limited to breakdown of skin; L97.521 Non-pressure chronic ulcer of other part of left foot limited to breakdown of skin; E11.22 Type 2 diabetes mellitus with diabetic chronic kidney disease; N18.6 End stage renal disease; I50.9 Heart failure, unspecified; Z99.2 Dependence on renal dialysis; Z86.73 Personal history of transient ischemic attack (TIA), and cerebral infarction without residual deficits ==

== ENCOUNTER → 2019-11-05 | Outpatient (CLI) | payer MEDICARE, OTHER | LOC: M.WC 03:58 | PROVIDERS: ATTEND Surgery | DX: E11.621 Type 2 diabetes mellitus with foot ulcer (principal); L97.512 Non-pressure chronic ulcer of other part of right foot with fat layer exposed; L97.521 Non-pressure chronic ulcer of other part of left foot limited to breakdown of skin; E11.22 Type 2 diabetes mellitus with diabetic chronic kidney disease; N18.6 End stage renal disease; E11.42 Type 2 diabetes mellitus with diabetic polyneuropathy; E11.69 Type 2 diabetes mellitus with other specified complication; M86.8X7 Other osteomyelitis, ankle and foot; I50.9 Heart failure, unspecified; F40.240 Claustrophobia; Z99.2 Dependence on renal dialysis; Z79.4 Long term (current) use of insulin; Z86.73 Personal history of transient ischemic attack (TIA), and cerebral infarction without residual deficits ==

== ENCOUNTER → 2019-11-11 | Outpatient (CLI) | payer MEDICARE, OTHER ==
[~2019-11-11] MED LIST changes: +DIALYVITE 3,001 EACH PO; +HUMULIN 70100 UNIT/2 SUBQ; +NOVOLIN 70100 UNIT/1 SUBQ; +TUMS X-STR300 MG PO; +VENTOLIN HFA 1818 GM INH; +VITAMIN D310 MC1 PO
== END ==
LOC: M.WC 03:41
PROVIDERS: ATTEND Emergency Medicine Undersea and Hyperbaric Medicine
DX: E11.621 Type 2 diabetes mellitus with foot ulcer (principal); L97.511 Non-pressure chronic ulcer of other part of right foot limited to breakdown of skin; L97.521 Non-pressure chronic ulcer of other part of left foot limited to breakdown of skin; E11.22 Type 2 diabetes mellitus with diabetic chronic kidney disease; N18.6 End stage renal disease; I50.9 Heart failure, unspecified; Z99.2 Dependence on renal dialysis; Z86.73 Personal history of transient ischemic attack (TIA), and cerebral infarction without residual deficits

== ENCOUNTER → 2019-11-12 | Outpatient (CLI) | payer MEDICARE, OTHER ==
[~2019-11-12] MED LIST changes: -DIALYVITE 3,001 EACH PO; -HUMULIN 70100 UNIT/2 SUBQ; -NOVOLIN 70100 UNIT/1 SUBQ; -TUMS X-STR300 MG PO; -VENTOLIN HFA 1818 GM INH; -VITAMIN D310 MC1 PO
== END ==
LOC: M.WC 03:37
PROVIDERS: ATTEND Surgery
DX: T81.89XD Other complications of procedures, not elsewhere classified, subsequent encounter (principal); E11.621 Type 2 diabetes mellitus with foot ulcer; L97.512 Non-pressure chronic ulcer of other part of right foot with fat layer exposed; L97.521 Non-pressure chronic ulcer of other part of left foot limited to breakdown of skin; E11.22 Type 2 diabetes mellitus with diabetic chronic kidney disease; N18.6 End stage renal disease; I50.9 Heart failure, unspecified; E11.69 Type 2 diabetes mellitus with other specified complication; M86.8X7 Other osteomyelitis, ankle and foot; R26.9 Unspecified abnormalities of gait and mobility; H91.90 Unspecified hearing loss, unspecified ear; Z99.2 Dependence on renal dialysis; Z86.73 Personal history of transient ischemic attack (TIA), and cerebral infarction without residual deficits; Z79.4 Long term (current) use of insulin; Y83.8 Other surgical procedures as the cause of abnormal reaction of the patient, or of later complication, without mention of misadventure at the time of the procedure

== ENCOUNTER → 2019-11-13 | Outpatient (CLI) | payer MEDICARE, OTHER ==
[~2019-11-13] MED LIST changes: +DIALYVITE 3,001 EACH PO; +HUMULIN 70100 UNIT/2 SUBQ; +NOVOLIN 70100 UNIT/1 SUBQ; +TUMS X-STR300 MG PO; +VENTOLIN HFA 1818 GM INH; +VITAMIN D310 MC1 PO
== END ==
LOC: M.WC 00:28
PROVIDERS: ATTEND Family Medicine
DX: E11.621 Type 2 diabetes mellitus with foot ulcer (principal); L97.511 Non-pressure chronic ulcer of other part of right foot limited to breakdown of skin; L97.521 Non-pressure chronic ulcer of other part of left foot limited to breakdown of skin; E11.22 Type 2 diabetes mellitus with diabetic chronic kidney disease; I50.9 Heart failure, unspecified; N18.6 End stage renal disease; Z86.73 Personal history of transient ischemic attack (TIA), and cerebral infarction without residual deficits; Z99.2 Dependence on renal dialysis

== ENCOUNTER → 2019-11-18 | Outpatient (CLI) | payer MEDICARE, OTHER ==
[~2019-11-18] MED LIST changes: -DIALYVITE 3,001 EACH PO; -HUMULIN 70100 UNIT/2 SUBQ; -NOVOLIN 70100 UNIT/1 SUBQ; -TUMS X-STR300 MG PO; -VENTOLIN HFA 1818 GM INH; -VITAMIN D310 MC1 PO
== END ==
LOC: M.WC 03:51
PROVIDERS: ATTEND Family Medicine
DX: E11.621 Type 2 diabetes mellitus with foot ulcer (principal); L97.512 Non-pressure chronic ulcer of other part of right foot with fat layer exposed; L97.521 Non-pressure chronic ulcer of other part of left foot limited to breakdown of skin; L84 Corns and callosities; E11.42 Type 2 diabetes mellitus with diabetic polyneuropathy; E11.22 Type 2 diabetes mellitus with diabetic chronic kidney disease; N18.6 End stage renal disease; I50.9 Heart failure, unspecified; Z99.2 Dependence on renal dialysis; Z86.73 Personal history of transient ischemic attack (TIA), and cerebral infarction without residual deficits; Z89.421 Acquired absence of other right toe(s)

== ENCOUNTER → 2019-11-21 | Outpatient (CLI) | payer MEDICARE, OTHER | LOC: M.WC 04:42 | PROVIDERS: ATTEND Surgery | DX: E11.621 Type 2 diabetes mellitus with foot ulcer (principal); L97.511 Non-pressure chronic ulcer of other part of right foot limited to breakdown of skin; L97.521 Non-pressure chronic ulcer of other part of left foot limited to breakdown of skin; L84 Corns and callosities; E11.22 Type 2 diabetes mellitus with diabetic chronic kidney disease; I50.9 Heart failure, unspecified; N18.6 End stage renal disease; Z99.2 Dependence on renal dialysis; Z86.73 Personal history of transient ischemic attack (TIA), and cerebral infarction without residual deficits ==

== ENCOUNTER → 2019-11-24 | Outpatient (CLI) | payer MEDICARE, OTHER | LOC: M.WC 06:49 | PROVIDERS: ATTEND Surgery | DX: E11.621 Type 2 diabetes mellitus with foot ulcer (principal); L97.511 Non-pressure chronic ulcer of other part of right foot limited to breakdown of skin; L97.521 Non-pressure chronic ulcer of other part of left foot limited to breakdown of skin; E11.42 Type 2 diabetes mellitus with diabetic polyneuropathy ==

== ENCOUNTER 2019-11-26 08:21 | Inpatient (IN) | payer MEDICARE, OTHER ==
[~2019-11-26] VITALS: Ht 180.3 cm; Wt 80.5 kg
[2019-11-26 08:28] VITALS: BP 113/41
[2019-11-26] MEDS ORDERED: TUMS X-STR300 MG PO (08:30)
[2019-11-26] MEDS ORDERED: VENTOLIN HFA 1818 GM INH (08:30)
[2019-11-26] MEDS ORDERED: HUMULIN 70100 UNIT/2 SUBQ (08:31)
[2019-11-26] MEDS ORDERED: DULERA 100 MCG/13 GM INH (08:31)
[2019-11-26] MEDS ORDERED: DIALYVITE 3,001 EACH PO (08:32)
[2019-11-26] MEDS ORDERED: NOVOLIN 70100 UNIT/1 SUBQ (08:32)
[2019-11-26] MEDS ORDERED: VITAMIN D310 MC1 PO (08:34)
[2019-11-26 08:46] LABS: HEMATOCRIT 31.4 % (42.0-52.0); HEMOGLOBIN 11.1 gm/dL (14.0-18.0); MCH 31.7 pg (26.0-34.0); MCHC 35.3 g/dL (28.0-37.0); MCV 89.8 fL (80.0-100.0); MPV 7.6 fl. (7.2-11.1); NUCLEATED RBCS 0 /100WBC; PLATELET COUNT* 399 thou/uL (150-400); RDW-CV 14.7 % (10.5-14.5)
[2019-11-26 08:55] LABS: CALCIUM 7.5 mg/dL (8.5-10.1); CREATININE 12.8 mg/dL (0.6-1.3); POTASSIUM 4.4 mmol/L (3.5-5.1)
[2019-11-26 08:57] LABS: INR 1.1; PROTIME 11.8 Seconds (9.20-11.50)
[2019-11-26 09:00] LABS: ALBUMIN 2.6 g/dL (3.4-5.0); TOTAL BILIRUBIN 0.5 mg/dL (<0.1-1.0); TOTAL PROTEIN 7.7 g/dL (6.4-8.2)
[2019-11-26 09:31] LABS: ABSOLUTE LYMPHOCYTES 0.7 thou/uL (0.8-5.3); ABSOLUTE MONOCYTES 0.2 thou/uL (0.0-1.2); ABSOLUTE NEUTROPHILS 16.2 thou/uL (1.6-8.1); PLATELET ESTIMATE ADEQUATE
[2019-11-26 14:30] VITALS: BP 139/58
--- NOTE | 2019-11-26 14:32 | EKG ---
[place] [address] ELECTROCARDIOGRAM REPORT Name: ARTEM MANCILLA Room: [place] [address] ADM IN [facility]#: [id number] Admission: 11/26/19 Attend Phys: Pedro Soto, Discharge: Date of : 59 Date of Service: 11/26/19 0837 Report #: [id number] THIS REPORT FOR: //name// [facility] ED Test Date: 2019-11-26 Test Time: 08:37:48 Pat Name: ARTEM MANCILLA Department: Room: [facility] Gender: M [employer]: : 1955 Requested By: Gomez Beard Order Number: [id number] MD: Zack Perez Measurements Intervals [place] Rate: 79 P: -89 UT: 264 QRS: -73 QRSD: 162 T: 88 QT: 429 QTc: 492 Interpretive Statements Atrial-sensed ventricular-paced rhythm No further analysis attempted due to paced rhythm Compared to ECG 07/30/2019 14:06:03 AV dual-paced complex(es) no longer present Electronically Signed On 11-26-2019 14:32:48 CDT by Zack Perez [email or web address] <ELECTRONICALLY SIGNED> By: Zack Perez MD, [facility] 11/26/19 1432 0837 0837 Zack Perez MD, FAC /EPI
[2019-11-26 15:00] VITALS: BP 135/53
[2019-11-26 21:10] VITALS: BP 131/57
[2019-11-27 00:17] VITALS: BP 117/73
[2019-11-27 04:05] VITALS: BP 116/49
[2019-11-27 04:39] LABS: ABSOLUTE LYMPHOCYTES 0.7 thou/uL (0.8-5.3); ABSOLUTE MONOCYTES 0.7 thou/uL (0.0-1.2); ABSOLUTE NEUTROPHILS 13.9 thou/uL (1.6-8.1); BASOPHILS 0.3 %; EOSINOPHILS 0.3 %; HEMATOCRIT 30.5 % (42.0-52.0); HEMOGLOBIN 10.5 gm/dL (14.0-18.0); LYMPHOCYTES 4.2 %; MCH 31.2 pg (26.0-34.0); MCHC 34.3 g/dL (28.0-37.0); MCV 91.1 fL (80.0-100.0); MONOCYTES 4.9 %; MPV 8.1 fl. (7.2-11.1); NUCLEATED RBCS 0 /100WBC; PLATELET COUNT* 369 thou/uL (150-400); POLYS 90.3 %; RBC 3.35 mil/uL (4.50-6.00); RDW-CV 14.9 % (10.5-14.5); WBC 15.3 thou/uL (4.0-11.0)
[2019-11-27 04:46] LABS: CALCIUM 7.4 mg/dL (8.5-10.1); POTASSIUM 4.7 mmol/L (3.5-5.1)
[2019-11-27 04:50] LABS: CREATININE 9.1 mg/dL (0.6-1.3)
[2019-11-27 08:00] VITALS: BP 123/76
[2019-11-27 12:25] VITALS: BP 112/42
--- NOTE | 2019-11-27 13:54 | 2DMMODE ---
[place] [address] 2 D/M-MODE ECHOCARDIOGRAM Name: ARTEM MANCILLA Room: [address] IN [facility]#: [id number] Admission: 11/26/19 Attend Phys: Pedro Soto, Discharge: Date of : 59 Date of Service: 11/27/19 1354 Report #: [id number] THIS REPORT FOR: cc: Pippa Rothman MD, Allison Louise MD Liston, Michael J. MD [facility] ~ APPROVED REPORT Study performed: 11/27/2019 09:32:50 EXAM: Comprehensive 2D, Doppler, and color-flow Echocardiogram Patient Location: In-Patient Room #: [facility] Status: routine BSA: 2.02 HR: 62 bpm BP: 116/49 mmHg Rhythm: NSR Other Information Study Quality: Good Indications Sepsis 2D Dimensions IVSd: 14.33 (7-11mm) LVOT Diam: 21.87 (18-24mm) LVDd: 48.12 mm PWd: 13.63 (7-11mm) Ascending Ao: 32.90 (22-36mm) LVDs: 35.39 (25-40mm) Aortic Root: 35.36 mm Volumes Left Atrial Volume (Systole) LA ESV Index: 26.00 mL/m2 Aortic Valve AoV Peak Jacques.: 2.13 m/s AO Peak Gr.: 18.09 mmHg LVOT Max P.94 mmHg AO Mean Gr.: 11.13 mmHg LVOT Mean P.78 mmHg LVOT Max V: 0.99 m/s AO V2 VTI: 45.09 cm LVOT Mean V: 0.61 m/s NAM (VTI): 1.82 cm2 LVOT V1 VTI: 21.82 [place] [address] 2 D/M-MODE ECHOCARDIOGRAM Name: ARTEM MANCILLA Room: [address] IN [facility]#: [id number] Admission: 11/26/19 Attend Phys: Pedro Soto, Discharge: Date of : 59 Date of Service: 11/27/19 1354 Report #: [id number] Mitral Valve E/A Ratio: 0.69 MV Decel. Time: 401.27 ms MV E Max Jacques.: 0.55 m/s MV PHT: 116.37 ms MVA (PHT): 1.89 cm2 TDI E/Lateral E': 7.86 E/Medial E': 7.86 Medial E' Jacques.: 0.07 m/s Lateral E' Jacques.: 0.07 m/s Pulmonary Valve PV Peak Jacques.: 0.97 m/s PV Peak Gr.: 3.73 mmHg Left Ventricle The left ventricle is normal size. Moderate left ventricular systolic dyssynergy consistent with underlying bundle branch block or paced rhythm. Mild to moderate concentric left ventricular hypertrophy. Left ventricular systolic function is normal. LVEF is 55-60%. Grade I - abnormal relaxation pattern. Right Ventricle The right ventricle is normal size. The right ventricular systolic function is normal. Pacemaker lead is present in the right ventricle. Atria Left atrium is mildly dilated. The right atrium size is normal. Aortic Valve Mild aortic valve sclerosis. Mild aortic regurgitation. Mild aortic stenosis. Mitral Valve The mitral valve is normal in structure. Trace mitral regurgitation. No evidence of mitral valve stenosis. Tricuspid Valve The tricuspid valve is normal in structure. Trace tricuspid regurgitation. Unable to assess PA pressure. Pulmonic Valve The pulmonary valve is normal in structure. Trace [place]mon[place] [address] 2 D/M-MODE ECHOCARDIOGRAM Name: ARTEM MANCILLA Room: [address] IN [facility]#: [id number] Admission: 11/26/19 Attend Phys: Pedro Soto, Discharge: Date of : 59 Date of Service: 11/27/19 1354 Report #: [id number] Great Vessels The aortic root is normal in size. IVC is normal in size and collapses >50% with inspiration. Pericardium Trace pericardial effusion. Left pleural effusion. <Conclusion> The left ventricle is normal size. Mild to moderate concentric left ventricular hypertrophy. Left ventricular systolic function is normal. LVEF is 55-60%. Grade I - abnormal relaxation pattern. Moderate left ventricular systolic dyssynergy consistent with underlying bundle branch block or paced rhythm. Left atrium is mildly dilated. Pacemaker lead is present in the right ventricle. Mild aortic valve sclerosis. Mild aortic regurgitation. Mild aortic stenosis. Trace mitral regurgitation. Trace tricuspid regurgitation. IVC is normal in size and collapses >50% with inspiration. Trace pericardial effusion. Left pleural effusion. <ELECTRONICALLY SIGNED> By: Dominguez Paula MD, FACC 11/27/19 1354 1354 1354 Dominguez Paula MD, FACC /INF
[2019-11-27 16:04] VITALS: BP 137/47
[2019-11-27 16:12] LABS: BE -0.9 mmol/L (-2 to +3); PCO2 37.8 mmHg (35.0-45.0); PO2 60.3 mmHg (75.0-100.0); pH 7.411 (7.340-7.450)
[2019-11-27 20:00] VITALS: BP 95/46
[2019-11-28] VITALS: BP 134/51
[2019-11-28 04:00] VITALS: BP 139/54
[2019-11-28 05:21] LABS: ABSOLUTE BASOPHILS 0.1 thou/uL (0.0-0.2); ABSOLUTE EOSINOPHILS 0.1 thou/uL (0.0-0.7); ABSOLUTE LYMPHOCYTES 0.7 thou/uL (0.8-5.3); ABSOLUTE MONOCYTES 1.1 thou/uL (0.0-1.2); ABSOLUTE NEUTROPHILS 14.4 thou/uL (1.6-8.1); BASOPHILS 0.4 %; EOSINOPHILS 0.3 %; HEMATOCRIT 30.9 % (42.0-52.0); HEMOGLOBIN 10.4 gm/dL (14.0-18.0); LYMPHOCYTES 4.6 %; MCH 31.1 pg (26.0-34.0); MCHC 33.7 g/dL (28.0-37.0); MCV 92.4 fL (80.0-100.0); MONOCYTES 6.9 %; MPV 7.7 fl. (7.2-11.1); NUCLEATED RBCS 0 /100WBC; PLATELET COUNT* 369 thou/uL (150-400); POLYS 87.8 %; RBC 3.35 mil/uL (4.50-6.00); RDW-CV 14.6 % (10.5-14.5); WBC 16.4 thou/uL (4.0-11.0)
[2019-11-28 05:34] LABS: CALCIUM 7.2 mg/dL (8.5-10.1); PHOSPHORUS* 7.1 mg/dL (2.5-4.9)
[2019-11-28 05:35] LABS: CREATININE 11.3 mg/dL (0.6-1.3)
[2019-11-28 05:50] LABS: ALBUMIN 2.1 g/dL (3.4-5.0); CALCIUM 7.6 mg/dL (8.5-10.1); POTASSIUM 4.4 mmol/L (3.5-5.1); TOTAL BILIRUBIN 0.4 mg/dL (<0.1-1.0); TOTAL PROTEIN 6.8 g/dL (6.4-8.2)
[2019-11-28 05:53] LABS: CREATININE 11.2 mg/dL (0.6-1.3)
[2019-11-28 08:00] VITALS: BP 137/52
[2019-11-28 16:00] VITALS: BP 123/48
[2019-11-28 20:00] VITALS: BP 118/61
[2019-11-28 23:45] VITALS: BP 136/50
[2019-11-29 04:06] VITALS: BP 128/51
[2019-11-29 08:00] VITALS: BP 137/49
[2019-11-29 12:12] VITALS: BP 118/50
[2019-11-29 17:20] VITALS: BP 127/52
[2019-11-29 20:00] VITALS: BP 130/51
[2019-11-29 23:45] VITALS: BP 142/48
[2019-11-30 04:00] VITALS: BP 138/46
[2019-11-30 08:00] VITALS: BP 117/44
[2019-11-30 12:03] LABS: CALCIUM 8.2 mg/dL (8.5-10.1); CREATININE 11.3 mg/dL (0.6-1.3); MAGNESIUM 2.6 mg/dL (1.8-2.4)
[2019-11-30 13:00] VITALS: BP 106/41
[2019-11-30 16:11] VITALS: BP 120/51
[2019-11-30 20:30] VITALS: BP 126/53
[2019-12-01] VITALS (7 sets, daily range): BP systolic 93–136; BP diastolic 43–66
[2019-12-01 04:20] LABS: HEMATOCRIT 31.3 % (42.0-52.0); HEMOGLOBIN 10.5 gm/dL (14.0-18.0); MCH 30.8 pg (26.0-34.0); MCHC 33.6 g/dL (28.0-37.0); MCV 91.7 fL (80.0-100.0); RBC 3.41 mil/uL (4.50-6.00); RDW-CV 15.3 % (10.5-14.5); WBC 16.1 thou/uL (4.0-11.0)
[2019-12-01 04:40] LABS: ALBUMIN 1.9 g/dL (3.4-5.0); CALCIUM 8.2 mg/dL (8.5-10.1); MAGNESIUM 2.7 mg/dL (1.8-2.4); POTASSIUM 5.6 mmol/L (3.5-5.1); TOTAL BILIRUBIN 0.4 mg/dL (<0.1-1.0); TOTAL PROTEIN 6.8 g/dL (6.4-8.2)
[2019-12-01 04:49] LABS: CREATININE 12.4 mg/dL (0.6-1.3)
[2019-12-01 16:23] LABS: CALCIUM 7.8 mg/dL (8.5-10.1); CREATININE 8.9 mg/dL (0.6-1.3); POTASSIUM 5.1 mmol/L (3.5-5.1)
--- NOTE | 2019-12-01 17:39 | TEE ---
[place] [address] TRANSESOPHAGEAL ECHOCARDIOGRAM Name: ARTEM MANCILLA Room: [address] IN [facility]#: [id number] Admission: 11/26/19 Attend Phys: Pedro Soto, Discharge: Date of : 59 Date of Service: 12/01/19 1739 Report #: [id number] THIS REPORT FOR: cc: Pippa Rothman MD, Allison Louise MD Liston, Michael J. MD [facility] ~ APPROVED REPORT Study performed: 12/01/2019 16:15:18 EXAM: Transesophageal Echocardiogram Patient Location: [facility] BSA: 2.01 HR: 62 bpm BP: 131/50 mmHg Other Information Study Quality: Good Indications R/O Valvular Vegetation Echo Enhancing Agent Indication: Rule out Shunt Agent(s) / Amount(s) Used: Agitated Saline cc Procedure After obtaining informed consent, patient underwent transesophageal echo in the [employer]. Type of Sedation : Conscious Sedation Sedation was administered by Gunjan Lerma RN. Sedation was achieved intravenously with: Versed (2) Fentanyl (50) Transesophageal probe was inserted and advanced into esophagus without difficulty by Dominguez Paula MD, FACC. Echo enhancement indication: R/O Septal defect. Echo enhancement agent administered: Agitated Saline The FARRUKH was performed without complications. Throughout the procedure, the blood pressure, pulse oximetry, cardiac rhythm, and rate were monitored. The patient tolerated the procedure without adverse effects. Recovery from conscious sedation was uneventful [place] [address] TRANSESOPHAGEAL ECHOCARDIOGRAM Name: ARTEM MANCILLA Room: [address]#: [id number] Admission: 11/26/19 Attend Phys: Pedro Soto, Discharge: Date of : 59 Date of Service: 12/01/19 1739 Report #: [id number] Left Ventricle The left ventricle is normal size. There is normal LV segmental wall motion. There is normal left ventricular wall thickness. Left ventricular systolic function is normal. LVEF is 60-65%. Right Ventricle The right ventricle is normal size. The right ventricular systolic function is normal. Pacemaker lead is present in the right ventricle and right atrium. Atria The left atrium size is normal. The right atrium size is normal. Aortic Valve The Aortic valve is sclerotic. Mild aortic regurgitation. There is no aortic valvular stenosis. Mitral Valve Mitral valve leaflets are thickened. Trace mitral regurgitation. No evidence of mitral valve stenosis. Tricuspid Valve The tricuspid valve is normal in structure. Trace tricuspid regurgitation. Pulmonic Valve The pulmonary valve is normal in structure. There is no pulmonic valvular regurgitation. Great Vessels The aortic root is normal in size. Pericardium There is no pericardial effusion. Left pleural effusion. <Conclusion> The left ventricle is normal size. There is normal left ventricular wall thickness. Left ventricular systolic function is normal. LVEF is 60-65%. The Aortic valve is sclerotic. Mild aortic regurgitation. There is no aortic valvular stenosis. Mitral [place] [address] TRANSESOPHAGEAL ECHOCARDIOGRAM Name: ARTEM MANCILLA Room: [address]#: [id number] Admission: 11/26/19 Attend Phys: Pedro Soto, Discharge: Date of : 59 Date of Service: 12/01/191738 Report #: [id number] Trace mitral regurgitation. The tricuspid valve is normal in structure. Trace tricuspid regurgitation. Left pleural effusion. Pacemaker lead is present in the right ventricle and right atrium. No evidence of valvular vegitations. Pacemaker leads visualized and no evidence of lead vegitations. <ELECTRONICALLY SIGNED> By: Dominguez Paula MD, FACC 12/01/191738 38 38 Dominguez Paula MD, FACC /INF
[2019-12-02] VITALS: BP 104/52
[2019-12-02 04:00] VITALS: BP 117/47
[2019-12-02 04:47] LABS: HEMATOCRIT 30.7 % (42.0-52.0); HEMOGLOBIN 10.1 gm/dL (14.0-18.0); MCH 30.4 pg (26.0-34.0); MCV 92.1 fL (80.0-100.0); MPV 8.1 fl. (7.2-11.1); RBC 3.33 mil/uL (4.50-6.00); RDW-CV 15.1 % (10.5-14.5); WBC 15.7 thou/uL (4.0-11.0)
[2019-12-02 04:57] LABS: CALCIUM 7.9 mg/dL (8.5-10.1)
[2019-12-02 05:04] LABS: CREATININE 9.9 mg/dL (0.6-1.3)
[2019-12-02 08:57] VITALS: BP 106/46
[2019-12-02 12:01] VITALS: BP 113/45
--- NOTE | 2019-12-03 12:26 | CON ---
[address] [address] CONSULTATION Name: LAURENTARTEM Contreras Room: [address] IN M.R.#: [id number] Admission: 11/26/19 Attend Phys: Pedro Soto MD Discharge: 12/02/19 Date of : 59 Report #: [id number] THIS REPORT FOR: //name// cc: Pippa Rothman MD, Allison Louise MD ~ THIS REPORT FOR: //name// CC: Pippa Soto Nory Almeida DATE OF SERVICE: 11/28/2019 CHIEF COMPLAINT: Followup of cellulitis with ulceration to right foot. He is status post resection of fifth metatarsal and distal fourth metatarsal for osteomyelitis. Wound culture growing Staphylococcus aureus. He is on parenteral vancomycin and meropenem. LABORATORY DATA: WBC 16.4, RBC 3.35, hemoglobin 10.4, hematocrit 30.9, platelets 369. BUN 78, creatinine 11.3, glucose 165. PHYSICAL EXAMINATION: VITAL SIGNS: Temperature 98.6, pulse 64, respirations 18, blood pressure 137/52. EXTREMITIES: There is decreased erythema to the right dorsal foot. The lateral foot wound has a dry scab with no drainage, bleeding, or underlying fluctuance/crepitation. The foot is warm with no signs of acute vascular embarrassment. Previously, I had been unable to probe bone through the wound. Overall, clinically improved. IMPRESSION: Cellulitis left foot, status post metatarsal resections. PLAN: The foot was cleansed and redressed with Aquacel Ag, ABD, Kerlix, and Samuel bandage. I do not anticipate any formal surgical debridement given the clinical and radiographic findings. <ELECTRONICALLY SIGNED> By: Jasson Casper DPM 12/03/19 1226 1804 [id number] Casper DPM /nt
--- NOTE | 2019-12-03 12:26 | CON ---
[address] [address] CONSULTATION Name: ARTEM MANCILLA Room: [address] IN M.R.#: [id number] Admission: 11/26/19 Attend Phys: Pedro Soto MD Discharge: 12/02/19 Date of : 59 Report #: [id number] THIS REPORT FOR: //name// cc: Pippa Rothman MD, Allison Louise MD ~ THIS REPORT FOR: //name// CC: Pippa Soto Nory Almeida DATE OF SERVICE: 11/30/2019 CHIEF COMPLAINT: Followup of ulceration and cellulitis to the right lower extremity, complicated by type 2 diabetes mellitus, PAD and end-stage renal disease, on dialysis. His wound culture grew oxacillin-sensitive Staphylococcus aureus, and he is on parenteral vancomycin. He is unable to have foot MRI due to pacemaker. He has had persistent fever since yesterday with T-max of 101.6, and this afternoon it is 100.8. He feels slightly better, poor p.o. intake. He is scheduled for dialysis tomorrow. LABORATORY DATA: Sodium 125, potassium 5.0, chloride 93, CO2 of 25, BUN 88, creatinine 11.3, glucose 190. PHYSICAL EXAMINATION: VITAL SIGNS: Temperature 100.8, pulse 62, respirations 16, blood pressure 106/41. EXTREMITIES: The right foot remains inflamed with erythema to the dorsal lateral aspect. There is a small wound at the lateral foot overlying the cuboid, and there is localized inflammation with small amount of expressible purulence. The bone is covered with a scant layer of fibrous tissue. The distal incision along the fifth metatarsal resection site is dry and scabbed with no surrounding inflammation. There is no pallor or cyanosis to suggest acute vascular embarrassment. There is no fluctuance or crepitation to suggest abscess. I reviewed recent foot radiographs and the proximal wound at the lateral foot is overlying the cuboid bone with no discernible osteolysis. There is no subcutaneous emphysema. IMPRESSION: Cellulitis with soft tissue infection, right foot. PLAN: Based on persistent inflammation and fevers, I will take the patient to the operating room tomorrow and debride the cuboid bone. Today, I performed an excisional wound debridement, whereby took a scalpel blade and made a small incision just distal to the proximal wound that had the purulence. I expressed several drops of purulence and debrided some of the fibronecrotic tissue overlying the cuboid bone. The wound was cleansed and [facility] [place] [address] CONSULTATION Name: ARTEM MANCILLA Room: [address] IN M.R.#: [id number] Admission: 11/26/19 Attend Phys: Pedro Soto MD Discharge: 12/02/19 Date of : 59 Report #: [id number] Kylie Ramosx gauze. I will keep the patient n.p.o. past 0600 tomorrow and plan debridement of the wound and cuboid bone. <ELECTRONICALLY SIGNED> By: Jasson Casper DPM 12/03/19 1226 1405 1553Dday Casper DPM /nt
--- NOTE | 2019-12-03 12:26 | CON ---
[address] [address] CONSULTATION Name: ARTEM MANCILLA Room: [address] IN M.R.#: [id number] Admission: 11/26/19 Attend Phys: Pedro Soto MD Discharge: 12/02/19 Date of : 59 Report #: [id number] THIS REPORT FOR: //name// cc: Pippa Rothman MD, Allison Louise MD ~ THIS REPORT FOR: //name// CC: Ppipa Soto Nory Arguellesck DATE OF SERVICE: 11/29/2019 CHIEF COMPLAINT: Followup of cellulitis with healing postoperative wound to the right lateral foot. He has type 2 diabetes mellitus with PAD and end-stage renal disease, on dialysis. Wound cultures growing Staphylococcus aureus with pending sensitivities. He is on parenteral vancomycin and meropenem. He feels slightly better, poor appetite, low-grade pain to the foot. No new labs for review. PHYSICAL EXAMINATION: VITAL SIGNS: Temperature 100.2, pulse 60, respirations 18, blood pressure 118/50. EXTREMITIES: Slight decreased erythema to the right dorsal foot with no underlying fluctuance or crepitation. The wound to the right lateral foot has a dry scab with no drainage or bleeding. I am unable to express any fluid and there are no signs of abscess. No pallor/cyanosis or signs of acute vascular embarrassment. IMPRESSION: Soft tissue infection right foot with cellulitis, healing postoperative wound from recent fifth ray resection. PLAN: I do not recommend any formal surgical debridement at this point since the lateral wound is stable and I recently debrided it and I debrided a couple days ago without any underlying drainage or visible bone. I will order foot MRI tomorrow to make sure there are no signs of abscess, although I do not clinically favor this based on appearance and lack of expressible fluid. The patient to remain strictly nonweightbearing to the extremity. Awaiting final culture results. <ELECTRONICALLY SIGNED> By: Jasson Casper DPM 12/03/19 1226 1228 1253Dday Casper DPM /nt
--- NOTE | 2019-12-03 12:26 | OP ---
[address] [address] OPERATIVE REPORT Name: ARTEM MANCILLA Room: [address] IN M.R.#: [id number] Admission: 11/26/19 Attend Phys: Pedro Soto MD Discharge: 12/02/19 Date of : 59 Report #: [id number] THIS REPORT FOR: //name// cc: Pippa Rothman MD, Allison Louise MD ~ CC: Pippa Cueto Juan Pablo DATE OF SERVICE: 12/01/2019 SURGEON: Jasson Casper DPM PREOPERATIVE DIAGNOSIS: Deep tissue infection with possible osteomyelitis, right foot. POSTOPERATIVE DIAGNOSIS: Deep tissue infection with possible osteomyelitis, right foot. PROCEDURES: 1. Ostectomy, right cuboid and proximal fourth metatarsal bones. 2. Excision of soft tissue, right foot. 3. Incision and drainage, right foot. ANESTHESIA: MAC. INJECTABLES: 20 mL of a 1:1 mixture of 0.5% Marcaine plain and 1% lidocaine plain. ESTIMATED BLOOD LOSS: Roughly 5 mL. HEMOSTASIS: Right ankle pneumatic tourniquet at 275 mmHg. SPECIMENS: Bone, right cuboid. CULTURES: 1. Bone, right cuboid and proximal fourth metatarsal, aerobic/anaerobic. 2. Soft tissue, right foot, aerobic/anaerobic. SUTURES: 3-0 nylon. COMPLICATIONS: None. DESCRIPTION OF PROCEDURE: The patient was brought to the OR and left supine in his hospital bed. A well-padded right ankle pneumatic tourniquet was placed and a local anesthetic block given proximal to the [place] [address] OPERATIVE REPORT Name: ARTEM MANCILLA Room: [address] IN R.#: [id number] Admission: 11/26/19 Attend Phys: Pedro Soto MD Discharge: 12/02/19 Date of : 59 Report #: [id number] was administered. The extremity was prepped and draped aseptically and exsanguinated with inflation of the tourniquet. A #10 surgical blade was used to circumferentially excise the existing wound overlying the cuboid. I then created a proximal and distal linear incision to facilitate access to the underlying bone and tissue. There was a small amount of purulence near the cuboid, roughly 0.5 mL. I excised some of the infected subcutaneous tissue and submitted it for culture. The cuboid and fourth metatarsal did not appear to have any lysis or necrosis. I planed bone with an osteotome and mallet and submitted both slices from the fourth metatarsal and cuboid for culture and pathology. Electrocautery was utilized for hemostasis. The wound was flushed with sterile saline and the proximal and distal incisions were repaired with 3-0 nylon. The central postoperative wound was packed with Aquacel Ag and the foot was dressed with ABDs, Kerlix, and Samuel bandage. The tourniquet was deflated and the patient left the OR with no pain or complications noted. <ELECTRONICALLY SIGNED> By: Jasson Casper DPM 12/03/19 1226 1007 1025Dajohnny Casper DPM /nt
--- NOTE | 2019-12-03 12:26 | CON ---
[address] [address] CONSULTATION Name: ARTEM MANCILLA Room: [address] IN ..#: [id number] Admission: 11/26/19 Attend Phys: Pedro Soto MD Discharge: 12/02/19 Date of : 59 Report #: [id number] THIS REPORT FOR: //name// cc: Pippa Rothman MD, Allison Louise MD ~ THIS REPORT FOR: //name// CC: Pippa Soto Nory Juan Pablo DATE OF SERVICE: 11/26/2019 ADMISSION DIAGNOSIS: Right diabetic foot ulceration with cellulitis. HISTORY OF PRESENT ILLNESS: The patient is a 64-year-old male well known to me from multiple right foot surgeries related to osteomyelitis. Several days ago, he developed fevers, chills, malaise with increased inflammation to the right foot. He was admitted through the Emergency Department today from the wound care center. He is afebrile with a temperature of 101.7. PAST MEDICAL HISTORY: Significant for type 2 diabetes mellitus, peripheral arterial disease, end-stage renal disease, on dialysis. Blood cultures pending x 2. Right foot x-ray was negative for subcutaneous emphysema or bone destruction. He is currently on parenteral vancomycin and meropenem. LABORATORY DATA: WBC 17.0, hemoglobin 11.1, hematocrit 31.4, platelets 399. BUN 88, creatinine 12.8, glucose 211, albumin 2.6. PHYSICAL EXAMINATION: Temperature 101.7, pulse 80, respirations 15, blood pressure 135/53. The patient is alert and oriented, diaphoretic with fever. The right foot is swollen with inflammation and erythema extending from the dorsal aspect to the lateral postoperative wound. There is no fluctuance or crepitation. The postoperative wound measures roughly 3.5 x 1.0 x 0.5 cm. I am unable to express any purulence or drainage. The wound is located along the distal aspect of the lateral foot and there is a small proximal wound, roughly 5 mm diameter near the base of the fourth metatarsal. There is no pallor, cyanosis or signs of acute vascular changes. There is no pain to palpation, although he has advanced peripheral sensory neuropathy. The incision has some red granulation, but is mostly covered with a dry brown eschar. Upon debridement of the eschar, I was unable to palpate underlying bone or express any drainage. The wound is fairly shallow. IMPRESSION: Diabetic foot ulceration with cellulitis, [place] [address] CONSULTATION Name: ARTEM MANCILLA Room: [address] IN [facility]#: [id number] Admission: 11/26/19 Attend Phys: Pedro Soto MD Discharge: 12/02/19 Date of : 59 Report #: [id number] right fifth ray and distal fourth metatarsal resection for osteomyelitis. PLAN: An excisional ulcer debridement performed with a scalpel to remove subcutaneous tissue from the subcutaneous tissue layer. This was an excisional surgical debridement. Scant bleeding was achieved and stopped with pressure. The wound was cleansed and dressed with Xeroform, ABD, Kerlix and Samuel bandage. I do not anticipate a formal surgical debridement at this point. I did an aerobic swab culture. We will monitor the patient's progress daily. <ELECTRONICALLY SIGNED> By: Jasson Casper DPM 12/03/19 1226 1946 2041Dday Casper DPM /nt
--- NOTE | 2019-12-04 16:06 | PATH ---
[address] [address] PATHOLOGY RPT PROCEDURE Name: ARTEM MANCILLA Room: [address] IN .R.#: [id number] Admission: 11/26/19 Date of : 59 Discharge: 12/02/19 Report #: [id number] Path Case #: [id number] LCA Accession Number: [id number] . 01 Material submitted: . foot - RIGHT CUBOID BONE. Modifiers: right . 01 Clinician provided ICD-10: A41.9 N18.6 . 01 Clinical history: . CELLULITIS, DIABETIC FOOT ULCER, ESRD ON DIALYSIS, OSTEOMYELITIS RIGHT FOOT . 02 Diagnosis: Right cuboid bone: - Benign osteocartilaginous segment with prominent osteomyelitis. (RUDDY/db; 12/04/2019) LBQ 12/04/2019 1549 Local . 02 Electronically signed: . Kem Mojica MD, Pathologist NPI- [id number] . 01 Gross description: . The specimen is received in formalin, labeled "Artem Mancilla, right cuboid bone" and consists of a segment of cartilaginous brown bone measuring 2.1 x 1.0 x 1.0 cm. It is sectioned revealing brown bone cut surfaces and entirely submitted in A1 following decalcification. (SDY; 12/03/2019) SYU/SYU 12/03/2019 1130 Local . 02 Pathologist provided ICD-10: M86.171 . 02 CPT . 068494, 322856 Specimen Comment: A courtesy copy of this report has been sent to [phone] Specimen Comment: [phone], , Specimen Comment: Report sent to ,DR SMITH,DR CONROY / DR BAILEY Performed at: [address] [facility], [place] [id number] MD Elliot Lloyd MD Phone: [phone] Performed at: [facility] [address] [place], [place] [id number] [address] [address] PATHOLOGY RPT PROCEDURE Name: ARTEM MANCILLA Room: [address] IN [facility].#: [id number] Admission: 11/26/19 Date of : 59 Discharge: 12/02/19 Report #: [id number] Path Case #: [id number] MD Kem Mojica [place] Phone: [phone]
== END 2019-12-02 15:10 | disposition short-term general hospital (02) | DRG 853 ==
LOC: M.ORTHSURG 09:31 → M.TBA-ER 09:31 → M.ORTHSURG 15:05 → M.2W 11-27 18:44
PROVIDERS: Anesthesiology; Family Medicine; Internal Medicine; Internal Medicine Nephrology; ADMIT Internal Medicine; ATTEND Internal Medicine
PROC: 0JBQ0ZZ Excision of Right Foot Subcutaneous Tissue and Fascia, Open Approach (ICD-10-PCS; principal; 2019-11-26)
PROC: 5A1D70Z Performance of Urinary Filtration, Intermittent, Less than 6 Hours Per Day (ICD-10-PCS; principal; 2019-11-26)
PROC: 5A1D70Z Performance of Urinary Filtration, Intermittent, Less than 6 Hours Per Day (ICD-10-PCS; 2019-11-28)
PROC: 0JBQ0ZZ Excision of Right Foot Subcutaneous Tissue and Fascia, Open Approach (ICD-10-PCS; 2019-11-30)
PROC: 0QBL0ZZ Excision of Right Tarsal, Open Approach (ICD-10-PCS; 2019-12-01)
PROC: 0QBN0ZZ Excision of Right Metatarsal, Open Approach (ICD-10-PCS; 2019-12-01)
PROC: B24BZZ4 Ultrasonography of Heart with Aorta, Transesophageal (ICD-10-PCS; 2019-12-01)
DX: A41.01 Sepsis due to Methicillin susceptible Staphylococcus aureus (principal); N18.6 End stage renal disease; G93.41 Metabolic encephalopathy; E87.1 Hypo-osmolality and hyponatremia; L03.115 Cellulitis of right lower limb; M86.8X7 Other osteomyelitis, ankle and foot; E11.621 Type 2 diabetes mellitus with foot ulcer; E03.9 Hypothyroidism, unspecified; E11.51 Type 2 diabetes mellitus with diabetic peripheral angiopathy without gangrene; I50.9 Heart failure, unspecified; L97.512 Non-pressure chronic ulcer of other part of right foot with fat layer exposed; E11.69 Type 2 diabetes mellitus with other specified complication; Z20.828 Contact with and (suspected) exposure to other viral communicable diseases; Z79.4 Long term (current) use of insulin; Z95.0 Presence of cardiac pacemaker; Z79.01 Long term (current) use of anticoagulants; Z79.899 Other long term (current) drug therapy

== ENCOUNTER 2019-12-15 16:49 | Inpatient (IN) | payer MEDICARE, OTHER ==
[~2019-12-15] VITALS: Ht 180.3 cm; Wt 73.9 kg
[~2019-12-15 16:49] MED LIST changes: +DIALYVITE 3,001 EACH PO; +HUMULIN 70100 UNIT/2 SUBQ; +NOVOLIN 70100 UNIT/1 SUBQ; +TUMS X-STR300 MG PO; +VENTOLIN HFA 1818 GM INH; +VITAMIN D310 MC1 PO
[2019-12-15] MEDS ORDERED: ASA81BEC PO (17:15)
[2019-12-15] MEDS ORDERED: LANTUS SUBQ (17:17)
[2019-12-15] MEDS ORDERED: INSULIN LI100 UNIT/1 SUBQ (17:20)
[2019-12-15] MEDS ORDERED: MEGESTROL ACETA40 MG PO (17:21)
[2019-12-15] MEDS ORDERED: NAFCILLIN 2 GM A2 G1 IV (17:24)
[2019-12-15 19:00] VITALS: BP 166/67
[2019-12-16 03:57] LABS: MCH 30.8 pg (26.0-34.0); MCHC 33.6 g/dL (28.0-37.0); MCV 91.7 fL (80.0-100.0); MPV 7.2 fl. (7.2-11.1); RBC 2.18 mil/uL (4.50-6.00); RDW-CV 16.3 % (10.5-14.5); WBC 8.5 thou/uL (4.0-11.0)
[2019-12-16 04:06] LABS: CALCIUM 7.1 mg/dL (8.5-10.1); CREATININE 6.4 mg/dL (0.6-1.3); POTASSIUM 3.9 mmol/L (3.5-5.1)
[2019-12-16 04:17] LABS: HEMOGLOBIN 6.7 gm/dL (14.0-18.0)
[2019-12-16 05:16] LABS: HEMATOCRIT 21.4 % (42.0-52.0); HEMOGLOBIN 7.1 gm/dL (14.0-18.0)
[2019-12-16 07:30] VITALS: BP 176/63
[2019-12-16 19:00] VITALS: BP 164/64
[2019-12-17 04:50] LABS: HEMATOCRIT 20.4 % (42.0-52.0)
[2019-12-17 05:04] LABS: HEMOGLOBIN 6.7 gm/dL (14.0-18.0)
[2019-12-17 05:12] LABS: ALBUMIN 1.3 g/dL (3.4-5.0); CALCIUM 7.1 mg/dL (8.5-10.1); CREATININE 7.6 mg/dL (0.6-1.3); PHOSPHORUS* 5.2 mg/dL (2.5-4.9); POTASSIUM 4.1 mmol/L (3.5-5.1)
[2019-12-17 07:30] VITALS: BP 196/72
[2019-12-17 08:04] VITALS: BP 176/72
[2019-12-17 19:00] VITALS: BP 158/61
[2019-12-18 08:00] VITALS: BP 143/56
[2019-12-18 19:55] VITALS: BP 155/61
[2019-12-19 05:07] LABS: HEMATOCRIT 25.5 % (42.0-52.0); HEMOGLOBIN 8.5 gm/dL (14.0-18.0); MCH 30.2 pg (26.0-34.0); MCHC 33.3 g/dL (28.0-37.0); MCV 90.7 fL (80.0-100.0); MPV 7.5 fl. (7.2-11.1); RBC 2.81 mil/uL (4.50-6.00); RDW-CV 16.7 % (10.5-14.5); WBC 6.8 thou/uL (4.0-11.0)
[2019-12-19 05:21] LABS: ALBUMIN 1.5 g/dL (3.4-5.0); CALCIUM 6.9 mg/dL (8.5-10.1); CREATININE 7.3 mg/dL (0.6-1.3); POTASSIUM 4.8 mmol/L (3.5-5.1)
[2019-12-19 05:22] LABS: ALBUMIN 1.5 g/dL (3.4-5.0); CALCIUM 7.2 mg/dL (8.5-10.1); CREATININE 7.4 mg/dL (0.6-1.3); MAGNESIUM 2.3 mg/dL (1.8-2.4); POTASSIUM 4.3 mmol/L (3.5-5.1); TOTAL BILIRUBIN 1.4 mg/dL (<0.1-1.0); TOTAL PROTEIN 6.1 g/dL (6.4-8.2)
[2019-12-19 08:00] VITALS: BP 189/72
[2019-12-19 20:26] VITALS: BP 138/51
[2019-12-20 08:00] VITALS: BP 132/58
[2019-12-20 20:00] VITALS: BP 161/64; BP 90/58
[2019-12-21 04:48] LABS: HEMATOCRIT 24.5 % (42.0-52.0); HEMOGLOBIN 8.1 gm/dL (14.0-18.0); MCH 30.3 pg (26.0-34.0); MCHC 32.8 g/dL (28.0-37.0); MCV 92.3 fL (80.0-100.0); MPV 7.6 fl. (7.2-11.1); RBC 2.66 mil/uL (4.50-6.00); RDW-CV 16.6 % (10.5-14.5); WBC 7.2 thou/uL (4.0-11.0)
[2019-12-21 05:38] LABS: ALBUMIN 1.6 g/dL (3.4-5.0); CALCIUM 7.5 mg/dL (8.5-10.1); MAGNESIUM 2.3 mg/dL (1.8-2.4); POTASSIUM 5.1 mmol/L (3.5-5.1); TOTAL BILIRUBIN 1.2 mg/dL (<0.1-1.0); TOTAL PROTEIN 6.5 g/dL (6.4-8.2)
[2019-12-21 08:00] VITALS: BP 154/72
[2019-12-21 20:00] VITALS: BP 165/65
[2019-12-22 08:00] VITALS: BP 185/59
[2019-12-22 20:00] VITALS: BP 142/54
[2019-12-23 08:00] VITALS: BP 171/70
[2019-12-23 20:00] VITALS: BP 166/67
[2019-12-24 08:00] VITALS: BP 191/72
[2019-12-24 17:15] VITALS: BP 144/72
--- NOTE | 2019-12-24 17:30 | CON ---
[address] [address] CONSULTATION Name: ARTEM MANCILLA Room: [address] IN M.R.#: [id number] Admission: 12/15/19 Attend Phys: Nando Robles MD Discharge: Date of : 59 Report #: [id number] THIS REPORT FOR: //name// cc: Pippa Rothman MD, Allison Louise MD ~ THIS REPORT FOR: //name// NEPHROLOGY CONSULTATION CONSULTING PHYSICIAN: Dr. Robles. REASON FOR CONSULTATION: End-stage kidney disease. HISTORY OF PRESENT ILLNESS: A 64-year-old gentleman who was admitted to [facility] in late November with an infected diabetic foot ulcer. He was transferred to [facility] for ID consultation. He comes back for further rehabilitation, now that he is postop right [id number] amputation on 12/09. He presently has no complaints, appears to be comfortable. His last dialysis was on Sunday. REVIEW OF SYSTEMS: Constitutional, psych, heme, eyes, ENT, respiratory, cardiac, GI, , endocrine, all negative except as documented above. PAST MEDICAL HISTORY: End-stage kidney disease, permanent pacemaker, anemia of chronic disease, diabetic foot ulcer, aortic and mitral valve regurgitation, hypothyroidism, peripheral vascular disease, secondary hyperparathyroidism, insulin-dependent diabetes. CURRENT MEDICATIONS: Reviewed. FAMILY HISTORY: Not pertinent in this 64-year-old gentleman. SOCIAL HISTORY: No tobacco. PHYSICAL EXAMINATION: VITAL SIGNS: Blood pressure is 176/63, pulse 60, respirations 17, temperature 37. GENERAL: No acute distress. EYES: Open. EARS: Externally normal. NECK: Supple. CARDIOVASCULAR: Regular rate. LUNGS: No crackles. ABDOMEN: Soft. MUSCULOSKELETAL: He has a right BKA . PSYCHIATRIC: Alert, oriented. [address] [address] CONSULTATION Name: ARTEM MANCILLA Room: [address] IN [facility]#: [id number] Admission: 12/15/19 Attend Phys: Nando Robles MD Discharge: Date of : 59 Report #: [id number] LABORATORY DATA: White cell count 8.5, hemoglobin was 7.1, platelets 626. Sodium 139, potassium 3.9, chloride 102, bicarbonate 28, BUN 43, creatinine 6.4, glucose 239, calcium 7.1. ASSESSMENT: 1. End-stage kidney disease, on hemodialysis Sunday, Sunday and Sunday at the [facility]. 2. Insulin-dependent diabetes. 3. Diabetic foot ulcer. He had a right BKA on 12/09 at [facility]. 4. Permanent pacemaker. 5. Anemia of chronic disease. 6. Aortic/mitral valve regurgitation. 7. Hypothyroidism. 8. Peripheral vascular disease. 9. Secondary hyperparathyroidism, on sevelamer. PLAN: No indications for dialysis today. Plan dialysis tomorrow. Continue XIOMARA therapy. Discontinue magnesium, aluminum hydroxide and can discontinue and avoid Fleet enema. We will check lab in a.m. and plan dialysis tomorrow. Thank you for requesting my opinion in the care and management of this patient. <ELECTRONICALLY SIGNED> By: Chinedu Begum MD 12/24/19 1730 1355 1421Abipriscilla Begum MD /nt
[2019-12-24 20:18] VITALS: BP 140/59
[2019-12-25 08:00] VITALS: BP 172/82
[2019-12-25 10:00] VITALS: BP 173/69
[2019-12-25 20:09] VITALS: BP 170/59
[2019-12-26 08:07] VITALS: BP 155/52
[2019-12-26 14:29] LABS: ABSOLUTE BASOPHILS 0.2 thou/uL (0.0-0.2); ABSOLUTE EOSINOPHILS 0.3 thou/uL (0.0-0.7); ABSOLUTE LYMPHOCYTES 0.9 thou/uL (0.8-5.3); ABSOLUTE MONOCYTES 0.6 thou/uL (0.0-1.2); ABSOLUTE NEUTROPHILS 5.5 thou/uL (1.6-8.1); BASOPHILS 2.6 %; EOSINOPHILS 3.6 %; HEMATOCRIT 21.8 % (42.0-52.0); HEMOGLOBIN 7.4 gm/dL (14.0-18.0); LYMPHOCYTES 11.6 %; MCH 30.7 pg (26.0-34.0); MCHC 33.7 g/dL (28.0-37.0); MONOCYTES 8.3 %; MPV 7.2 fl. (7.2-11.1); NUCLEATED RBCS 0 /100WBC; PLATELET COUNT* 583 thou/uL (150-400); POLYS 73.9 %; WBC 7.4 thou/uL (4.0-11.0)
[2019-12-26 14:33] LABS: CALCIUM 8.3 mg/dL (8.5-10.1); CREATININE 8.4 mg/dL (0.6-1.3); POTASSIUM 5.8 mmol/L (3.5-5.1)
[2019-12-26 20:18] VITALS: BP 119/52
[2019-12-27 09:04] VITALS: BP 178/58
[2019-12-27 19:00] VITALS: BP 165/60
[2019-12-28 08:05] VITALS: BP 149/55
[2019-12-28 19:33] VITALS: BP 155/71
[2019-12-29 08:00] VITALS: BP 190/66
[2019-12-29 19:00] VITALS: BP 182/65
[2019-12-30 08:00] VITALS: BP 176/71
[2019-12-30 13:20] LABS: HEMATOCRIT 22.1 % (42.0-52.0); HEMOGLOBIN 7.3 gm/dL (14.0-18.0); MCH 31.1 pg (26.0-34.0); MCHC 32.8 g/dL (28.0-37.0); MCV 94.9 fL (80.0-100.0); MPV 7.4 fl. (7.2-11.1); RBC 2.33 mil/uL (4.50-6.00); RDW-CV 18.1 % (10.5-14.5); WBC 7.4 thou/uL (4.0-11.0)
[2019-12-30 13:33] LABS: CALCIUM 8.7 mg/dL (8.5-10.1); CREATININE 11.5 mg/dL (0.6-1.3); TOTAL BILIRUBIN 0.8 mg/dL (<0.1-1.0); TOTAL PROTEIN 6.9 g/dL (6.4-8.2)
[2019-12-30 13:43] LABS: POTASSIUM 6.8 mmol/L (3.5-5.1)
[2019-12-30 19:00] VITALS: BP 149/62
[2019-12-31 07:30] VITALS: BP 158/60
[2019-12-31 10:13] LABS: CALCIUM 8.8 mg/dL (8.5-10.1)
[2019-12-31 10:15] LABS: CREATININE 9.5 mg/dL (0.6-1.3)
[2019-12-31 19:00] VITALS: BP 127/46
[2020-01-01 08:00] VITALS: BP 139/65
[2020-01-01 09:18] LABS: POTASSIUM 6.2 mmol/L (3.5-5.1)
[2020-01-01 21:00] VITALS: BP 150/54
[2020-01-02 08:00] VITALS: BP 173/77
[2020-01-02 13:36] LABS: ALBUMIN 2.1 g/dL (3.4-5.0); CALCIUM 8.6 mg/dL (8.5-10.1)
[2020-01-02 13:37] LABS: CREATININE 10.6 mg/dL (0.6-1.3)
[2020-01-02 13:38] LABS: POTASSIUM 6.6 mmol/L (3.5-5.1)
[2020-01-02 20:18] VITALS: BP 167/61
[2020-01-03 08:05] VITALS: BP 175/62
[2020-01-03 12:09] LABS: HEMATOCRIT 24.2 % (42.0-52.0); HEMOGLOBIN 7.8 gm/dL (14.0-18.0); MCH 30.5 pg (26.0-34.0); MCHC 32.3 g/dL (28.0-37.0); MCV 94.4 fL (80.0-100.0); MPV 7.3 fl. (7.2-11.1); RBC 2.56 mil/uL (4.50-6.00); RDW-CV 17.4 % (10.5-14.5); WBC 7.1 thou/uL (4.0-11.0)
[2020-01-03 12:20] LABS: ALBUMIN 1.9 g/dL (3.4-5.0); CALCIUM 8.1 mg/dL (8.5-10.1); CREATININE 9.9 mg/dL (0.6-1.3); MAGNESIUM 2.1 mg/dL (1.8-2.4); TOTAL BILIRUBIN 0.6 mg/dL (<0.1-1.0); TOTAL PROTEIN 6.7 g/dL (6.4-8.2)
[2020-01-03 12:24] LABS: POTASSIUM 6.5 mmol/L (3.5-5.1)
[2020-01-04 07:51] VITALS: BP 144/49
[2020-01-04 08:17] LABS: CALCIUM 8.5 mg/dL (8.5-10.1); CREATININE 9.2 mg/dL (0.6-1.3); POTASSIUM 5.7 mmol/L (3.5-5.1)
[2020-01-04 19:26] VITALS: BP 148/64
[2020-01-05 08:00] VITALS: BP 172/65
[2020-01-05 08:25] LABS: CALCIUM 8.7 mg/dL (8.5-10.1); POTASSIUM 5.9 mmol/L (3.5-5.1)
[2020-01-05 08:31] LABS: CREATININE 10.4 mg/dL (0.6-1.3)
[2020-01-05 19:00] VITALS: BP 155/59
[2020-01-06 08:00] VITALS: BP 143/69
[2020-01-06 20:35] VITALS: BP 136/55
[2020-01-07 08:00] VITALS: BP 168/62
[2020-01-07 20:33] VITALS: BP 143/57
[2020-01-08 08:00] VITALS: BP 140/55
[2020-01-09 08:00] VITALS: BP 129/42; BP 158/55
[2020-01-09 21:00] VITALS: BP 143/54
[2020-01-10 08:05] VITALS: BP 150/63
[2020-01-10 21:00] VITALS: BP 145/59
[2020-01-11 08:05] VITALS: BP 155/62
[2020-01-11 20:00] VITALS: BP 153/62
[2020-01-12 08:00] VITALS: BP 148/56
[2020-01-12 17:59] LABS: HEMATOCRIT 20.7 % (42.0-52.0); MCH 30.6 pg (26.0-34.0); MCHC 33.9 g/dL (28.0-37.0); MCV 90.2 fL (80.0-100.0); MPV 7.3 fl. (7.2-11.1); RBC 2.29 mil/uL (4.50-6.00); RDW-CV 15.1 % (10.5-14.5); WBC 6.4 thou/uL (4.0-11.0)
[2020-01-12 18:07] LABS: ALBUMIN 2.1 g/dL (3.4-5.0); CALCIUM 7.8 mg/dL (8.5-10.1); CREATININE 14.8 mg/dL (0.6-1.3); POTASSIUM 5.6 mmol/L (3.5-5.1); TOTAL BILIRUBIN 0.5 mg/dL (<0.1-1.0); TOTAL PROTEIN 6.7 g/dL (6.4-8.2)
[2020-01-12 19:00] VITALS: BP 148/62
[2020-01-13 08:00] VITALS: BP 145/61
[2020-01-13 19:00] VITALS: BP 141/63
[2020-01-14 19:00] VITALS: BP 162/58
[2020-01-15 04:38] LABS: MCH 30.7 pg (26.0-34.0); MCHC 34.3 g/dL (28.0-37.0); MCV 89.4 fL (80.0-100.0); MPV 6.7 fl. (7.2-11.1); RBC 2.2 mil/uL (4.50-6.00); RDW-CV 14.9 % (10.5-14.5); WBC 4.9 thou/uL (4.0-11.0)
[2020-01-15 05:40] LABS: HEMATOCRIT 19.6 % (42.0-52.0); HEMOGLOBIN 6.7 gm/dL (14.0-18.0)
[2020-01-15 08:00] VITALS: BP 150/60
--- NOTE | 2020-01-15 13:16 | OP ---
[facility] [address] [place] [address] OPERATIVE REPORT Name: LAURENTARTEM Contreras Room: [address] IN .R.#: [id number] Admission: 12/15/19 Attend Phys: Nando Robles MD Discharge: Date of : 59 Report #: [id number] THIS REPORT FOR: //name// cc: Pippa Rothman MD, Allison Louise MD ~ CC: Pippa Robles DATE OF SERVICE: 01/14/2020 PREOPERATIVE DIAGNOSIS: Thrombosed left upper extremity fistula. POSTOPERATIVE DIAGNOSIS: Thrombosed left upper extremity fistula. SURGEON: Rasheed Keith DO. CAMP MANAGER: None. PROCEDURES: 1. Ultrasound-guided access, left upper extremity AV fistula. 2. Catheter directed thrombectomy with AngioJet left upper extremity. 3. Angioplasty of cephalic vein, cephalic arch and subclavian vein with Bard Raritan 7 x 80 and 9 x 40 Raritan angioplasty balloons. 4. Peripheral fistulogram demonstrating severe stenosis of the inflow cephalic vein. 5. Tunneled dialysis catheter placement, right internal jugular vein. ESTIMATED BLOOD LOSS: Minimal. SPECIMEN: None. COMPLICATIONS: None. CONDITION: Stable. DISPOSITION: Floor. INDICATIONS FOR THE PROCEDURE AND CONSENT: The patient is a 65-year-old male who presented with thrombosed left upper extremity fistula and need for dialysis. Recommendation for catheter-directed thrombectomy was made. After risks and benefits were discussed, the patient wished to proceed, was consented and scheduled. PROCEDURE IN DETAIL: After timeout was performed, the patient was placed in supine position with sterile prep and drape of left upper extremity. Ultrasound was utilized to identify the cephalic vein just proximal to the antecubital [address] [address] OPERATIVE REPORT Name: ARTEM MANCILLA Room: [address] IN ..#: [id number] Admission: 12/15/19 Attend Phys: Nando Robles MD Discharge: Date of : 59 Report #: [id number] fossa and Seldinger technique used to place 6-Vincentian sheath. A Glidewire was advanced into the subclavian vein system without difficulty and the AngioJet catheter was used to instill TPA throughout the length of the thrombosed segment. This was allowed to sit for 20 minutes. The AngioJet was then used to perform thrombectomy throughout the length of the fistula and a channel was created. Repeat venogram demonstrated a patent fistula with significant residual thrombus lining the edges as well as within the previously placed stent. A 7 x 80 Raritan angioplasty balloon was then used to angioplasty entire length. There were multiple areas of compact wasting and critical wasting, especially within the cephalic arch segment and near his pacemaker leads. Secondary venogram demonstrated a patent vessel. However, there was residual areas of thrombus and stenosis within the stent. I then obtained a 9 x 40. As a longer balloon was not available, a 9 x 40 balloon was then used to angioplasty in 2 inflations, the inflow and outflow portions of the stent. Repeat venogram demonstrated the fistula to have rethrombosed. The patient was given additional 1000 units of heparin and attempts were made to repeat the thrombectomy with the AngioJet catheter. A channel was again established and repeat angioplasty with a 7 mm Raritan balloon was performed. This demonstrated severe critical stenosis near the area of the pacemaker lead. I assessed the situation for a possible covered stent, one was not available and a bare metal stent was not appropriate in this case given the pacemaker leads. Additionally, there was critical stenosis of the inflow, which would also need to be addressed and I felt like at this point, this was not a salvageable fistula situation. We then converted, reprepped and draped for a tunneled dialysis catheter. The ultrasound was then used to access the jugular vein and using Seldinger technique, the introducer sheath was applied. A counter incision was made on the anterior chest wall and the catheter tunneled and placed at the atriocaval junction. It was then secured in standard fashion. The catheter was then flushed and locked with heparinized saline and sterile dressings were applied. The patient tolerated the procedure well. Lap, needle, instrument counts correct. <ELECTRONICALLY SIGNED> By: Wojciech Hameed MD 01/15/20 1316 0954 1012Rasheed Keith DO /nt
[2020-01-15 20:38] VITALS: BP 163/56
[2020-01-16 04:48] LABS: ABSOLUTE BASOPHILS 0.1 thou/uL (0.0-0.2); ABSOLUTE EOSINOPHILS 0.1 thou/uL (0.0-0.7); ABSOLUTE LYMPHOCYTES 0.7 thou/uL (0.8-5.3); ABSOLUTE MONOCYTES 0.5 thou/uL (0.0-1.2); ABSOLUTE NEUTROPHILS 4.3 thou/uL (1.6-8.1); BASOPHILS 1.3 %; EOSINOPHILS 1.5 %; HEMATOCRIT 26.6 % (42.0-52.0); MCH 30.2 pg (26.0-34.0); MCHC 33.8 g/dL (28.0-37.0); MCV 89.2 fL (80.0-100.0); MONOCYTES 8.9 %; MPV 7.4 fl. (7.2-11.1); NUCLEATED RBCS 0 /100WBC; PLATELET COUNT* 520 thou/uL (150-400); POLYS 75.3 %; RBC 2.98 mil/uL (4.50-6.00); RDW-CV 14.4 % (10.5-14.5); WBC 5.7 thou/uL (4.0-11.0)
[2020-01-16 05:18] LABS: CALCIUM 7.8 mg/dL (8.5-10.1); CREATININE 6.3 mg/dL (0.6-1.3); POTASSIUM 3.5 mmol/L (3.5-5.1)
[2020-01-16 08:00] VITALS: BP 137/52
[2020-01-16 20:33] VITALS: BP 121/59
[2020-01-17 07:30] VITALS: BP 142/62
[2020-01-17] MEDS ORDERED: DULERA 100 MCG/13 GM INH ×2 (10:42→10:53)
[2020-01-17] MEDS ORDERED: EPOGEN2000 UNIT/ IV PUSH (10:56)
[2020-01-17] MEDS ORDERED: ALPRAZOLAM XR3 MG PO (10:59)
[2020-01-17] MEDS ORDERED: HUMALOG100 UNIT/1 SUBQ (11:00)
[2020-01-17 11:18] VITALS: BP 142/62
[2020-01-17 15:55] VITALS: BP 142/62
== END 2020-01-17 12:40 | DRG 628 ==
LOC: M.REH 16:49
PROVIDERS: Family Medicine; Internal Medicine; Internal Medicine Nephrology; ADMIT Physical Medicine & Rehabilitation; ATTEND Physical Medicine & Rehabilitation
PROC: 30233N1 Transfusion of Nonautologous Red Blood Cells into Peripheral Vein, Percutaneous Approach (ICD-10-PCS; principal; 2019-12-15)
PROC: 5A1D70Z Performance of Urinary Filtration, Intermittent, Less than 6 Hours Per Day (ICD-10-PCS; 2019-12-17)
PROC: 5A1D70Z Performance of Urinary Filtration, Intermittent, Less than 6 Hours Per Day (ICD-10-PCS; 2019-12-19)
PROC: 5A1D70Z Performance of Urinary Filtration, Intermittent, Less than 6 Hours Per Day (ICD-10-PCS; 2019-12-30)
PROC: 5A1D70Z Performance of Urinary Filtration, Intermittent, Less than 6 Hours Per Day (ICD-10-PCS; 2019-12-31)
PROC: 5A1D70Z Performance of Urinary Filtration, Intermittent, Less than 6 Hours Per Day (ICD-10-PCS; 2020-01-02)
PROC: 5A1D70Z Performance of Urinary Filtration, Intermittent, Less than 6 Hours Per Day (ICD-10-PCS; 2020-01-03)
PROC: 5A1D70Z Performance of Urinary Filtration, Intermittent, Less than 6 Hours Per Day (ICD-10-PCS; 2020-01-05)
PROC: 5A1D70Z Performance of Urinary Filtration, Intermittent, Less than 6 Hours Per Day (ICD-10-PCS; 2020-01-09)
PROC: B548ZZA Ultrasonography of Superior Vena Cava, Guidance (ICD-10-PCS; 2020-01-14)
PROC: 02HV33Z Insertion of Infusion Device into Superior Vena Cava, Percutaneous Approach (ICD-10-PCS; 2020-01-14)
PROC: 0JH63XZ Insertion of Tunneled Vascular Access Device into Chest Subcutaneous Tissue and Fascia, Percutaneous Approach (ICD-10-PCS; 2020-01-14)
PROC: 05CY3ZZ Extirpation of Matter from Upper Vein, Percutaneous Approach (ICD-10-PCS; 2020-01-14)
PROC: B51W1ZZ Fluoroscopy of Dialysis Shunt/Fistula using Low Osmolar Contrast (ICD-10-PCS; 2020-01-14)
PROC: 5A1D70Z Performance of Urinary Filtration, Intermittent, Less than 6 Hours Per Day (ICD-10-PCS; 2020-01-16)
DX: E11.621 Type 2 diabetes mellitus with foot ulcer (principal); A41.9 Sepsis, unspecified organism; G93.41 Metabolic encephalopathy; E43 Unspecified severe protein-calorie malnutrition; A41.2 Sepsis due to unspecified staphylococcus; M86.8X8 Other osteomyelitis, other site; L03.115 Cellulitis of right lower limb; E87.1 Hypo-osmolality and hyponatremia; I13.2 Hypertensive heart and chronic kidney disease with heart failure and with stage 5 chronic kidney disease, or end stage renal disease; E11.22 Type 2 diabetes mellitus with diabetic chronic kidney disease; N18.6 End stage renal disease; Z99.2 Dependence on renal dialysis; D63.8 Anemia in other chronic diseases classified elsewhere; I08.0 Rheumatic disorders of both mitral and aortic valves; E03.9 Hypothyroidism, unspecified; E11.51 Type 2 diabetes mellitus with diabetic peripheral angiopathy without gangrene; N25.81 Secondary hyperparathyroidism of renal origin; E11.69 Type 2 diabetes mellitus with other specified complication; I50.9 Heart failure, unspecified; E11.40 Type 2 diabetes mellitus with diabetic neuropathy, unspecified; Z20.828 Contact with and (suspected) exposure to other viral communicable diseases; I82.602 Acute embolism and thrombosis of unspecified veins of left upper extremity; Z79.4 Long term (current) use of insulin; Z82.49 Family history of ischemic heart disease and other diseases of the circulatory system; Z82.3 Family history of stroke

== ENCOUNTER 2020-02-14 17:16 | Inpatient (IN) | payer MEDICARE, OTHER ==
[~2020-02-14] VITALS: Ht 180.3 cm; Wt 81.6 kg
--- NOTE | ~2020-02-14 | CON ---
[address] [address] CONSULTATION Name: ARTEM MANCILLA Room: [address] ADM IN M.R.#: [id number] Admission: 02/14/20 Attend Phys: Jeana Vizcaino Discharge: Date of : 59 Report #: [id number] THIS REPORT FOR: cc: Pippa Rothman MD, Allison Louise MD ~ Chinedu Begum MD NEPHROLOGY CONSULTATION CONSULTING PHYSICIAN: Bharat Smiley MD REASON FOR CONSULTATION: End-stage kidney disease. HISTORY OF PRESENT ILLNESS: A 65-year-old gentleman admitted with respiratory failure. He missed his dialysis on Sunday and I believe his last dialysis was Sunday. He came in with signs and symptoms of fluid overload. Plans were made for him to dialyze urgently last night, but he developed worsening respiratory failure and was intubated. He did dialyze overnight and had about 2 kilos of fluid removed. He was hyperkalemic and dialyzed on a low potassium dialysate. His potassium was again high this morning and he is currently seen on dialysis, tolerating treatment well on a low potassium dialysate. REVIEW OF SYSTEMS: Constitutional, psych, heme, eyes, ENT, respiratory, cardiac, GI, , endocrine, all negative except as documented above. PAST MEDICAL HISTORY: End-stage kidney disease, permanent pacemaker, anemia of chronic disease, diabetic foot ulcer, aortic and mitral valve regurgitation, hypothyroidism, peripheral vascular disease, secondary hyperparathyroidism, insulin-dependent diabetes, right BKA in 12/2019. Secondary hyperparathyroidism, on sevelamer. CURRENT MEDICATIONS: Reviewed. SOCIAL HISTORY: No tobacco. FAMILY HISTORY: Not pertinent in this 65-year-old gentleman. PHYSICAL EXAMINATION: VITAL SIGNS: Blood pressure is 140/36, pulse 60, respirations 12, temperature 37.2. GENERAL: No distress. EYES: Closed. EARS: Externally normal. CARDIOVASCULAR: Regular rate. LUNGS: Diminished. ABDOMEN: [place] [address] CONSULTATION Name: ARTEM MANCILLA Room: [address] IN [facility].#: [id number] Admission: 02/14/20 Attend Phys: Jeana Vizcaino Discharge: Date of : 59 Report #: [id number] MUSCULOSKELETAL: Right BKA. Left lower extremity edema present. NEUROLOGIC: Intubated and sedated. LABORATORY DATA: White cell count 10.5, hemoglobin 7.8, platelets 495. Sodium 134, potassium 6.5, chloride 98, bicarbonate 24, BUN 56, creatinine 5.6, glucose 289, calcium 7.9, phosphorus 5.2. ASSESSMENT: 1. End-stage kidney disease, hemodialysis Sunday, Sunday and Sunday at the [facility]. 2. Hyperkalemia. 3. Volume overload. 4. Anemia of chronic disease. 5. Respiratory failure, respiratory acidosis. 6. Secondary hyperparathyroidism. 7. Peripheral vascular disease with right below-knee amputation, 12/2019. 8. Permanent pacemaker. 9. Hypothyroidism. 10. Secondary hyperparathyroidism, on sevelamer. 11. Insulin-dependent diabetes. PLAN: The patient is seen on dialysis, tolerating treatment well. We will use a low potassium dialysate and ultrafilter as tolerated. Hope to get a total of 5 kilos off for today's treatment and overnight treatment. I will plan dialysis again in the a.m. and follow along with you. Thank you for requesting my opinion in the care and management of this patient. By: [id number] Begum MD /nt
[~2020-02-14 17:16] MED LIST changes: +ALPRAZOLAM XR3 MG PO; +ASA81BEC PO; +EPOGEN2000 UNIT/ IV PUSH; +INSULIN LI100 UNIT/1 SUBQ; +LANTUS SUBQ; +MEGESTROL ACETA40 MG PO; +NAFCILLIN 2 GM A2 G1 IV
[2020-02-14 17:17] VITALS: BP 179/85
[2020-02-14] MEDS ORDERED: LANTUS SUBQ (17:25)
[2020-02-14] MEDS ORDERED: MEGESTROL ACETA40 MG PO (17:26)
[2020-02-14 17:53] LABS: HEMATOCRIT 31.6 % (42.0-52.0); HEMOGLOBIN 9.9 gm/dL (14.0-18.0); MCH 27.9 pg (26.0-34.0); MCHC 31.3 g/dL (28.0-37.0); MCV 89.2 fL (80.0-100.0); MPV 7.4 fl. (7.2-11.1); NUCLEATED RBCS 0 /100WBC; RBC 3.54 mil/uL (4.50-6.00); RDW-CV 15.3 % (10.5-14.5); WBC 10.6 thou/uL (4.0-11.0)
[2020-02-14 18:09] LABS: ANION GAP 15 mmol/L (7-16); BUN 82 mg/dL (7-18); CALCIUM 8.2 mg/dL (8.5-10.1); CHLORIDE 100 mmol/L (98-107); CO2 24 mmol/L (21-32); CREATININE 8.1 mg/dL (0.6-1.3); GLUCOSE 162 mg/dL (70-99); SODIUM 139 mmol/L (136-145)
[2020-02-14 18:10] LABS: POTASSIUM 6.4 mmol/L (3.5-5.1)
[2020-02-14 18:17] LABS: ALBUMIN 2.9 g/dL (3.4-5.0); ALKALINE PHOSPHATASE 162 U/L (46-116); SGOT 22 U/L (15-37); SGPT 22 U/L (30-65); TOTAL BILIRUBIN 0.4 mg/dL (<0.1-1.0); TOTAL PROTEIN 7.6 g/dL (6.4-8.2)
[2020-02-14 18:35] LABS: ABSOLUTE EOSINOPHILS 0.2 thou/uL (0.0-0.7); ABSOLUTE LYMPHOCYTES 0.8 thou/uL (0.8-5.3); ABSOLUTE MONOCYTES 0.1 thou/uL (0.0-1.2); ABSOLUTE NEUTROPHILS 9.4 thou/uL (1.6-8.1); PLATELET ESTIMATE INCREASED
[2020-02-14 18:38] LABS: LARGE PLATELETS RARE
[2020-02-14 18:39] LABS: NT-PRO BRAIN NAT PEPTIDE > 35000 pg/mL (<300); PLATELET COUNT* 569 thou/uL (150-400)
[2020-02-14 19:24] LABS: PCO2 59.8 mmHg (35.0-45.0); PO2 314.9 mmHg (75.0-100.0)
[2020-02-14 20:03] LABS: APTT 25.3 Seconds (25.0-31.3); INR 1.2; PROTIME 12.2 Seconds (9.20-11.50)
[2020-02-14 20:25] VITALS: BP 186/79
[2020-02-14 21:00] VITALS: BP 120/51
[2020-02-14 22:00] VITALS: BP 121/60
[2020-02-14 23:12] LABS: HEMATOCRIT 25.9 % (42.0-52.0); HEMOGLOBIN 8.5 gm/dL (14.0-18.0)
[2020-02-14 23:41] LABS: INR 1.1; PROTIME 11.9 Seconds (9.20-11.50)
[2020-02-14 23:46] LABS: APTT 37.8 Seconds (25.0-31.3)
[2020-02-15] VITALS (21 sets, daily range): BP systolic 95–204; BP diastolic 36–69
[2020-02-15 04:06] LABS: HEMATOCRIT 23.8 % (42.0-52.0); HEMOGLOBIN 7.8 gm/dL (14.0-18.0); MCH 28.6 pg (26.0-34.0); MCHC 32.7 g/dL (28.0-37.0); MCV 87.5 fL (80.0-100.0); MPV 7.1 fl. (7.2-11.1); RBC 2.72 mil/uL (4.50-6.00); RDW-CV 15.3 % (10.5-14.5); WBC 10.5 thou/uL (4.0-11.0)
[2020-02-15 04:23] LABS: CALCIUM 7.9 mg/dL (8.5-10.1); MAGNESIUM 2.1 mg/dL (1.8-2.4); PHOSPHORUS* 5.2 mg/dL (2.5-4.9)
[2020-02-15 04:24] LABS: CREATININE 5.6 mg/dL (0.6-1.3)
[2020-02-15 04:25] LABS: POTASSIUM 6.5 mmol/L (3.5-5.1)
[2020-02-15 10:11] LABS: BE -0.5 mmol/L (-2 to +3); PO2 111.2 mmHg (75.0-100.0); pH 7.408 (7.340-7.450)
--- NOTE | 2020-02-15 14:06 | EKG ---
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 President Integrated: : 1955 Requested By: Gomez Beard Order Number: [id number] MD: Simeon Paniagua Measurements Intervals [place] Rate: 90 P: 0 WV: 182 QRS: -79 QRSD: 162 T: 88 QT: 449 QTc: 550 Interpretive Statements Ventricular-paced complexes No further analysis attempted due to paced rhythm Baseline wander in lead(s) V3 Compared to ECG 11/26/2019 08:37:48 Atrial-sensed ventricular-paced complex(es) or rhythm no longer present Electronically Signed On 02-15-2020 14:06:20 BIOLOGICAL TECHNICAL OFFICER by Simeon Paniagua [email or web address] <ELECTRONICALLY SIGNED> By: Mohan Paniagua MD, FACC 02/15/20 1406 21 21 Mohan Paniagua MD, [facility] /EPI
--- NOTE | 2020-02-15 14:07 | EKG ---
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: TDS : 1955 Requested By: Dhara Aguillon Order Number: [id number] MD: Simeon Paniagua Measurements Intervals [place] Rate: 96 P: 62 KS: 174 QRS: -78 QRSD: 166 T: 95 QT: 433 QTc: 548 Interpretive Statements Ventricular-paced rhythm No further analysis attempted due to paced rhythm Baseline wander in lead(s) I,II,aVR Compared to ECG 02/14/2020 17:22:04 No significant changes Electronically Signed On 02-15-2020 14:07:14 PROPOSAL DIRECTOR by Simeon Paniagua [email or web address] <ELECTRONICALLY SIGNED> By: Mohan Paniagua MD, FACC 02/15/20 1407 13 13 Mohan Paniagua MD, [facility] /EPI
[2020-02-15 16:18] LABS: BE 4.2 mmol/L (-2 to +3); PCO2 36.6 mmHg (35.0-45.0); PO2 99.2 mmHg (75.0-100.0); pH 7.496 (7.340-7.450)
[2020-02-16] VITALS (21 sets, daily range): BP systolic 96–181; BP diastolic 48–77
[2020-02-16 06:38] LABS: HEMATOCRIT 24.3 % (42.0-52.0); HEMOGLOBIN 7.7 gm/dL (14.0-18.0); MCH 27.7 pg (26.0-34.0); MCHC 31.8 g/dL (28.0-37.0); MCV 86.9 fL (80.0-100.0); MPV 7.1 fl. (7.2-11.1); RBC 2.8 mil/uL (4.50-6.00); RDW-CV 15.4 % (10.5-14.5); WBC 11.5 thou/uL (4.0-11.0)
[2020-02-16 06:45] LABS: CALCIUM 7.5 mg/dL (8.5-10.1); CREATININE 4.9 mg/dL (0.6-1.3); POTASSIUM 4.9 mmol/L (3.5-5.1)
[2020-02-17] VITALS (13 sets, daily range): BP systolic 129–163; BP diastolic 59–86
[2020-02-17 06:33] LABS: ABSOLUTE BASOPHILS 0.1 thou/uL (0.0-0.2); ABSOLUTE EOSINOPHILS 0.2 thou/uL (0.0-0.7); ABSOLUTE LYMPHOCYTES 1.5 thou/uL (0.8-5.3); ABSOLUTE MONOCYTES 0.6 thou/uL (0.0-1.2); ABSOLUTE NEUTROPHILS 5.8 thou/uL (1.6-8.1); BASOPHILS 0.8 %; EOSINOPHILS 2.1 %; HEMATOCRIT 25.6 % (42.0-52.0); HEMOGLOBIN 8.2 gm/dL (14.0-18.0); MCH 28.1 pg (26.0-34.0); MCHC 32.1 g/dL (28.0-37.0); MCV 87.6 fL (80.0-100.0); MONOCYTES 7.5 %; MPV 6.8 fl. (7.2-11.1); NUCLEATED RBCS 0 /100WBC; PLATELET COUNT* 566 thou/uL (150-400); POLYS 71.6 %; RBC 2.92 mil/uL (4.50-6.00); RDW-CV 15.7 % (10.5-14.5); WBC 8.2 thou/uL (4.0-11.0)
[2020-02-17 07:37] LABS: ALBUMIN 2.1 g/dL (3.4-5.0); CALCIUM 7.3 mg/dL (8.5-10.1); POTASSIUM 4.6 mmol/L (3.5-5.1); TOTAL BILIRUBIN 0.4 mg/dL (<0.1-1.0); TOTAL PROTEIN 6.6 g/dL (6.4-8.2)
[2020-02-17 07:38] LABS: CREATININE 3.4 mg/dL (0.6-1.3)
[2020-02-18] VITALS (7 sets, daily range): BP systolic 154–180; BP diastolic 60–70
[2020-02-18 04:07] LABS: ABSOLUTE BASOPHILS 0.1 thou/uL (0.0-0.2); ABSOLUTE EOSINOPHILS 0.3 thou/uL (0.0-0.7); ABSOLUTE LYMPHOCYTES 1.3 thou/uL (0.8-5.3); ABSOLUTE MONOCYTES 0.6 thou/uL (0.0-1.2); ABSOLUTE NEUTROPHILS 5.3 thou/uL (1.6-8.1); BASOPHILS 0.8 %; EOSINOPHILS 4.3 %; HEMATOCRIT 23.3 % (42.0-52.0); HEMOGLOBIN 7.6 gm/dL (14.0-18.0); LYMPHOCYTES 17.6 %; MCH 28.2 pg (26.0-34.0); MCHC 32.7 g/dL (28.0-37.0); MCV 86.3 fL (80.0-100.0); MONOCYTES 7.4 %; MPV 7.2 fl. (7.2-11.1); NUCLEATED RBCS 0 /100WBC; PLATELET COUNT* 531 thou/uL (150-400); POLYS 69.9 %; RDW-CV 15.4 % (10.5-14.5); WBC 7.6 thou/uL (4.0-11.0)
[2020-02-18 05:02] LABS: CALCIUM 6.8 mg/dL (8.5-10.1); POTASSIUM 4.8 mmol/L (3.5-5.1)
[2020-02-18 05:43] LABS: CREATININE 6.7 mg/dL (0.6-1.3)
[2020-02-18] MEDS ORDERED: AUGMENTIN 875-1 EACH PO (12:34)
== END 2020-02-18 16:05 | disposition home health service (06) | DRG 208 ==
LOC: M.ERS 17:16 → M.ICU 18:07 → M.TBA-ER 18:07 → M.ICU 18:58 → M.2W 02-17 10:20
PROVIDERS: Family Medicine; Internal Medicine; Pediatrics; Personal Emergency Response Attendant; ADMIT Internal Medicine; ATTEND Internal Medicine
DX: J96.01 Acute respiratory failure with hypoxia (principal); J69.0 Pneumonitis due to inhalation of food and vomit; N18.6 End stage renal disease; I13.2 Hypertensive heart and chronic kidney disease with heart failure and with stage 5 chronic kidney disease, or end stage renal disease; E87.2 Acidosis; I50.32 Chronic diastolic (congestive) heart failure; J96.02 Acute respiratory failure with hypercapnia; E87.5 Hyperkalemia; D63.1 Anemia in chronic kidney disease; E21.1 Secondary hyperparathyroidism, not elsewhere classified; E03.9 Hypothyroidism, unspecified; E11.22 Type 2 diabetes mellitus with diabetic chronic kidney disease; E11.51 Type 2 diabetes mellitus with diabetic peripheral angiopathy without gangrene; I08.0 Rheumatic disorders of both mitral and aortic valves; E11.40 Type 2 diabetes mellitus with diabetic neuropathy, unspecified; Z20.828 Contact with and (suspected) exposure to other viral communicable diseases; Z99.2 Dependence on renal dialysis; Z79.4 Long term (current) use of insulin; Z79.82 Long term (current) use of aspirin; Z79.899 Other long term (current) drug therapy; Z89.511 Acquired absence of right leg below knee; Z87.891 Personal history of nicotine dependence; Z91.19 Patient's noncompliance with other medical treatment and regimen; Z28.21 Immunization not carried out because of patient refusal

== ENCOUNTER 2020-08-08 21:00 | Inpatient (IN) | payer MEDICARE, OTHER ==
[~2020-08-08] VITALS: Ht 180.3 cm; Wt 76.2 kg
[~2020-08-08 21:00] MED LIST changes: +AUGMENTIN 875-1 EACH PO
[2020-08-08 21:05] VITALS: BP 198/98
[2020-08-08] MEDS ORDERED: CARDURA2 MG PO (21:09)
[2020-08-08] MEDS ORDERED: BUMEX2 MG PO (21:09)
[2020-08-08] MEDS ORDERED: LEVOTHYROXINE125 MC1 PO (21:09)
[2020-08-08] MEDS ORDERED: NEURONTIN 300M300 M2 PO (21:09)
[2020-08-08] MEDS ORDERED: PROTONIX40 M2 PO (21:09)
[2020-08-08] MEDS ORDERED: SIMVASTATIN40 MG PO (21:10)
[2020-08-08] MEDS ORDERED: PERFOROMIS20 MCG/2 M INH (21:10)
[2020-08-08] MEDS ORDERED: LEVEMIR FL100 UNIT/2 SUBQ (21:11)
[2020-08-08] MEDS ORDERED: PROAIR HFA8.5 GM INH (21:11)
[2020-08-08] MEDS ORDERED: NOVOLOG MI100 UNIT/M SUBQ (21:11)
[2020-08-08 22:09] LABS: HEMATOCRIT 32.1 % (42.0-52.0); HEMOGLOBIN 10.9 gm/dL (14.0-18.0); MCH 30.4 pg (26.0-34.0); MCHC 33.9 g/dL (28.0-37.0); MCV 89.7 fL (80.0-100.0); MPV 7.7 fl. (7.2-11.1); NUCLEATED RBCS 0 /100WBC; PLATELET COUNT* 368 thou/uL (150-400); RBC 3.58 mil/uL (4.50-6.00); RDW-CV 15.9 % (10.5-14.5); WBC 9.3 thou/uL (4.0-11.0)
[2020-08-08 22:21] LABS: ANION GAP 9 mmol/L (7-16); BUN 35 mg/dL (7-18); CALCIUM 7.7 mg/dL (8.5-10.1); CHLORIDE 93 mmol/L (98-107); CO2 28 mmol/L (21-32); CREATININE 5.3 mg/dL (0.6-1.3); POTASSIUM 4.2 mmol/L (3.5-5.1); SODIUM 130 mmol/L (136-145)
[2020-08-08 22:23] LABS: GLUCOSE 602 mg/dL (70-99)
[2020-08-08 22:34] LABS: ALBUMIN 2.8 g/dL (3.4-5.0); ALKALINE PHOSPHATASE 139 U/L (46-116); NT-PRO BRAIN NAT PEPTIDE > 35000 pg/mL (<300); SGOT 7 U/L (15-37); TOTAL BILIRUBIN 0.3 mg/dL (<0.1-1.0); TOTAL PROTEIN 6.7 g/dL (6.4-8.2)
[2020-08-08 22:35] LABS: SGPT < 6 U/L (30-65)
[2020-08-08 23:17] LABS: BE 1.8 mmol/L (-2 to +3); PCO2 VENOUS 46.3 mmHg (41.0-51.0); PO2 VENOUS 47.3 mmHg (35.0-45.0)
[2020-08-08 23:44] LABS: ABSOLUTE BASOPHILS 0.1 thou/uL (0.0-0.2); ABSOLUTE LYMPHOCYTES 0.7 thou/uL (0.8-5.3); ABSOLUTE MONOCYTES 0.3 thou/uL (0.0-1.2); ABSOLUTE NEUTROPHILS 8.2 thou/uL (1.6-8.1)
[2020-08-08 23:45] LABS: PLATELET ESTIMATE ADEQUATE; POLYCHROMASIA 1+
[2020-08-09 01:00] VITALS: BP 159/77
[2020-08-09] MEDS ORDERED: ASA81BEC PO (01:31)
[2020-08-09] MEDS ORDERED: SERTRALINE HCL100 MG (01:34)
[2020-08-09] MEDS ORDERED: VITAMIN C250 MG PO (01:38)
[2020-08-09] MEDS ORDERED: RENAL-VITE TAB0.8 MG PO (01:40)
[2020-08-09 04:00] VITALS: BP 155/67
[2020-08-09 08:09] VITALS: BP 152/65
[2020-08-09 10:23] LABS: CHOLESTEROL 95 mg/dL (<200); HDL CHOLESTEROL 34 mg/dL (>40); LDL CHOLESTEROL 46 mg/dL (<100); TC:HDL 2.8 Ratio (Not establshd); TRIGLYCERIDE 76 mg/dL (<150); VLDL 15 mg/dL (<40)
[2020-08-09 10:25] LABS: SERUM ASSESSMENT Clear
[2020-08-09 12:00] VITALS: BP 135/65
--- NOTE | 2020-08-09 13:57 | EKG ---
[place] [address] ELECTROCARDIOGRAM REPORT Name: ARTEM MANCILLA Room: [address] ADM IN .R.#: [id number] Admission: 08/09/20 Attend Phys: Alycia Suresh Discharge: Date of : 59 Date of Service: 08/08/202132 Report #: [id number] THIS REPORT FOR: //name// [facility] ED Test Date: 2020-08-08 Test Time: 21:33:52 Pat Name: ARTEM MANCILLA Department: Room: [facility] Gender: M Physician [facility] : 1955 Requested By: Dhara Aguillon Order Number: [id number] MD: Xu Cornelius Measurements Intervals [place] Rate: 92 P: 82 IN: 153 QRS: -68 QRSD: 172 T: 103 QT: 451 QTc: 559 Interpretive Statements Atrial-sensed ventricular-paced complexes No further analysis attempted due to paced rhythm Compared to ECG 02/14/2020 19:14:01 No significant changes Electronically Signed On 08-09-2020 13:57:30 CDT by Xu Cornelius [email or web address] <ELECTRONICALLY SIGNED> By: Xu Cornelius MD, [facility] 08/09/20 1357 32 32 Xu Cornelius MD, [facility] /EPI
[2020-08-09 14:09] LABS: ABSOLUTE EOSINOPHILS 0.2 thou/uL (0.0-0.7); ABSOLUTE LYMPHOCYTES 1.1 thou/uL (0.8-5.3); ABSOLUTE MONOCYTES 0.4 thou/uL (0.0-1.2); BASOPHILS 0.2 %; EOSINOPHILS 2.9 %; HEMOGLOBIN 10.6 gm/dL (14.0-18.0); LYMPHOCYTES 16.4 %; MCH 30.1 pg (26.0-34.0); MCHC 34.1 g/dL (28.0-37.0); MCV 88.2 fL (80.0-100.0); MONOCYTES 5.4 %; MPV 7.6 fl. (7.2-11.1); NUCLEATED RBCS 0 /100WBC; PLATELET COUNT* 388 thou/uL (150-400); POLYS 75.1 %; RBC 3.51 mil/uL (4.50-6.00); WBC 6.7 thou/uL (4.0-11.0)
[2020-08-09 14:14] LABS: CALCIUM 8.1 mg/dL (8.5-10.1)
[2020-08-09 14:15] LABS: CREATININE 6.4 mg/dL (0.6-1.3)
--- NOTE | 2020-08-09 16:39 | 2DMMODE ---
[place] [address] 2 D/M-MODE ECHOCARDIOGRAM Name: ARTEM MANCILLA Room: [address] ADM IN [facility]#: [id number] Admission: 08/09/20 Attend Phys: Alycia Suresh Discharge: Date of : 59 Date of Service: 08/09/20 1638 Report #: [id number] THIS REPORT FOR: cc: Pippa Rothman MD, Allison Louise MD Holkins,Xu Claudio MD [facility] ~ APPROVED REPORT Study performed: 08/09/2020 14:50:06 EXAM: Limited 2D Echocardiogram Patient Location: In-Patient Room #: [facility] Status: routine BSA: 1.95 HR: 63 bpm BP: 152/65 mmHg Rhythm: NSR Other Information Study Quality: Good Indications Dyspnea 2D Dimensions IVSd: 9.44 (7-11mm) LVOT Diam: 19.92 (18-24mm) LVDd: 53.81 mm LVPWs: 15.58 mm PWd: 8.11 (7-11mm) LVDs: 36.32 (25-40mm) Aortic Root: 33.75 mm Volumes Left Atrial Volume (Systole) LA ESV Index: 50.20 mL/m2 Aortic Valve AoV Peak Jacques.: 1.86 m/s AO Peak Gr.: 13.81 mmHg LVOT Max P.14 mmHg AO Mean Gr.: 8.31 mmHg LVOT Mean P.27 mmHg LVOT Max V: 0.73 m/s AO V2 VTI: 43.59 cm LVOT Mean V: 0.54 m/s NAM (VTI): 1.32 cm2 LVOT V1 VTI: 18.42 [place] [address] 2 D/M-MODE ECHOCARDIOGRAM Name: ARTEM MANCILLA Room: [address] IN ..#: [id number] Admission: 08/09/20 Attend Phys: Alycia Suresh Discharge: Date of : 59 Date of Service: 08/09/20 1638 Report #: [id number] Tricuspid Valve RAP Estimate: 5.00 mmHg TR Peak Gr.: 36.75 mmHg RVSP: 41.00 mmHg PA Pressure: 41.00 mmHg Left Ventricle The left ventricle is normal size. There is distal septal and anteroapical hypo-akinesis. Mild concentric left ventricular hypertrophy. Left ventricular systolic function is mildly decreased. LVEF is 45%. Right Ventricle The right ventricle is normal size. The right ventricular systolic function is normal. Pacemaker lead is present in the right ventricle. Atria Left atrium is moderately dilated. The right atrium size is normal. Aortic Valve Mild aortic valve sclerosis. Mild aortic regurgitation. No hemodynamically significant valvular aortic stenosis. Mitral Valve The mitral valve is normal in structure. Mild mitral regurgitation. No evidence of mitral valve stenosis. Tricuspid Valve The tricuspid valve is normal in structure. Mild tricuspid regurgitation. Mild pulmonary hypertension. Pulmonic Valve The pulmonary valve is normal in structure. Trace pulmonic regurgitation. Great Vessels The aortic root is normal in size. IVC is normal in size and collapses >50% with inspiration. Pericardium There is no pericardial effusion. <Conclusion> The left ventricle is normal size. Mild concentric left ventricular hypertrophy. Left ventricular systolic function [place] [address] 2 D/M-MODE ECHOCARDIOGRAM Name: MORENAIldaARTEM G Room: [address] IN [facility].#: [id number] Admission: 08/09/20 Attend Phys: Alycia Suresh Discharge: Date of : 59 Date of Service: 08/09/20 1638 Report #: [id number] LVEF is 45%. The right ventricle is normal size. The right atrium size is normal. Mild aortic valve sclerosis. Mild aortic regurgitation. No hemodynamically significant valvular aortic stenosis. The mitral valve is normal in structure. Mild mitral regurgitation. The tricuspid valve is normal in structure. Mild tricuspid regurgitation. Mild pulmonary hypertension. IVC is normal in size and collapses >50% with inspiration. There is no pericardial effusion. There is distal septal and anteroapical hypo-akinesis. <ELECTRONICALLY SIGNED> By: Xu Cornelius MD, FACC 08/09/20 1638 1638 1638 Xu Cornelius MD, FACC /INF
[2020-08-09 20:00] VITALS: BP 117/55
[2020-08-09 23:06] LABS: GLYCOHEMOGLOBIN (HGB A1C) 9.6 % (4.8-5.6)
[2020-08-10 00:14] VITALS: BP 124/52
[2020-08-10 04:00] VITALS: BP 128/52
[2020-08-10 08:33] VITALS: BP 147/66
[2020-08-10 11:26] LABS: ANION GAP 4 mmol/L (7-16); BUN 36 mg/dL (7-18); CALCIUM 7.7 mg/dL (8.5-10.1); CHLORIDE 103 mmol/L (98-107); CO2 30 mmol/L (21-32); GLUCOSE 150 mg/dL (70-99); POTASSIUM 4.8 mmol/L (3.5-5.1); SODIUM 137 mmol/L (136-145); TROPONIN-I LEVEL <0.06 ng/mL (<0.06)
[2020-08-10 11:28] LABS: CREATININE 5.2 mg/dL (0.6-1.3)
[2020-08-10 16:00] VITALS: BP 148/56
[2020-08-10 20:00] VITALS: BP 158/66
[2020-08-11] VITALS (7 sets, daily range): BP systolic 126–148; BP diastolic 50–97
[2020-08-11 05:08] LABS: ABSOLUTE BASOPHILS 0.1 thou/uL (0.0-0.2); ABSOLUTE EOSINOPHILS 0.2 thou/uL (0.0-0.7); ABSOLUTE LYMPHOCYTES 0.8 thou/uL (0.8-5.3); ABSOLUTE MONOCYTES 0.4 thou/uL (0.0-1.2); ABSOLUTE NEUTROPHILS 4.9 thou/uL (1.6-8.1); BASOPHILS 1.2 %; EOSINOPHILS 2.6 %; HEMATOCRIT 29.4 % (42.0-52.0); HEMOGLOBIN 9.9 gm/dL (14.0-18.0); LYMPHOCYTES 12.7 %; MCHC 33.8 g/dL (28.0-37.0); MCV 88.9 fL (80.0-100.0); MONOCYTES 6.2 %; MPV 7.8 fl. (7.2-11.1); NUCLEATED RBCS 0 /100WBC; PLATELET COUNT* 382 thou/uL (150-400); POLYS 77.3 %; RBC 3.31 mil/uL (4.50-6.00); RDW-CV 16.3 % (10.5-14.5); WBC 6.3 thou/uL (4.0-11.0)
[2020-08-11 05:41] LABS: ALBUMIN 2.6 g/dL (3.4-5.0); ALKALINE PHOSPHATASE 100 U/L (46-116); ANION GAP 6 mmol/L (7-16); BUN 34 mg/dL (7-18); CALCIUM 7.8 mg/dL (8.5-10.1); CHLORIDE 102 mmol/L (98-107); CO2 30 mmol/L (21-32); CREATININE 4.7 mg/dL (0.6-1.3); GLUCOSE 155 mg/dL (70-99); POTASSIUM 4.8 mmol/L (3.5-5.1); SGOT 9 U/L (15-37); SGPT < 6 U/L (30-65); SODIUM 138 mmol/L (136-145); TOTAL BILIRUBIN 0.2 mg/dL (<0.1-1.0); TOTAL PROTEIN 6.4 g/dL (6.4-8.2)
--- NOTE | 2020-08-11 10:09 | CARDNUC ---
[place] [address] CARDIAC NUCLEAR IMAGING REPORT Name: LAURENTARTEM Diane Room: [address] IN [facility]#: [id number] Admission: 08/09/20 Attend Phys: Alycia Suresh Discharge: Date of : 59 Date of Service: 08/11/20 1008 Report #: [id number] THIS REPORT FOR: cc: Pippa Rothman MD, Allison Louise MD Liston, Michael J. MD [facility] ~ APPROVED REPORT Study performed: 08/11/2020 08:25:41 Exam: Nuclear Stress Test Indication: Dyspnea Patient Location: In-Patient Room #: 228 Stress Tech: Shelly Miller Stress Nurse: Charis Melton RN Ht: 5 ft 11 in Wt: 168 lbs BSA: 1.96 m2 BMI: 23.42 Medical History Medical History: heart failure, esrd/dialysis rle amputation, Diabetes, HTN, Hyperlipidemia Medications: asa-81, cardure,, lasix, atorvastatin, heparin Allergies: No known drug allergies Cardiac Risk Factors: HTN, Hyperlipidemia, DM Previous Cardiac Procedures: PPM Exercise History: Sedentary Stress Test Details Stress Test: Pharmacologic stress testing performed using 0.4 mg of regadenoson per 5 mL given IV over 10 seconds. Reason for pharmacologic stress test: PPM. HR Resting HR: 63 bpm Max Heart Rate (APMHR): 157 bpm Max HR Achieved: 65 bpm Target HR (85% APMHR): 133 bpm % of APMHR: 41 Recovery HR: 63 bpm BP Resting BP: 117/70 mmHg Max BP: 113/52 [place] [address] CARDIAC NUCLEAR IMAGING REPORT Name: ARTEM MANCILLA Room: [address]#: [id number] Admission: 08/09/20 Attend Phys: Alycia Suresh Discharge: Date of : 59 Date of Service: 08/11/20 1008 Report #: [id number] ECG Resting ECG: AV paced rhythm Stress ECG: AV paced rhythm ST Change: None Arrhythmia: None Recovery ECG: AV paced rhythm Recovery ST Change: None Recovery Arrhythmia: None Clinical Reason for Termination: Completed protocol The patient tolerated Lexiscan infusion without significant cardiac symptoms. Nurse Comments pt has amputated lag and cannot walk on treadmill Stress ECG Conclusion Shows an AV sequentially paced rhythm. EKGs obtained during and post Lexiscan infusion show sequential AV pacing. There were no stress-induced arrhythmias. There were no significant T-segment changes. NM EXAM: Myocardial Perfusion REST/STRESS Imaging Protocol: Rest Tc-99m/Stress Tc-99m 2 days Resting Data Rest SPECT myocardial perfusion imaging was performed in supine position 30 minutes following the intravenous injection of 8.2 mCi of Tc-99m Sestamibi. Time of rest injection: 14:40 Date: 08/10/2020 The images were gated to evaluate regional wall motion and calculate left ventricular ejection fraction. Administration Route: IV Administration Site: Right AC Pharmacologic Stress Pharmacologic stress test was performed by injecting Regadenoson 0.4 mg IV push followed by the intravenous injection of 31.2 mCi of Tc-99m Sestamibi. Time of stress injection: 08:40 Date: 08/11/2020 Administration Route: IV Administration Site: Right AC Heart Rate at time of stress injection: 65 bpm. Gated Stress SPECT was performed 40 [place] [address] CARDIAC NUCLEAR IMAGING REPORT Name: MORENAIldaARTEM G Room: [address] IN [facility].#: [id number] Admission: 08/09/20 Attend Phys: Alycia Suresh Discharge: Date of : 59 Date of Service: 08/11/20 1008 Report #: [id number] injection. The images were gated to evaluate regional wall motion and calculate left ventricular ejection fraction. Prone imaging was performed. Study Quality Study: Good Artifact: Mild Diaphragmatic artifact Study Data At rest, the left ventricular ejection fraction was 31%.. Post stress, the left ventricular ejection was 46%.. TID = 0.88. 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 There appears to be a moderate region of kartik-infarct ischemia. Wall Motion Global LV systolic function is moderate to severely decreased. Inferior wall is severely hypokinetic. The apex appears akinetic. Nuclear Conclusion ECG Findings: non-diagnostic Clinical Findings: negative for ischemia Nuclear Findings: positive for ischemia Exercise Capacity: not assessed Left Ventricular Function: abnormal Risk Study: high Perfusion images suggest prior inferior infarct with kartik-infarct ischemia. LV function is moderate to severely decreased with wall motion abnormalities as outlined above. This is a high risk study. <Conclusion> Shows an AV sequentially paced rhythm. EKGs obtained during and post Lexiscan infusion show sequential AV pacing. There were no stress-induced arrhythmias. There were no significant T-segment changes. <ELECTRONICALLY SIGNED> By: Dominguez Paula MD, FACC 08/11/20 1008 1008 1008 Dominguez Paula MD, FACC /INF
--- NOTE | 2020-08-11 16:14 | CARD ---
[address] [address] CARDIAC CATH REPORT Name: ARTEM MANCILLA Room: [facility] IN [facility]#: [id number] Admission: 08/09/20 Attend Phys: Colin Meraz Discharge: Date of : 59 Report #: [id number] THIS REPORT FOR: cc: Pippa Rothman MD, Allison Louise MD Holkins, John M. MD [facility] ~ APPROVED REPORT Study performed: 08/11/2020 14:17:58 Patient Details Patient Status: In-Patient Room #: 228 The patient is a 65 year-old male Event Personnel Xu Cornelius Division Field Inspector, Maritza Shepherd RN Net Washer, Rani Lynne RTR Monitor, Kelsea [place] RTR Scrub Procedures Performed Art Access - R femoral artery , Left Heart Cath w/or w/o Coronaries LHC , Hemostasis w/ Mynx Indication Dyspnea, Heart failure Risk Factors Hypercholesterolemia, HypertensionRenal Failure, Diabetes Procedure Narrative The patient was brought electively to the Cardiac Catheterization Laboratory and was prepped and draped in a sterile manner. The right femoral was infiltrated with 2% Lidocaine subcutaneous anesthesia. IV conscious sedation was used throughout procedure with appropriate monitoring and was performed in the presence of a registered nurse who was an independent trained observer other than the physician performing the procedure. A 6F Plain Dealing sheath was inserted into the right femoral artery. Coronary angiography was performed using coronary diagnostic catheters. The right coronary system was accessed and visualized with a 6F JR4 catheter. The left coronary system was accessed and visualized with a 6F JL4 catheter. The left ventricle was accessed and visualized with a 6F Pigtail catheter. Left ventricular/Aortic Valve gradient assessed via catheter pullback. Pre-demployment femoral angiogram was performed . [place] [address] CARDIAC CATH REPORT Name: ARTEM MANCILLA Room: [address]#: [id number] Admission: 08/09/20 Attend Phys: Colin Meraz Discharge: Date of : 59 Report #: [id number] deployed with a 6 Fr Mynx. The patient tolerated the procedure well and there were no complications associated with the procedure. There was no hematoma. Intraoperative Conscious Sedation Sedation start time: 14:33 Case end Time: 15:07 Fentanyl 50 mcg Versed 2 mg Fluoro Time: 2.6 minutes Dose: DAP 79246 cGycm2 522 mGy Contrast Type and Amount: Visipaque 75 ml Coronary Angiography The patient's coronary anatomy is right dominant. Diagnostic Cath Left Main 0% narrowing LAD 30% mid vessel narrowing Circumflex 30% mid vessel narrowing with 40% narrowing of the proximal portion of the first marginal branch Right Coronary Dominant vessel with 40% diffuse mid vessel narrowing Left Ventriculography Left Ventriculography was not performed. Hemodynamics The aortic pressure is 141/45 mmHg with a mean of 71 mmHg. The left ventricular pressure is 143/2 mmHg with a mean of mmHg. The left ventricular end diastolic pressure is 18 mmHg. Conclusion 1. Modest coronary artery disease characterized by the following: A 30% mid LAD narrowing B 30% mid circumflex narrowing with 40% proximal first marginal branch narrowing C dominant right coronary artery with 40% diffuse mid vessel narrowing 2. Mild elevation of left ventricular end-diastolic [place] [address] CARDIAC CATH REPORT Name: ARTEM MANCILLA Room: [address] IN ..#: [id number] Admission: 08/09/20 Attend Phys: Colin Meraz Discharge: Date of : 59 Report #: [id number] Recommendations Cardiac Risk Reduction Program Aggressive Medical Therapy Medical Therapy Diagnostic Cath Approved by: Xu Cornelius MD Date/Time: 08/11/2020 16:12:48 <ELECTRONICALLY SIGNED> By: Xu Cornelius MD, [facility] 08/11/20 1614 1614 1614Xu Cornelius MD, FAC /INF
[2020-08-12] VITALS: BP 144/63
[2020-08-12 04:00] VITALS: BP 165/63
[2020-08-12 04:30] LABS: ABSOLUTE BASOPHILS 0.1 thou/uL (0.0-0.2); ABSOLUTE EOSINOPHILS 0.2 thou/uL (0.0-0.7); ABSOLUTE LYMPHOCYTES 0.8 thou/uL (0.8-5.3); ABSOLUTE MONOCYTES 0.3 thou/uL (0.0-1.2); ABSOLUTE NEUTROPHILS 4.1 thou/uL (1.6-8.1); BASOPHILS 1.1 %; EOSINOPHILS 2.9 %; HEMATOCRIT 28.3 % (42.0-52.0); HEMOGLOBIN 9.4 gm/dL (14.0-18.0); LYMPHOCYTES 14.5 %; MCH 30.2 pg (26.0-34.0); MCHC 33.3 g/dL (28.0-37.0); MCV 90.7 fL (80.0-100.0); MONOCYTES 6.2 %; NUCLEATED RBCS 0 /100WBC; PLATELET COUNT* 325 thou/uL (150-400); POLYS 75.3 %; RBC 3.12 mil/uL (4.50-6.00); RDW-CV 17.1 % (10.5-14.5); WBC 5.5 thou/uL (4.0-11.0)
[2020-08-12 05:17] LABS: CALCIUM 7.4 mg/dL (8.5-10.1); POTASSIUM 5.1 mmol/L (3.5-5.1)
[2020-08-12 05:18] LABS: CREATININE 6.3 mg/dL (0.6-1.3)
[2020-08-12 08:00] VITALS: BP 159/68
[2020-08-12] MEDS ORDERED: PLAVIX 75 MG TA75 MG PO (10:07)
[2020-08-12] MEDS ORDERED: METOPROLOL SUCC25 M1 PO (14:39)
[2020-08-12 15:43] VITALS: BP 159/68
--- NOTE | 2020-08-14 12:38 | CON ---
[address] [address] CONSULTATION Name: ARTEM MANCILLA Room: [address] IN M.R.#: [id number] Admission: 08/09/20 Attend Phys: Colin Meraz Discharge: 08/12/20 Date of : 59 Report #: [id number] THIS REPORT FOR: cc: Pippa Rothman MD, Allison Louise MD Arakelov, Alexandr V. MD ~ DOC #: [id number] Nikhli Eisenberg MD DATE OF CONSULTATION: 08/10/2020 REFERRING PHYSICIAN: Dr. Suresh. REASON FOR CONSULTATION: Assist in providing dialysis. HISTORY OF PRESENT ILLNESS: The patient is a very pleasant 65-year-old gentleman with a medical history significant for diabetes mellitus type 2, end-stage renal disease, coronary artery disease, cardiomyopathy, peripheral artery disease, presented to the hospital with complaints of shortness of breath. His usual dialysis days are Sunday, , and Sunday. He had dialysis on Sunday. When he was admitted yesterday, he was admitted with fluid overload, so we dialyzed him urgently last night and he will be dialyzed again today. PAST MEDICAL HISTORY: 1. Diabetes mellitus type 2. 2. Peripheral artery disease. 3. End-stage renal disease. 4. History of chronic wounds. 5. Cardiomyopathy. FAMILY HISTORY: Positive for diabetes and hypertension. SOCIAL HISTORY: No current tobacco or alcohol abuse. MEDICATIONS: Reviewed. REVIEW OF SYSTEMS: Feels better today, but was quite short of breath yesterday. No chest pain, no fever, no chills. PHYSICAL EXAMINATION: GENERAL: Awake, alert, oriented. VITAL SIGNS: Reviewed. NECK: With elevated JVD. LUNGS: Few bibasilar crackles. HEART: [place] [address] CONSULTATION Name: ARTEM MANCILLA Room: [address]#: [id number] Admission: 08/09/20 Attend Phys: Colin Meraz Discharge: 08/12/20 Date of : 59 Report #: [id number] ABDOMEN: Soft. ASSESSMENT: 1. End-stage renal disease, dialysis on Sunday, and Sunday schedule. 2. Fluid overload. 3. Hypertension. 4. Diabetes mellitus type 2. PLAN: The patient was urgently dialyzed yesterday due to fluid overload and he will be dialyzed again today. The rest of the problem will be addressed by the primary team. Nikhil Eisenberg MD NAM <ELECTRONICALLY SIGNED> By: Nikhil Eisenberg MD 08/14/20 1238 1027 1709AlexMD lorie Corley
== END 2020-08-12 15:55 | disposition home health service (06) | DRG 286 ==
LOC: M.ERS 21:00 → M.TBA-ER 08-09 00:11 → M.2W 08-09 00:11
PROVIDERS: Internal Medicine; Personal Emergency Response Attendant; Registered Nurse; ADMIT Internal Medicine; ATTEND Internal Medicine
DX: I13.2 Hypertensive heart and chronic kidney disease with heart failure and with stage 5 chronic kidney disease, or end stage renal disease (principal); J15.6 Pneumonia due to other Gram-negative bacteria; N18.6 End stage renal disease; I50.43 Acute on chronic combined systolic (congestive) and diastolic (congestive) heart failure; E11.65 Type 2 diabetes mellitus with hyperglycemia; Z20.822 Contact with and (suspected) exposure to COVID-19; E11.22 Type 2 diabetes mellitus with diabetic chronic kidney disease; E11.40 Type 2 diabetes mellitus with diabetic neuropathy, unspecified; E11.51 Type 2 diabetes mellitus with diabetic peripheral angiopathy without gangrene; E03.9 Hypothyroidism, unspecified; E87.70 Fluid overload, unspecified; K59.00 Constipation, unspecified; I16.0 Hypertensive urgency; I25.5 Ischemic cardiomyopathy; I77.0 Arteriovenous fistula, acquired; D64.9 Anemia, unspecified; Z95.0 Presence of cardiac pacemaker; Z89.511 Acquired absence of right leg below knee; Z82.49 Family history of ischemic heart disease and other diseases of the circulatory system; Z83.3 Family history of diabetes mellitus; Z79.899 Other long term (current) drug therapy